=== PATIENT | male | born 1960 | race Caucasian/White ===

== ENCOUNTER 2023-03-15 09:04 | Outpatient (AMB) | payer OTHER, SELFPAY ==
--- NOTE | 2023-03-15 09:13 | AM.OFFWIN_ITS ---
Intake Vital Signs 03/15/23 09:16 Height 6 ft BP 130/80 Blood Pressure Location Lt brachial Position Sitting Pulse 58 Pulse Source Pulse Oximeter Temp 98.7 F Temp Source Oral Pulse Oximetry (%) 98 Oxygen Delivery Method Room Air Intake Visit Reasons: Rash Intake Note: Patient is here with rash in butt and groin area, he states that this ointment Fuoraucil cream and clotrimizole and betamethsone and desoninde cream. He states rash has been since Friday. Patient Tobacco Use Status: Never used Tobacco Allergies No Known Allergies Allergy (Verified 03/15/23 09:16) Do you need a note to return to daycare/school/sports/work: No HPI HPI Comments History of Present Illness Details This is a 62-year-old male who presents to the office today for sick visit. Patient complaining of erythema and drainage of his left scrotum. Patient states he has a chronic fungal or rash of his bottom and he has been utilizing fluorouracil/clotrimazole/betamethasone/desonide all combined together. He states he accidentally got some of this cream on his scrotum. Since then, he is having increased irritation, erythema, and drainage from his left PE: Erythema and purulent drainage and mild swelling of the left scrotal skin, otherwise benign A/P: Scrotal cellulitis, sent home on Keflex, advised not to utilize combination creams that are not supposed to be T other [facility] Social History Patient Tobacco Use Status: Never used Tobacco Review of Systems Const All systems reviewed & are unremarkable except as noted in HPI and below Reports no additional complaints Eyes Reports no additional complaints ENT Reports no additional complaints Card Reports no additional complaints Resp Reports no additional complaints GI Reports no additional complaints Reports no additional complaints Musc Reports no additional complaints Skin/Breast Reports system reviewed and no additional complaints, except as documented Neuro Reports no additional complaints Psych Reports no additional complaints Endo Reports no additional complaints Giuliano/Lymph Reports no additional complaints Aller/Immun Reports no additional complaints Physical Exam Vital Signs: Last Vital Signs Temp 98.7 F 03/15/23 09:16 Pulse 58 03/15/23 09:16 BP 130/80 03/15/23 09:16 Pulse Ox 98 03/15/23 09:16 Oxygen Delivery Method Room Air 03/15/23 09:16 Const General: cooperative, healthy appearing, no acute distress and well developed Orientation/consciousness: patient oriented x3 HEENT Head: Yes normal to inspection Ears: hearing grossly normal bilaterally General nose exam: Normal external nose present Face and sinus: Yes normal facial exam Mouth: Normal oral and palatal mucosa present Eyes General: appearance normal, both eyes and all related structures Pupils: Equal, round and reactive pupils present EOM: EOMs intact bilaterally Resp Effort & Inspection: normal respiratory effort and no respiratory distress Auscultation: clear to auscultation bilaterally Cardio Rate: regular rate Rhythm: regular rhythm Heart sounds: no gallops, no murmurs and no rubs Peripheral pulses: Peripheral pulses 2+ throughout GI Inspection: No distended Palpation (GI): Soft to palpation and nontender Auscultation: normal bowel sounds Skin Other: There is erythema/irritation with scant drainage from the skin of the left scrotum. No necrosis or bullae noted. No scrotal edema. Neuro General: patient oriented x3 Cranial nerves: Yes CN's II-XII intact bilaterally and Yes Equal, round and reactive pupils present Gait exam (Neuro): Normal gait present Motor exam (neuro): 5/5 motor strength present throughout Extrem General: Yes normal to inspection, Yes full ROM and Yes no clubbing, cyanosis or edema Psych Appearance: grossly normal Mental Status: mental status grossly normal Assessment & Plan Assessment & Plan (1) Cellulitis, scrotum: Code(s): N49.2 - Inflammatory disorders of scrotum Plan: This is a 62-year-old male presenting with irritation/erythema of his left scrotal skin. Patient's vital signs are stable and he is overall nontoxic appearing. On physical examination, there is erythema/irritation with scant drainage of the left scrotal skin. History and physical most consistent with scrotal cellulitis. No evidence of necrosis/bullae to suggest Elena gangrene. Patient is safe to be discharged home here. He was sent home on p.o. cephalexin 500 mg 4 times daily x5 days. He was also sent home on nystatin powder. Patient advised to follow-up here or proceed directly to the emergency room if he were to develop fever/chills, worsening erythema, or worsening drainage. Patient verbalizes understanding and he is in agreement with the plan. Medications: New cephalexin 500 mg PO QID 28 caps 0RF nystatin 1 appl topical BID 15 grams 0RF Coding Level of Care Code New Pt Level 3 (01651) Diagnoses Cellulitis, scrotum N49.2
[2023-03-15 09:16] VITALS: BP 130/80; PULSE 58; TEMP 37.1; O2SAT 98
== END 2023-03-15 09:29 | disposition home or self-care (01) ==
PROVIDERS: Visit Provider Physician Assistant Medical
DX: N49.2 Inflammatory disorders of scrotum (principal)
CPT/HCPCS: 99051; 99203

== ENCOUNTER 2023-07-31 10:31 | Emergency (ER) | payer OTHER, SELFPAY ==
--- NOTE | ~2023-07-31 | XR_ITS ---
EXAMINATION: XR ABDOMEN KUB CLINICAL INDICATION: Abdominal pain COMPARISON: None available. TECHNIQUE: AP view of the abdomen. FINDINGS: No dilated loops of bowel visualized. Mild fecal loading of the ascending colon. Pelvic phleboliths. Osseous structures are intact. Visualized portions of the lower chest are unremarkable. Soft tissues are unremarkable. XR/XR KUB IMPRESSION: 1. No dilated loops of bowel visualized. 2. Mild fecal loading of the ascending colon.
[2023-07-31 10:36] VITALS: BP 157/70; PULSE 70; RESP 18; TEMP 36.6; O2SAT 98; BMI 25.1
[2023-07-31 10:58] LABS: MANUAL DIFF FLAG NO
[2023-07-31 10:59] LABS: Basophils Percent Auto 0.3 % (0-2); Eosinophils Absolute Auto 0.1 X10*3/uL (0.0-0.4); Eosinophils Percent Auto 1.5 % (0-4); Hematocrit 41.7 % (42.0-52.0); Hemoglobin 14.2 g/dl (14.0-18.0); Imm Gran Abs Auto 0.02 X10*3/uL (0.00-0.03); Imm Gran Pct Auto 0.2 % (0.0-0.4); Lymphocytes Absolute Auto 1.7 X10*3/uL (1.2-4.9); Lymphocytes Percent Auto 17.9 % (20-40); Mean Corpuscular HGB Conc 34.1 g/dl (31.0-36.0); Mean Corpuscular Hemoglobin 31.6 pg (27.0-33.0); Mean Corpuscular Volume 92.9 fL (80.0-98.0); Mean Platelet Volume 9.5 fL (9.4-12.4); Monocytes Absolute Auto 0.7 X10*3/uL (0.1-1.2); Monocytes Percent Auto 7.7 % (2-11); Neutrophils Absolute Auto 6.7 x10*3/uL (2.0-8.3); Neutrophils Percent Auto 72.4 % (45-73); Platelet Count 285 X10*3/uL (160-400); Red Blood Count 4.49 X10*6/uL (4.60-5.80); Red Cell Distribution Width 11.5 % (11.0-16.0); White Blood Count 9.3 X10*3/uL (4.8-10.8)
[2023-07-31 11:12] LABS: Anion Gap 10 (12-20); Blood Urea Nitrogen 18 mg/dL (9-16); Calcium 9.2 mg/dL (8.4-10.2); Carbon Dioxide 26 mmol/L (22-29); Chloride 106 mmol/L (96-108); Creatinine Clr Calc Pharmacy 87.3; Estimated Glomerular Filt Rate > 60; Glucose Random 106 mg/dL (60-115); Sodium 138 mmol/L (135-145)
--- NOTE | 2023-07-31 11:41 | ED_ITS ---
HPI - General Adult General Chief complaint: Abdominal Pain Stated complaint: abd pain Time Seen by Provider: 07/31/23 11:40 Source: patient Mode of arrival: ambulatory Limitations: no limitations History of Present Illness HPI narrative: 63 year-old male with no past medical history presents to emergency department with abdominal pain since 07/24/2023. The patient states he had a large meal a week ago and he has been feeling bloated, passing gas, and feeling full ever since. He was concerned that his usual bowel movements have changed in frequency. He states he has had episodes of diarrhea which he describes as watery. He passed stool this morning, 07/31/2023, which he described as smooth and sausage-like and he has had flatulence for the past week. He tried to take GasX, but it did not alleviate his symptoms. He has had no sick contacts or travel history in the last month. He reports he has increased his water intake and has skipped his morning breakfast despite having an appetite to try and alleviate his symptoms. The patient denies fever, loss of appetite, night sweats, fatigue, vision changes, loss of vision, double vision, chest pain, palpitations, lightheadedness, dizziness, nausea, vomiting, and changes in urination. Onset (ago): week(s) (1 week ago) Location: abdomen Radiation: non-radiation Severity: mild Severity scale (1-10): 1 Quality: other (discomfort) Relieving factors: none Exacerbating factors: none Associated symptoms: denies other symptoms Treatments prior to arrival: none Related Data Previous Rx's Medication Instructions Recorded cephalexin 500 mg capsule 500 mg PO QID #28 caps 03/15/23 nystatin 100,000 unit/gram topical 1 appl topical BID #15 grams 03/15/23 powder Allergies Allergy/AdvReac Type Severity Reaction Status Date / Time No Known Allergies Allergy Verified 07/31/23 10:36 Review of Systems 2 Constitutional: Constitutional: Reports no additional constitutional complaints, Denies chills, Denies fever(s) and Denies night sweats Eyes: Eyes: Reports no additional eye complaints, Denies blurry vision, Denies change in vision, Denies diplopia, Denies eye discharge, Denies loss of vision and Denies eye pain ENT: Denies dizziness Cardiovascular: Cardiovascular: Reports no additional cardiovascular complaints, Denies chest pain, Denies lightheadedness, Denies Loss of Consciousness and Denies dyspnea Respiratory: Respiratory: Reports no additional respiratory complaints and Denies dyspnea Gastrointestinal: Gastrointestinal: Reports no additional gastrointestinal complaints, Reports abdominal pain, Denies melena, Denies hematochezia, Reports change in bowel habits, Reports change in stool character, Reports constipation and Reports diarrhea Genitourinary: Genitourinary: Reports no additional male genitourinary complaints, Denies hematuria, Denies oliguria, Denies difficulty urinating, Denies dysuria, Denies urinary frequency, Denies urinary hesitancy, Denies urinary incontinence and Denies urinary urgency Musculoskeletal: Musculoskeletal: Reports no additional musculoskeletal complaints, Denies numbness and Denies tingling Neurologic: Denies dizziness, Denies loss of vision, Denies numbness and Denies tingling Psychiatric: Psychiatric: Reports no additional psychiatric complaints Endocrine: Endocrine: Reports no additional endocrine complaints Hematologic/Lymphatic: Hematologic/Lymphatic: Reports no additional hematologic/lymphatic complaints Allergic/Immunologic: Allergic/Immunologic: Reports no additional allergic/immunologic complaints PMFSH Past Medical History Attestation statement: The following information was validated with the patient. Source: old records reviewed and nursing notes reviewed Onset Date is defined in the Problem List Problems that require an onset date and time if occurred within 24 hrs of arrival to the ED Aortic Dissection and Rupture; Neurologic impairment; Cardiopulmonary Arrest; Endotracheal Intubation; Insertion or Replacement of Mechanical Circulatory Assist Device Social History Social History Patient Tobacco Use Status: Never used Tobacco Physical Exam ED Vital Signs: Vital Signs - 24 hr 07/31/23 10:36 07/31/23 12:46 Temperature 98 F 98.3 F Pulse Rate 70 68 Respiratory Rate 18 16 Blood Pressure 157/70 H 145/79 H Pulse Oximetry 98 100 Oxygen Delivery Method Room Air Room Air BMI result Body Mass Index 25.1 Const General: cooperative, no acute distress, alert and awake Nutritional Appearance: well nourished Orientation/consciousness: patient oriented x3 Limitations: no limitations HENMT Head: Yes normal to inspection and Yes atraumatic Ears: hearing grossly normal bilaterally and external ears normal General nose exam: Normal external nose present, no nasal discharge noted and no epistaxis Face and sinus: Yes normal facial exam, No abrasion and No laceration Mouth: Normal oral and palatal mucosa present, no drooling and no muffled voice Eyes General: appearance normal, both eyes and all related structures Periorbital: periorbital findings normal Eyelids: Yes eyelids normal Conjunctivae: conjunctivae normal Pupils: Equal, round and reactive pupils present EOM: EOMs intact bilaterally Neck Neck: Yes normal visual inspection, Yes full ROM and Yes no lymphadenopathy Chest Chest palpation & inspection: normal inspection of the chest Resp Effort & Inspection: normal respiratory effort and able to speak in complete sentences GI Inspection: Yes normal to inspection Palpation (GI): Soft to palpation, not firm, nontender, no guarding and not rigid Neuro General: patient oriented x3 and moves all extremities Cranial nerves: Yes Equal, round and reactive pupils present Cognition (Neuro): normal cognition Motor exam (neuro): 5/5 motor strength present throughout Sensory Exam: Normal double simultaneous stimulation for sensation Coordination: [id number] test normal Extrem General: Yes normal to inspection, Yes full ROM and Yes capillary refill normal Psych Appearance: grossly normal Mental Status: mental status grossly normal Affect: normal affect Attitude: cooperative Thought process: Normal thought process present Thought content: Normal thought content present Insight: Good insight present (Psych) Medical Decision Making Medical Decision Making MDM Narrative: Patient is a 62 year old assigned male at with no reported medical history presenting to the emergency department today with abdominal pain and change in bowel frequency. Patient's physical exam was unremarkable. Patient's blood work was unremarkable. Patient's urine showed no acute process. Patient's KUB x-ray showed mild constipation. I explained my physical exam findings as well as all test results to the patient. I answered all questions asked by the patient. I stressed the importance of the patient taking his medication as prescribed. I stressed the importance of the patient following up with his primary care provider. I stressed the importance of the patient returning to the emergency department immediately if his symptoms were to worsen or if he were to develop any dizziness, shortness of breath, difficulty breathing, chest pain, blurry vision, loss of vision, nausea, vomiting, abdominal pain, fever, chills, back pain, or any other complaints. Patient verbalized agreement and understanding with this treatment plan and discharge. Differential Diagnosis Differential Diagnoses: The differential diagnosis associated with the presentation includes Constipation Abdominal pain Diarrhea Admission/Observation Consideration of admission/observation: Escalation of care including admission/observation considered Patient would have been admitted to the hospital had his work up had any findings where hospital admission was appropriate and his clinical presentation warranted hospital admission. Lab Data [facility] Lab Attestation statement: I reviewed the patient's lab results. My interpretation of these results are in the [facility] Rationale portion of this note. 07/31/23 10:52 07/31/23 10:52 Labs: Lab Results 07/31/23 07/31/23 07/31/23 Range/Units 10:52 11:59 13:41 WBC 9.3 (4.8-10.8) X10*3/uL RBC 4.49 L (4.60-5.80) X10*6/uL Hgb 14.2 (14.0-18.0) g/dl Hct 41.7 L (42.0-52.0) % MCV 92.9 (80.0-98.0) fL MCH 31.6 (27.0-33.0) pg MCHC 34.1 (31.0-36.0) g/dl RDW 11.5 (11.0-16.0) % Plt Count 285 (160-400) X10*3/uL MPV 9.5 (9.4-12.4) fL Immature Gran % (Auto) 0.2 (0.0-0.4) % Neut % (Auto) 72.4 (45-73) % Lymph % (Auto) 17.9 L (20-40) % [place] % (Auto) 7.7 (2-11) % Eos % (Auto) 1.5 (0-4) % Baso % (Auto) 0.3 (0-2) % Lymph # (Auto) 1.7 (1.2-4.9) X10*3/uL [place] # (Auto) 0.7 (0.1-1.2) X10*3/uL Eos # (Auto) 0.1 (0.0-0.4) X10*3/uL Baso # (Auto) 0.0 (0.0-0.2) X10*3/uL Abs Immat Gran (auto) 0.02 (0.00-0.03) X10*3/uL Absolute Neuts (auto) 6.7 (2.0-8.3) x10*3/uL Absolute Nucleated RBC 0.000 (0.0-0.012) X10*3/uL Nucleated RBC % (auto) 0.0 (0.0-0.2) /100WBC Sodium 138 (135-145) mmol/L Potassium 4.0 (3.3-5.1) mmol/L Chloride 106 (96-108) mmol/L Carbon Dioxide 26 (22-29) mmol/L Anion Gap 10 L (12-20) BUN 18 H (9-16) mg/dL Creatinine 0.95 (0.5-1.4) mg/dL Estim Creat Clear Calc 87.3 Estimated GFR > 60 Random Glucose 106 (60-115) mg/dL Calcium 9.2 (8.4-10.2) mg/dL Magnesium 2.1 (1.6-2.6) mg/dL Total Bilirubin 0.7 (0.0-1.0) mg/dL Direct Bilirubin 0.2 (0.0-0.5) mg/dL AST 19 (5-37) U/L ALT 15 (0-40) U/L Alkaline Phosphatase 48 (39-117) U/L Total Protein 7.4 (6.5-8.0) g/dL Albumin 4.1 (3.5-5.0) g/dL Lipase 25 (8-78) U/L Urine Color Yellow Urine Appearance Clear Urine pH 5.0 (5.0-9.0) Ur Specific [place] 1.025 (1.005-1.025) Urine Protein Negative (Neg-Trace) mg/dL Urine Glucose (UA) Negative (Negative) mg/dL Urine Ketones Trace (Negative) mg/dL Urine Blood Negative (Negative) Urine Nitrite Negative (Negative) Ur Leukocyte Esterase Negative (Negative) COVID-19 ([place]) Negative (Negative) COVID-19 Clin Com See Note Influenza Type A ([facility]) Negative (Negative) Influenza Type B ([facility]) Negative (Negative) Influenza A & B Note See Note Independent Interpretation I performed an independent interpretation of an: Plain X-Ray Interpretation: My interpretation is in agreement with the radiologist's impression of this imaging study. - EXAMINATION: XR ABDOMEN KUB CLINICAL INDICATION: Abdominal pain COMPARISON: None available. TECHNIQUE: AP view of the abdomen. FINDINGS: No dilated loops of bowel visualized. Mild fecal loading of the ascending colon. Pelvic phleboliths. Osseous structures are intact. Visualized portions of the lower chest are unremarkable. Soft tissues are unremarkable. XR/XR KUB IMPRESSION: 1. No dilated loops of bowel visualized. 2. Mild fecal loading of the ascending colon. Dictated By: Irma Lipscomb MD Signed By: Electronically signed by Irma Lipscomb MD 07/31/23 1451 Radiology Impression Discussion of test interpretation with radiology: I have reviewed the radiologist's reading. Tests considered The following testing was considered but not selected: A CT scan of the abdomen/pelvis was considered however, the patient's current work up and clinical presentation did not warrant it. I explained this to the patient who verbalized understanding and agreement. Discharge Plan Discharge Clinical Impression: Constipation Patient Disposition: Home, Self-Care Instructions: Constipation (DC) Additional Instructions: Follow up with your primary care provider. Return to the emergency department immediately if your symptoms worsen or if you develop any dizziness, shortness of breath, difficulty breathing, chest pain, blurry vision, loss of vision, nausea, vomiting, abdominal pain, fever, chills, back pain, or any other complaints. Prescriptions: No Action cephalexin 500 mg capsule 500 mg PO QID Qty: 28 0RF nystatin 100,000 unit/gram powder 1 appl topical BID Qty: 15 0RF Referrals: [facility] [place]] (Call to establish and follow up with a primary care provider. If you already have a primary care provider, please follow up with them.) [facility] [place] [facility] [place] (Call to establish and follow up with a primary care provider. If you already have a primary care provider, please follow up with them.) [facility] [place] [facility] [place] (Call to establish and follow up with a primary care provider. If you already have a primary care provider, please follow up with them.) Discharge Date/Time: 07/31/23 14:11 Print Language: Peruvian
[2023-07-31 12:30] LABS: COVID-19 Test Negative (Negative); IDNOW Serial# 6674DD1D
[2023-07-31 12:32] LABS: IDNOW Serial# 152EDE1D; Influenza A Negative (Negative); Influenza B2 Negative (Negative)
[2023-07-31 12:45] LABS: Alanine Aminotransferase 15 U/L (0-40); Albumin Level 4.1 g/dL (3.5-5.0); Alkaline Phosphatase 48 U/L (39-117); Aspartate Amino Transferase 19 U/L (5-37); Bilirubin Direct 0.2 mg/dL (0.0-0.5); Bilirubin Total 0.7 mg/dL (0.0-1.0); Lipase 25 U/L (8-78); Magnesium 2.1 mg/dL (1.6-2.6); Total Protein 7.4 g/dL (6.5-8.0)
[2023-07-31 12:46] VITALS: BP 145/79; PULSE 68; RESP 16; TEMP 36.8; O2SAT 100
[2023-07-31 13:47] LABS: Appearance Urine Clear; Color Urine Yellow; Glucose Urine UA Negative (Negative); Leukocyte Esterase Urine Negative (Negative); Nitrite Urine Negative (Negative); Specific Gravity - Urine 1.025 (1.005-1.025); Urine Blood Negative (Negative); Urine Ketones Trace mg/dL (Negative); Urine Protein Negative (Neg-Trace)
== END 2023-07-31 14:11 | disposition home or self-care (01) ==
PROVIDERS: Physician Assistant Medical; Emergency Provider Emergency Medicine
DX: K59.00 Constipation, unspecified (principal); Z11.52 Encounter for screening for COVID-19
CPT/HCPCS: 36415; 74018; 80048; 80076; 81003; 83690; 83735; 85025; 87502; 87635; 99283

== ENCOUNTER 2023-08-15 09:01 | Outpatient (AMB) | payer OTHER, SELFPAY ==
--- NOTE | 2023-08-15 09:12 | MHC.PC.OV ---
Vital Signs 08/15/23 09:13 Height 6 ft Weight 190 lb 8 oz BMI 25.8 BP 128/84 Blood Pressure Location Rt brachial Position Sitting Pulse 72 Pulse Source Pulse Oximeter Pulse Oximetry (%) 100 Oxygen Delivery Method Room Air Intake Visit Reasons: EST care Intake Note: Pt is here to est care Pt has had 2 colon screening last one was 2019 Allergies No Known Allergies Allergy (Verified 08/15/23 09:23) Medication List - Last Reconciled 08/15/23 by DAVID Bernardo No Known Home Meds Tobacco use date assessed: 08/15/23 Dental Screening Dental Screen Date: 08/15/23 Did you have a dental visit in the last 12 months?: Yes Did you have a dental problem in the last 6 months where you did not have access to dental care?: No Was dental information given to patient?: Patient has dentist HPI HPI Comments History of Present Illness Details Patient is a 62-year-old male here to establish care. 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 He also has a medical history significant for nocturia. He last saw a urologist 8-10 years prior. He has had surgery of bilateral shoulder, right shoulder rotator cuff repair, left shoulder was labrum repair and biceps rupture repair. He also has a his of meniscus repair in the bilateral knees. Patient denies pain to these areas He states he has not had a primary care provider in several years. Patient just moved up from [facility]. He is declining the influenza and COVID booster this year. States he recently got both shingles vaccines. His most recent colonoscopy was in 2019, patient has agreed to send us medical records from his previous GI provider. Patient has a chief complaint of nocturia. He states that he has learned to live with the issue, however he wakes up several times at night and he feels tired in the morning. Denies numbness, tingling, pain. Denies blood in urine. Denies eating or drinking excessively before bedtime. [facility] Medical History (Updated 08/15/23 @ 10:06 by DAVID Bernardo) Biceps muscle tear Hearing loss in right ear Surgical History (Updated 08/15/23 @ 09:26 by DAVID Bernardo) S/P right rotator cuff repair H/O lateral meniscus repair of right knee Family History (Updated 08/15/23 @ 09:27 by DAVID Bernardo) Brother S/P CABG x 4 Social History Housing: House Alcohol intake: current Comment: 1 to 2 drinks per week Patient Tobacco Use Status: Never used Tobacco e-Cigarette/Vaping Use: Never Used Second Hand Smoke Exposure: No service: No Current occupational status: retired Cognitive needs: No Hearing needs: No Vision needs: No Questionnaire PHQ-9 Over the last 2 weeks, how often have you been bothered by any of the following problems? 1. Little interest or pleasure in doing things: not at all 2. Feeling down, depressed, or hopeless: not at all 3. Trouble falling or staying asleep, or sleeping too much: not at all 4. Feeling tired or having little energy: not at all 5. Poor appetite or overeating: not at all 6. Feeling bad about yourself - or that you are a failure or have let yourself or your family down: not at all 7. Trouble concentrating on things, such as reading the newspaper or watching television: not at all 8. Moving or speaking so slowly that other people could have noticed. Or the opposite - being so fidgety or restless that you have been moving around a lot more than usual: not at all 9. Thoughts that you would be better off or of hurting yourself in some way: not at all Total score: 0 Depression Screening Interpretation: Negative Depression Screening Done: Yes 73460 - PHQ-9 Billing: Yes Source: Developed by Drs. Dionicio Marino, Ashley Alford, Mckinley Dominguez and colleagues, with an educational magda from [employer]. Thrive Questionnaire Date Thrive assessed: 08/15/23 I am a: Patient What is your living situation today?: I have a steady place to live Within the past 12 months, did the food you bought not last and you didn't have the money to get more?: Never true Within the past 12 months, did you worry whether your food would run out before you got money to buy more?: Never true Do you have trouble paying for medicines?: No Do you have trouble getting transportation to medical appointments?: No Do you have trouble paying your heating and electricity bill?: No Do you have trouble taking care of your child, family member or friend?: No Do you have trouble with day-to-day activities such as bathing, preparing meals, shopping, managing finances, etc.?: No Are you currently unemployed and looking for a job?: No Are you interested in more education?: No THRIVE Score: 0 AUDIT C Alcohol Use Questionnaire (AUDIT-C) 1. How often do you have a drink containing alcohol?: 4 or more times a week 2. How many drinks containing alcohol do you have on a typical day when you are drinking?: 1 or 2 3. How often do you have six or more drinks on one occasion?: Never Total Score: 4 EVERETT-7 AMB Questionnaire EVERETT-7 Date EVERETT - 7 assessed: 08/15/23 Feeling nervous, anxious, or on edge: 0 = Not at all Not being able to stop or control worryin = Not at all Worrying too much about different things: 0 = Not at all Trouble relaxin = Not at all Being so restless that it is hard to sit still: 0 = Not at all Becoming easily annoyed or irritable: 0 = Not at all Feeling afraid as if something awful might happen: 0 = Not at all Total EVERETT-7 score (0-4 normal; 5-9 mild; 10-14 moderate; 15-21 severe): 0 Source: Developed by Drs. Dionicio Marino, Ashley Alford, Mckinley Dominguez and colleagues, with an educational magda from [employer]. EVERETT-7 Assessment Billing EVERETT-7 Assessment Tool: EVERETT-7 Assessment 47101 Review of Systems Const Details: Constitutional : No Weight loss, No Fever, No Chills, No Fatigue, No Malaise Cardiovascular : No Chest Pain, No SOB, No Dyspnea on Exertion, No Orthopnea, No Edema, No Palpitations Respiratory : No Cough, No Sputum, No Wheezing Gastrointestinal : No Nausea, No Vomiting, No Diarrhea, No Constipation, No abdominal Pain, No Hematochezia, No Melena Genitourinary : No Dysuria, Admits nocturia. Musculoskeletal : No joint pain, No Myalgias, No Joint Swelling Skin : No Skin Lesions, No rash Neuro : No Weakness, No Numbness, No Dizziness, No Headache Psych : No Anxiety/Panic, No Depression Heme/Lymph: No Bruising, No Bleeding,No Lymphadenopathy Endocrine : No Polyuria, No Polydipsia All other systems reviewed and are negative Physical exam (Primary Care) Care Plan Goal for BP management: Vital signs reviewed are stable BMI result Body Mass Index 25.8 Tobacco/Smoking Status: Tobacco use Status Tobacco use date assessed 08/15/23 08/15/23 09:17 Patient Tobacco Use Status Never used Tobacco 08/15/23 09:17 e-Cigarette/Vaping Use Never Used 08/15/23 09:17 Depression Screening Interpretation: Negative Const General: cooperative and no acute distress Orientation/consciousness: patient oriented x3 Limitations: no limitations HENMT Head: Yes normal to inspection and Yes normocephalic Teeth and gingiva: dentition normal Throat: Yes posterior oropharynx normal Eyes General: appearance normal, both eyes and all related structures Neck Neck: Yes normal visual inspection, Yes full ROM and Yes no lymphadenopathy Resp Auscultation: clear to auscultation bilaterally Cardio Rate: regular rate Rhythm: regular rhythm Heart sounds: S1 normal heart sound present and S2 normal heart sound present Peripheral pulses: Peripheral pulses 2+ throughout Neuro General: patient oriented x3 and CN's II-XI intact bilaterally Gait exam (Neuro): Normal gait present Motor exam (neuro): 5/5 motor strength present throughout Deep tendon reflexes (DTR's): Right patellar reflex intensity grade: 2+ and Left patellar reflex intensity grade: 2+ Psych Thought content: Normal thought content present Insight: Good insight present (Psych) Judgement: Good judgement present (Psych) Assessment and Plan Assessment & Plan (1) Nocturia: Comment: Going to draw labs including PSA. Patient will get referral to Urology. Code(s): R35.1 - Nocturia Plan: Take your medications as prescribed. If you were prescribed antibiotics today, it is important that you take your medication to their entirety, do not skip any doses, do not finish them early. Follow-up with your primary care provider this week. Return to the emergency department with new or worsening symptoms. Such as fevers, chills, chest pain, shortness of breath, nausea, vomiting, dizziness, headache, vision changes, lethargy In case of emergency call 911 Plan Will follow-up with labs. Patient will have annual physical in 5 months. Orders: Orders Comprehensive [place]. Panel Fast Today Z91.89 - Other specified personal risk factors, not elsewhere classified Lipid Panel Today Z13.220 - Encounter for screening for lipoid disorders Vitamin B6 Today Z13.21 - Encounter for screening for nutritional disorder UA CC w/rflx Micro + Cult Today E86.0 - Dehydration TSH reflex Free T4 Today Z13.29 - Encounter for screening for other suspected endocrine disorder Complete Blood Count Auto Diff Today Z13.0 - Encounter for screening for diseases of the blood and blood-forming organs and certain disorders involving the immune mechanism PSA,Total (Free>4and<10) Today Z12.5 - Encounter for screening for malignant neoplasm of prostate Vitamin D 25-OH (D2 and D3) Today Z13.21 - Encounter for screening for nutritional disorder Vitamin B12 Today Z13.21 - Encounter for screening for nutritional disorder Referrals Urology Referral R35.1 - Nocturia Review Flu Vaccine not done: patient reason Coding Level of Care Code Est Pt Level 3 (94190) Diagnoses Nocturia R35.1 Additional Codes EVERETT-7 Assessment Billing - EVERETT-7 Assessment Tool: EVERETT-7 Assessment 40605 ([id number]) Time Spent (min) 45
[2023-08-15 09:13] VITALS: BP 128/84; PULSE 72; O2SAT 100; BMI 25.8
== END 2023-08-15 09:48 | disposition home or self-care (01) ==
PROVIDERS: Visit Provider Nurse Practitioner Primary Care
DX: R35.1 Nocturia (principal)
CPT/HCPCS: 99213

== ENCOUNTER 2023-08-15 09:57 | Outpatient (REF) | payer OTHER, SELFPAY ==
[2023-08-15 13:16] LABS: Appearance Urine Turbid; Color Urine Yellow; Glucose Urine UA Negative (Negative); Leukocyte Esterase Urine Negative (Negative); Nitrite Urine Negative (Negative); PH 5.5 (5.0-9.0); Specific Gravity - Urine 1.025 (1.005-1.025); Urine Blood Negative (Negative); Urine Ketones Trace mg/dL (Negative); Urine Protein Negative (Neg-Trace)
[2023-08-15 13:17] LABS: MANUAL DIFF FLAG NO
[2023-08-15 13:31] LABS: Basophils Percent Auto 0.6 % (0-2); Eosinophils Absolute Auto 0.3 X10*3/uL (0.0-0.4); Eosinophils Percent Auto 3.8 % (0-4); Hematocrit 43.9 % (42.0-52.0); Hemoglobin 14.7 g/dl (14.0-18.0); Imm Gran Abs Auto 0.01 X10*3/uL (0.00-0.03); Imm Gran Pct Auto 0.1 % (0.0-0.4); Lymphocytes Absolute Auto 1.5 X10*3/uL (1.2-4.9); Lymphocytes Percent Auto 21.8 % (20-40); Mean Corpuscular HGB Conc 33.5 g/dl (31.0-36.0); Mean Corpuscular Hemoglobin 31.5 pg (27.0-33.0); Mean Platelet Volume 10.6 fL (9.4-12.4); Monocytes Absolute Auto 0.3 X10*3/uL (0.1-1.2); Neutrophils Absolute Auto 4.7 x10*3/uL (2.0-8.3); Neutrophils Percent Auto 68.7 % (45-73); Platelet Count 307 X10*3/uL (160-400); Red Blood Count 4.67 X10*6/uL (4.60-5.80); White Blood Count 6.8 X10*3/uL (4.8-10.8)
[2023-08-15 14:02] LABS: Alanine Aminotransferase 15 U/L (0-40); Albumin Level 4.2 g/dL (3.5-5.0); Alkaline Phosphatase 45 U/L (39-117); Anion Gap 12 (12-20); Aspartate Amino Transferase 20 U/L (5-37); Bilirubin Total 0.5 mg/dL (0.0-1.0); Blood Urea Nitrogen 21 mg/dL (9-16); Calcium 9.5 mg/dL (8.4-10.2); Carbon Dioxide 25 mmol/L (22-29); Chloride 105 mmol/L (96-108); Cholesterol 190 mg/dL (<200); Estimated Glomerular Filt Rate > 60; Glucose Fasting 92 mg/dL (60-99); HDL Cholesterol 57 mg/dL (>40); LDL Cholesterol Calculated 126 mg/dL (<100); Potassium 4.4 mmol/L (3.3-5.1); Sodium 138 mmol/L (135-145); TSH reflex Free T4 3.42 uIU/mL (0.32-4.0); Total Protein 7.4 g/dL (6.5-8.0); Triglycerides 39 mg/dL (<150)
[2023-08-15 14:03] LABS: PSA,Total (Free>4and<10) 0.81 ng/mL (0.00-4.00)
[2023-08-15 14:10] LABS: Vitamin B12 718 pg/mL (200-900)
[2023-08-20 15:42] LABS: Vitamin D 25-OH, D2 <4 ng/mL; Vitamin D 25-OH, D3 26 ng/mL; Vitamin D 25-OH, Total 26 ng/mL (30-100)
[2023-08-21 17:15] LABS: Vitamin B6 25.8 ng/mL (2.1-21.7)
== END 2023-08-15 09:58 | disposition home or self-care (01) ==
LOC: HO.HMGCLDS 09:57
PROVIDERS: PCP Nurse Practitioner Primary Care; Visit Provider Nurse Practitioner Primary Care
DX: E86.0 Dehydration (principal); Z91.89 Other specified personal risk factors, not elsewhere classified; Z13.220 Encounter for screening for lipoid disorders; Z13.29 Encounter for screening for other suspected endocrine disorder; Z13.21 Encounter for screening for nutritional disorder; Z13.0 Encounter for screening for diseases of the blood and blood-forming organs and certain disorders involving the immune mechanism; Z12.5 Encounter for screening for malignant neoplasm of prostate
CPT/HCPCS: 36415; 80053; 80061; 81003; 82306; 82607; 84153; 84207; 84443; 85025

== ENCOUNTER 2023-10-23 08:56 | Outpatient (AMB) | payer OTHER, SELFPAY ==
--- NOTE | 2023-10-23 08:58 | A.OFFVIS_ITS ---
Intake Intake Visit Reasons: Nocturia Intake Note: NEW Patient presents today to established treatment for Nocturia: Meds- None Allergies to Antibiotic- No Known Allergies Blood Thinner- None Post Void Residual: 27 mL Mower Operator Required: No Accompanied by: Self / Same As Patient Allergies No Known Allergies Allergy (Verified 10/23/23 08:59) Medication List - Last Reconciled 10/23/23 by Hilton Rivas MD No Known Home Meds HPI HPI Comments History of Present Illness Details Frankie is a 62-year-old male who is here with complaints of urinating frequently especially at nighttime. He states that he has seen urologist in the past dating back to about 10 years ago. He states that in the past he had a procedure on the prostate. He has been told that his prostate is not enlarged. He is up at night to urinate every 1-1/2-2 hours. He states he also goes frequently during the day. He admits to not drinking a lot of water, however he denies excessive caffeine intake. He denies history of nicotine use. He states that he thinks he passed a kidney stone in the past. AUA symptom score 30. He has not taking any prescribed medication. Labs reviewed-PSA 08/15/2023--0.81 ng/mL. Bladder scan PVR 27 mL. Urinalysis 0 leukocytes, 0 blood. Prostate exam- nontender smooth. Plan discussed voiding diary for 3 days, urodynamics, ultrasound retrope ritoneum. [facility] Medical History Biceps muscle tear Hearing loss in right ear Surgical History S/P right rotator cuff repair H/O lateral meniscus repair of right knee Family History Brother S/P CABG x 4 Social History Housing: House Alcohol intake: current Comment: 1 to 2 drinks per week Patient Tobacco Use Status: Never used Tobacco e-Cigarette/Vaping Use: Never Used Second Hand Smoke Exposure: No service: No Current occupational status: retired Cognitive needs: No Hearing needs: No Vision needs: No Questionnaire AUA Symptom Score AUA Incomplete emptying - It does not feel like I empty my bladder all the way.: 4 - More than half the time Frequency - I have to go again less than two hours after I finish urinating.: 5 - Almost always Intermittency - I stop and start again several times when I urinate.: 4 - More than half the time Urgency - It is hard to wait when I have to urinate.: 3 - About half the time Weak stream - I have a weak urinary stream.: 5 - Almost always Straining - I have to push or strain to begin urination.: 4 - More than half the time Nocturia - I get up to urinate after I go to bed until the time I get up in the morning.: 5 time or more AUA Symptom Score: 30 Quality of life due to urinary symptoms: If you were to spend the rest of your life with your urinary condition the way it is now, how would you feel about that?: Mostly dissatisfied Source: Allen HUFFMAN, An GONZALEZ Jr, O'Rubin MP, et al, and the Measurement Committee of the [employer] [employer]. The [place] [employer] symptom index for benign prostatic hyperplasia. J Urol. 1992; 148: 4082-8208. Copyright 1992 [place] [employer] Review of Systems Const All systems reviewed & are unremarkable except as noted in HPI and below Reports no additional complaints Eyes Reports no additional complaints ENT Reports no additional complaints Card Reports no additional complaints Resp Reports no additional complaints GI Reports no additional complaints Reports as per HPI Musc Reports no additional complaints Skin/Breast Reports system reviewed and no additional complaints, except as documented Neuro Reports no additional complaints Psych Reports no additional complaints Endo Reports no additional complaints Giuliano/Lymph Reports no additional complaints Aller/Immun Reports no additional complaints Physical Exam Const General: healthy appearing, no acute distress and well developed Orientation/consciousness: patient oriented x3 HEENT Head: Yes normocephalic and Yes atraumatic Eyes Conjunctivae: conjunctivae normal Neck Neck: Yes normal visual inspection Chest Chest palpation & inspection: normal inspection of the chest Resp Effort & Inspection: normal respiratory effort Cardio Rate: regular rate GI Inspection: Yes normal to inspection Other: Prostate Exam: Smooth, nontender Skin General skin exam: no rashes or lesions noted Neuro General: patient oriented x3 Extrem General: No pedal edema Psych Appearance: grossly normal Affect: normal affect Office Procedures Post Void Residual Post Residual Void Post Void Residual (PVR): 27 [id number] Void Residual by ultrasound Results AMB Urinalysis, Automated UA Leukoctes 0 Kp/uL Last Edit by MAITE Pierson on 10/23/23 09:23 UA Nitrite Negative Last Edit by MAITE Pierson on 10/23/23 09:23 UA Urobilinogen 0.2 mg/dL Last Edit by MAITE Pierson on 10/23/23 09:2 3 UA Protein 0 mg/dL Last Edit by MAITE Pierson on 10/23/23 09:23 UA pH 5.0 Last Edit by MAITE Pierson on 10/23/23 09:23 UA Blood 0 Александр/uL Last Edit by MAITE Pierson on 10/23/23 09:23 UA Specific [place] 1.020 Last Edit by MAITE Pierson on 10/23/23 09: 23 UA Ketone Negative Last Edit by MAITE Pierson on 10/23/23 09:23 UA Bilirubin 0 mg/dL Last Edit by MAITE Pierson on 10/23/23 09:23 UA Glucose 0 mg/dL Last Edit by MAITE Pierson on 10/23/23 09:23 Results Reviewed Results Reviewed: Laboratory Last Values Urine pH (Auto) 5.0 10/23/23 09:07 Specific [place] (Auto) 1.020 10/23/23 09:07 Urine Protein (Auto) 0 mg/dL 10/23/23 09:07 Glucose (UA)(Auto) 0 mg/dL 10/23/23 09:07 Urine Ketones (Auto) Negative 10/23/23 09:07 Urine Blood (Auto) 0 Александр/uL 10/23/23 09:07 Urine Nitrite (Auto) Negative 10/23/23 09:07 Urine Bilirubin (Auto) 0 mg/dL 10/23/23 09:07 Urine Urobilinogen (Auto) 0.2 mg/dL 10/23/23 09:07 Leukocyte Esterase (Auto) 0 Kp/uL 10/23/23 09:07 Assessment & Plan Assessment & Plan (1) Nocturia: Comment: Going to draw labs including PSA. Patient will get referral to Urology. Code(s): R35.1 - Nocturia (2) History of kidney stones: Code(s): Z87.442 - Personal history of urinary calculi (3) Urinary frequency: Code(s): R35.0 - Frequency of micturition Plan Plan discussed voiding diary for 3 days, urodynamics, ultrasound retroperitoneum. Orders: Orders AMB Post Void Residual by ultrasound Today N39.8 - Other specified disorders of urinary system US retroperitoneal comp Today R35.0 - Frequency of micturition, R35.1 - Nocturia, Z87.442 - Personal history of urinary calculi AMB Urinalysis Automated Today Z13.9 - Encounter for screening, unspecified Patient Instructions: The patient had an opportunity to ask questions regarding treatment plan. All questions were answered. Laboratory studies and physical exam results were discussed and reviewed in detail. No major barriers to understanding were identified. The patient expressed understanding and agreement with the above treatment plan. The patient is aware they should contact our office by phone for worsening of their current condition or the appearance of new symptoms. Compliance is encouraged with any medications and followup testing that is ordered. It is a privilege to be allowed the opportunity to participate in the urologic care of your patient. If you have any questions or concerns regarding treatment for the above conditions please do not hesitate to contact me. The office telephone contact is [phone]. This note is constructed in part using voice recognition software. While every effort has been made to ensure accuracy device engineer errors may have been included. Yours sincerely, Hilton Rivas MD Quality Reporting (2019) Benign Prostatic Hyperplasia ([facility] 771) AUA symptom score: 30 Quality of life due to urinary symptoms: If you were to spend the rest of your life with your urinary condition the way it is now, how would you feel about that?: Mostly dissatisfied Coding Level of Care Code New Pt Level 4 (19175) Diagnoses Nocturia R35.1 History of kidney stones Z87.442 Urinary frequency R35.0 CPT Codes Post Residual Void - PVR CPT Code: 02527-Pcpa Void Residual by ultrasound ([id number])
== END 2023-10-23 10:25 | disposition home or self-care (01) ==
PROVIDERS: PCP Nurse Practitioner Primary Care; Visit Provider Urology
DX: R35.1 Nocturia (principal); Z87.442 Personal history of urinary calculi; R35.0 Frequency of micturition; Z13.9 Encounter for screening, unspecified
CPT/HCPCS: 99204

== ENCOUNTER → 2023-10-23 08:56 | Outpatient (BNVA) | payer OTHER, SELFPAY | PROVIDERS: PCP Nurse Practitioner Primary Care; Visit Provider Urology | DX: R35.1 Nocturia (principal); R35.0 Frequency of micturition; Z87.442 Personal history of urinary calculi | CPT/HCPCS: 51798; 81003; 99202 ==

== ENCOUNTER 2023-11-11 09:03 | Outpatient (REF) | payer OTHER, SELFPAY ==
--- NOTE | ~2023-11-11 | US_ITS ---
EXAMINATION: US RETROPERITONEAL COMPLETE (RENAL) CLINICAL INFORMATION: Nocturia. COMPARISON: X-ray abdomen KUB 07/31/2023. TECHNIQUE: Real-time imaging of the kidneys and bladder. FINDINGS: RIGHT KIDNEY: 11.5 x 5.2 x 4.5 cm (SAG x AP x TRV). The kidney is normal in size, contour, and echogenicity. Renal cortical thickness is normal. No calculi or focal parenchymal lesions. No hydronephrosis. LEFT KIDNEY: 10.7 x 6.3 x 5.5 cm (SAG x AP x TRV). The kidney is normal in size, contour, and echogenicity. Renal cortical thickness is normal. No calculi or focal parenchymal lesions. No hydronephrosis. BLADDER: Distended urinary bladder at 390 mL prevoid. Two attempts at voiding. Post void residual 313 mL. ADDITIONAL FINDINGS: Prostate measures 34 mL US/US retroperitoneal comp IMPRESSION: Enlarged prostate measuring 34 mL. No hydronephrosis. Distended urinary bladder with prevoid volume 390 mL and post void (2 attempts) residual volume 313 mL.
== END 2023-11-11 09:04 | disposition home or self-care (01) ==
LOC: HO.HMGCX 09:03
PROVIDERS: PCP Nurse Practitioner Primary Care; Visit Provider Urology
DX: R35.1 Nocturia (principal); R35.0 Frequency of micturition; Z87.442 Personal history of urinary calculi
CPT/HCPCS: 76770

== ENCOUNTER 2023-11-24 15:47 | Outpatient (REF) | payer OTHER, SELFPAY | END 2023-11-24 15:48 | disposition home or self-care (01) | LOC: HO.LAB 15:47 | PROVIDERS: Visit Provider Urology | DX: N39.0 Urinary tract infection, site not specified (principal) | CPT/HCPCS: 87086 ==

== ENCOUNTER 2023-12-05 08:12 | Outpatient (AMB) | payer OTHER, SELFPAY ==
--- NOTE | 2023-12-05 08:09 | A.OFFVIS_ITS ---
Intake Visit Reasons: Urodynamics Intake Note: Patient presents today for a URODYNAMIC Procedure: Meds: None Allergies to Antibiotic: No Known Allergies Blood Thinner: None Residential Carpet Installer Required: No Accompanied by: Self / Same As Patient Allergies No Known Allergies Allergy (Verified 10/23/23 08:59) Medication List - Last Reconciled 12/05/23 by Hilton Rivas MD mirabegron ER (Myrbetriq) 50 mg PO DAILY tamsulosin (Flomax) 0.4 mg PO BEDTIME HPI Comments Details: 12/05/23--Here for CMG/Urodynamics. Completed a 3 day voiding diary voids were between 50 and at the highest 200 mL average volume was 90 mL per void. Frequency on average every hour to every 2-1/2 hours. CMG parameters detailed below. Interpretation: During the filling phase 1st sensation, was 49; sensory urgency was noted, first desire was 66 mL and strong desire was noted at 92 mL significant detrusor contractions were not noted during the filling phase bladder capacity was less than average, the patient felt that he was at capacity at 217 mL. He was unable to void with urethral catheter in place. He voided 125 mL after catheters were removed. Leakage was not observed during cough. Findings consistent with less than average functional bladder capacity, and sensory urgency. EMG- Appropriate changes in the waveforms were noted through out the study. I have discussed treatment options to include therapy for improving bladder compliance and outlet relaxation. The patient states he had a procedure on the prostate over 10 years ago. I have reviewed medication therapies as well as Botox bladder injection and sacral neuromodulation. The patient is agreeable to trial an anticholinergic and alpha-konrad. Myrbetriq 50 mg qday, tamsulosin daily in the evening. Risks and benefits discussed including but not limited to dizziness and retrograde ejaculation. Discussed renal ultrasound 11/11/2023- kidneys within normal limits large postvoid residual, estimated prostate volume 34 mL. Review of chart: 10/23/23--Frankie is a 62-year-old male who is here with complaints of urinating frequently especially at nighttime. He states that he has seen urologist in the past dating back to about 10 years ago. He states that in the past he had a procedure on the prostate. He has been told that his prostate is not enlarged. He is up at night to urinate every 1-1/2-2 hours. He states he also goes frequently during the day. He admits to not drinking a lot of water, however he denies excessive caffeine intake. He denies history of nicotine use. He states that he thinks he passed a kidney stone in the past. AUA symptom score 30. He has not taking any prescribed medication. Labs reviewed-PSA 08/15/2023--0.81 ng/mL. Bladder scan PVR 27 mL. Urinalysis 0 leukocytes, 0 blood. Prostate exam-nontender smooth. Plan discussed voiding diary for 3 days, urodynamics, ultrasound retroperitoneum. [facility] Medical History Biceps muscle tear Hearing loss in right ear Surgical History S/P right rotator cuff repair H/O lateral meniscus repair of right knee Family History Brother S/P CABG x 4 Social History Housing: House Alcohol intake: current Comment: 1 to 2 drinks per week Patient Tobacco Use Status: Never used Tobacco e-Cigarette/Vaping Use: Never Used Second Hand Smoke Exposure: No service: No Current occupational status: retired Cognitive needs: No Hearing needs: No Vision needs: No Review of Systems Const All systems reviewed & are unremarkable except as noted in HPI and below Reports no additional complaints Eyes Reports no additional complaints ENT Reports no additional complaints Card Reports no additional complaints Resp Reports no additional complaints GI Reports no additional complaints Reports as per HPI Musc Reports no additional complaints Skin/Breast Reports system reviewed and no additional complaints, except as documented Neuro Reports no additional complaints Psych Reports no additional complaints Endo Reports no additional complaints Giuliano/Lymph Reports no additional complaints Aller/Immun Reports no additional complaints Office Procedures Urodynamic Studies Consent Discussed risk and benefit or proposed procedure with the patient. Information consent for procedure given to the patient. Discussed technical aspects, risks, benefits and alternatives in full. Addressed all of the patient's questions and concerns regarding the procedure. The patient demonstrated knowledge and understanding. They wish to proceed with this procedure. Preparation The patient was prepped in the usual manner. A material attendant was present and in the room. Genitalia was prepped with betadine solution in a sterile manner. Procedure Complex Uroflow Complex uroflow performed by: Hilton Rivas Maximum urinary flow rate (mL/second): 5.2 Voiding time (seconds): 3.1 Voided volume (mL): 111 Residual urine (mL): 39 - measured by bladder scan Cystometrogram Vaginal/rectal catheter type: rectal First sensation at (mL): [] mL First desire at (mL): [] mL Strong desire to void occured at (mL): [] mL Strong desire detrussor pressure (cm H2O): [] Maximum fill (mL): [] mL Voided with max detrussor pressure of (cm H2O): [] Maximum flow rate (mL/second): [] mL/s Prep: The patient was prepped in the usual manner. A material attendant was present and in the room. Genitalia was prepped with betadine solution in a sterile manner. 99805-Tvpggfrndlrxjy w/ DECISION ANALYST 73985-Eqtnmmn-Brjdmzrangmb First 56719-Oqdw/Urinary Muscle Study 82219-Byoal-Acekhrggh Pressure Test Procedure code (CPT) selection complete Office Meds nitrofurantoin monohydrate/macrocrystals 100 mg capsule Performing Provider: Hilton Rivas MD [facility] Administered by: Dhaval Trotter LPN on 12/05/23 08:59 Dose Route Admin Location Dispensed Lot Number Expiration Date NDC Process Automation Engineer 100 mg PO 1 cap Results Reviewed Results Reviewed: Date of Service: 11/11/23 Now your urine bladder EXAMINATION: US RETROPERITONEAL COMPLETE (RENAL) CLINICAL INFORMATION: Nocturia. Bladder outlet 0 was bladder or there are 1 weight and maybe a little bit more urinate while COMPARISON: X-ray abdomen KUB 07/31/2023. TECHNIQUE: Real-time imaging of the kidneys and bladder. FINDINGS: RIGHT KIDNEY: 11.5 x 5.2 x 4.5 cm (SAG x AP x TRV). The kidney is normal in size, contour, and echogenicity. Renal cortical thickness is normal. No calculi or focal parenchymal lesions. No hydronephrosis. LEFT KIDNEY: 10.7 x 6.3 x 5.5 cm (SAG x AP x TRV). The kidney is normal in size, contour, and echogenicity. Renal cortical thickness is normal. No calculi or focal parenchymal lesions. No hydronephrosis. BLADDER: Distended urinary bladder at 390 mL prevoid. Two attempts at voiding. Post void residual 313 mL. ADDITIONAL FINDINGS: Prostate measures 34 mL IMPRESSION: Enlarged prostate measuring 34 mL. No hydronephrosis. Distended urinary bladder with prevoid volume 390 mL and post void (2 attempts) residual volume 313 mL. Assessment & Plan Assessment & Plan (1) Nocturia: Comment: Going to draw labs including PSA. Patient will get referral to Urology. Code(s): R35.1 - Nocturia Category: Medical (2) History of kidney stones: Code(s): Z87.442 - Personal history of urinary calculi Category: Medical (3) Urinary frequency: Code(s): R35.0 - Frequency of micturition Category: Medical Plan Mybetriq 50 mg daily Tamsulosin 0.4 mg daily After 30 days repeat voiding diary for 2 days Follow-up in 4 months Orders: Orders Urine Culture 11/24/23 N39.0 - Urinary tract infection, site not specified AMB Urodynamics Studies Today R35.0 - Frequency of micturition, R35.1 - Nocturia, Z87.442 - Personal history of urinary calculi Medications: New mirabegron ER (Myrbetriq) 50 mg PO DAILY 30 tabs 1RF tamsulosin (Flomax) 0.4 mg PO BEDTIME 30 caps 1RF Patient Instructions: The patient had an opportunity to ask questions regarding treatment plan. The patient expressed understanding and agreement with the above treatment plan. The patient is aware they should contact our office by phone for worsening of their current condition or the appearance of new symptoms. Compliance is encouraged with any medications and followup testing that is ordered. It is a privilege to be allowed the opportunity to participate in the urologic care of your patient. If you have any questions or concerns regarding treatment for the above conditions please do not hesitate to contact me. The office telephone contact is [phone]. This note is constructed in part using voice recognition software. While every effort has been made to ensure accuracy thermometer maker errors may have been included. Yours sincerely, Hilton Rivas MD Coding Level of Care Code Est Pt Level 4 (72594) Diagnoses Nocturia R35.1 History of kidney stones Z87.442 Urinary frequency R35.0 CPT Codes Urodynamic Studies - CPT: 95992-Zzadbriligotwj w/ DECISION ANALYST ([id number]) Urodynamic Studies - CPT: 18086-Cqjwtvw-Ryixdkgiayzu First ([id number]) Urodynamic Studies - CPT: 19840-Zdos/Urinary Muscle Study ([id number]) Urodynamic Studies - CPT: 02466-Nxnvw-Qqvklvpfo Pressure Test ([id number])
== END 2023-12-05 10:11 | disposition home or self-care (01) ==
PROVIDERS: PCP Nurse Practitioner Primary Care; Visit Provider Urology
DX: R35.1 Nocturia (principal); Z87.442 Personal history of urinary calculi; R35.0 Frequency of micturition
CPT/HCPCS: 51728; 51741; 51784; 51797; 99214

== ENCOUNTER → 2023-12-05 08:12 | Outpatient (BNVA) | payer OTHER, SELFPAY | PROVIDERS: PCP Nurse Practitioner Primary Care; Visit Provider Urology | DX: R35.1 Nocturia (principal); R35.0 Frequency of micturition; Z87.442 Personal history of urinary calculi | CPT/HCPCS: 51728; 51741; 51784; 51797; 99212 ==

== ENCOUNTER 2023-12-22 08:28 | Outpatient (AMB) | payer OTHER, SELFPAY ==
--- NOTE | 2023-12-22 08:31 | MHC.PC.OV ---
Vital Signs 12/22/23 08:32 12/22/23 09:22 12/22/23 09:30 Height 6 ft Weight 191 lb BMI 25.9 BP 174/100 H 178/100 H 148/88 H Blood Pressure Location Lt brachial Rt brachial Rt brachial Position Sitting Sitting Sitting Pulse 57 Pulse Source Pulse Oximeter Pulse Oximetry (%) 98 Oxygen Delivery Method Room Air Intake Visit Reasons: Annual PE Intake Note: pt here for annual PE. Last colonoscopy 6 yrs ago in [facility]. ? has paperwork Allergies No Known Allergies Allergy (Verified 12/22/23 09:17) Medication List - Last Reconciled 12/22/23 by DAVID Bernardo solifenacin (Vesicare) 10 mg PO DAILY 30 days tamsulosin (Flomax) 0.4 mg PO BEDTIME vibegron (Gemtesa) 75 mg PO DAILY 30 days Tobacco use date assessed: 12/22/23 Fall risk assessment: No Falls in past year Last assessed Fall Risk: 12/22/23 Dental Screening Dental Screen Date: 12/22/23 Did you have a dental visit in the last 12 months?: Yes Did you have a dental problem in the last 6 months where you did not have access to dental care?: No Was dental information given to patient?: Patient has dentist HPI HPI Comments History of Present Illness Details This is a 63-year-old male in today for a physical exam. Patient's previous colonoscopy was performed 2020, with repeat in 5 years. Patient states he does not know when his last tetanus booster was believes it was longer than 10 years ago, will give today in office. Patient is up-to-date on PSA. Currently seeing Urology. Patient has up-to-date with shingles vaccine. [facility] Medical History Strain of left biceps Left rotator cuff tear Biceps muscle tear Hearing loss in right ear Surgical History S/P right rotator cuff repair H/O lateral meniscus repair of right knee Family History Brother S/P CABG x 4 Social History Housing: House Alcohol intake: current Comment: 1 to 2 drinks per week Patient Tobacco Use Status: Never used Tobacco e-Cigarette/Vaping Use: Never Used Second Hand Smoke Exposure: No service: No Current occupational status: retired Cognitive needs: No Hearing needs: No Vision needs: No Questionnaire PHQ-9 Over the last 2 weeks, how often have you been bothered by any of the following problems? 1. Little interest or pleasure in doing things: not at all 2. Feeling down, depressed, or hopeless: not at all 3. Trouble falling or staying asleep, or sleeping too much: not at all 4. Feeling tired or having little energy: not at all 5. Poor appetite or overeating: not at all 6. Feeling bad about yourself - or that you are a failure or have let yourself or your family down: not at all 7. Trouble concentrating on things, such as reading the newspaper or watching television: not at all 8. Moving or speaking so slowly that other people could have noticed. Or the opposite - being so fidgety or restless that you have been moving around a lot more than usual: not at all 9. Thoughts that you would be better off or of hurting yourself in some way: not at all Total score: 0 Depression Screening Interpretation: Negative Depression Screening Done: Yes 85134 - PHQ-9 Billing: Yes Source: Developed by Drs. Dionicio Marino, Ashley Alford, Mckinley Dominguez and colleagues, with an educational magda from [employer]. Thrive Questionnaire Date Thrive assessed: 12/22/23 I am a: Patient What is your living situation today?: I have a steady place to live Within the past 12 months, did the food you bought not last and you didn't have the money to get more?: Never true Within the past 12 months, did you worry whether your food would run out before you got money to buy more?: Never true Do you have trouble paying for medicines?: No Do you have trouble getting transportation to medical appointments?: No Do you have trouble paying your heating and electricity bill?: No Do you have trouble taking care of your child, family member or friend?: No Do you have trouble with day-to-day activities such as bathing, preparing meals, shopping, managing finances, etc.?: No Are you currently unemployed and looking for a job?: No Are you interested in more education?: No Please select the resources that you would like help with: None Currently or been in a relationship where the following occur: no concerns reported THRIVE Score: 0 AUDIT C Alcohol Use Questionnaire (AUDIT-C) 1. How often do you have a drink containing alcohol?: 4 or more times a week 2. How many drinks containing alcohol do you have on a typical day when you are drinking?: 1 or 2 3. How often do you have six or more drinks on one occasion?: Never Total Score: 4 Score Reviewed/Action Taken: Yes EVERETT-7 AMB Questionnaire EVERETT-7 Date EVERETT - 7 assessed: 08/15/23 Feeling nervous, anxious, or on edge: 0 = Not at all Not being able to stop or control worryin = Not at all Worrying too much about different things: 0 = Not at all Trouble relaxin = Not at all Being so restless that it is hard to sit still: 0 = Not at all Becoming easily annoyed or irritable: 0 = Not at all Feeling afraid as if something awful might happen: 0 = Not at all Total EVERETT-7 score (0-4 normal; 5-9 mild; 10-14 moderate; 15-21 severe): 0 Source: Developed by Drs. Dionicio Marino, Ashley Alford, Mckinley Dominguez and colleagues, with an educational magda from [employer]. EVERETT-7 Assessment Billing EVERETT-7 Assessment Tool: EVERETT-7 Assessment 52743 Review of Systems Const All systems reviewed & are unremarkable except as noted in HPI and below Physical exam (Primary Care) Vital Signs: Last Vital Signs Pulse 57 12/22/23 08:32 BP 178/100 H 12/22/23 09:22 Pulse Ox 98 12/22/23 08:32 Oxygen Delivery Method Room Air 12/22/23 08:32 Care Plan Goal for BP management: Patient started on losartan 25 mg p.o. daily Next steps: Blood pressure recheck in office in 2 weeks. BMI result Body Mass Index 25.9 Tobacco/Smoking Status: Tobacco use Status Tobacco use date assessed 12/22/23 12/22/23 08:39 Patient Tobacco Use Status Never used Tobacco 12/22/23 08:32 e-Cigarette/Vaping Use Never Used 12/22/23 08:32 PHQ-9: PHQ-9 Score PHQ-9: Total score 0 12/22/23 09:22 Depression Screening Interpretation: Negative Thrive Assessment: Date of Thrive Assessment Date Thrive assessed 12/22/23 12/22/23 08:42 Currently or been in a relationship where the following occur: no concerns reported Advance Care Planning discussion: Exists, not on file Const Other: Appearance: Alert.? Oriented X3.? No acute distress.? Head: Normocephalic. Eyes: Pupils equal, round and reactive to light.?EOMI. ENT: Pharynx normal.?TM intact and pearly treadwell. Neck: Normal inspection.? Neck supple.?Full ROM. CVS: Normal heart rate and rhythm.? Pulses normal.? Respiratory: No respiratory distress.? Breath sounds normal.? Abdomen: Soft and nontender.? Skin: Skin warm and dry.? Normal skin color.? Normal skin turgor.? Extremities: No lower extremity edema. 5/5 strength to bilateral upper and lower extremities Back: No midline tenderness, no C-spine tenderness, full range of motion, no CVA tenderness bilaterally Neuro: Oriented X 3.? No motor deficit.? No sensory deficit. CN 2-12 intact. No headache, No dizziness. Immunizations Boostrix Tdap 2.5 Lf unit-8 mcg-5 Lf/0.5 mL intramuscular syringe Performing Provider: DAVID Bernardo Performing Location: [facility] [place] [facility] Administered by: Jose Schmitt CMA on 12/22/23 09:24 Dose Route Admin Location Dispensed Lot Number Expiration Date NDC Collections Rep 0.5 mL IM Left Deltoid 0.5 mL [id number] 01/07/26 [id number] [employer] [employer] VIS Given Date VIS Provided VIS Publication Date 12/22/23 Single Vaccine 21 Eligibility Eligibility Date Funding Source Not [facility] Eligible 12/22/23 Private Assessment and Plan Assessment & Plan (1) Encounter for physical examination: Comment: Will draw CBC CMP. Patient will get Tdap vaccine today. Patient due for colonoscopy 2025. Will give patient HCP form to fill out bring back to office Code(s): Z00.00 - Encounter for general adult medical examination without abnormal findings (2) Nocturia: Comment: Has establish care with Urology. Code(s): R35.1 - Nocturia (3) Hypertension: Comment: Patient had blood pressure checked several times during today's a point appears to be hypertensive no symptoms of dizziness headache chest pain. Patient will be starting losartan 25 mg p.o. daily, will be asked to record blood pressure at home and will have blood pressure rechecked in office in 2 weeks. Code(s): I10 - Essential (primary) hypertension Qualifiers: Hypertension type: unspecified Qualified Code(s): I10 - Essential (primary) hypertension Plan: Patient has been educated on side effects and signs of worsening symptoms and when to report to the office or when to present to the ED Plan Follow-up in 2 weeks for blood pressure recheck Orders: Orders TDaP Immunization Today Z23 - Encounter for immunization Medications: New losartan 25 mg PO DAILY 30 tabs 0RF Coding Level of Care Code Est Pt Prev Care 40-64y(81091) Diagnoses Encounter for physical examination Z00.00 Nocturia R35.1 Hypertension, unspecified type I10 Hypertension type: unspecified Additional Codes EVERETT-7 Assessment Billing - EVERETT-7 Assessment Tool: EVERETT-7 Assessment 40949 ([id number]) Vital Signs *Quality* - Advance Care Planning discussion: Exists, not on file ([id number]) Time Spent (min) 31
[2023-12-22 08:32] VITALS: BP 174/100; PULSE 57; O2SAT 98; BMI 25.9
[2023-12-22 09:22] VITALS: BP 178/100
[2023-12-22 09:30] VITALS: BP 148/88
== END 2023-12-22 10:50 | disposition home or self-care (01) ==
PROVIDERS: Visit Provider Nurse Practitioner Primary Care
DX: Z23 Encounter for immunization (principal)
CPT/HCPCS: 1123F; 90471; 90715; 99396

== ENCOUNTER 2024-08-30 08:01 | Outpatient (REF) | payer OTHER, SELFPAY ==
[2024-08-30 10:03] LABS: MANUAL DIFF FLAG NO
[2024-08-30 10:05] LABS: Basophils Percent Auto 0.6 % (0-2); Eosinophils Absolute Auto 0.3 X10*3/uL (0.0-0.4); Eosinophils Percent Auto 5.3 % (0-4); Hematocrit 44.3 % (42.0-52.0); Hemoglobin 15.3 g/dl (14.0-18.0); Imm Gran Abs Auto 0.01 X10*3/uL (0.00-0.03); Imm Gran Pct Auto 0.2 % (0.0-0.4); Lymphocytes Absolute Auto 1.3 X10*3/uL (1.2-4.9); Lymphocytes Percent Auto 27.9 % (20-40); Mean Corpuscular HGB Conc 34.5 g/dl (31.0-36.0); Mean Corpuscular Hemoglobin 31.5 pg (27.0-33.0); Mean Corpuscular Volume 91.3 fL (80.0-98.0); Mean Platelet Volume 9.7 fL (9.4-12.4); Monocytes Absolute Auto 0.3 X10*3/uL (0.1-1.2); Monocytes Percent Auto 7.2 % (2-11); Neutrophils Absolute Auto 2.8 x10*3/uL (2.0-8.3); Neutrophils Percent Auto 58.8 % (45-73); Platelet Count 249 X10*3/uL (160-400); Red Blood Count 4.85 X10*6/uL (4.60-5.80); Red Cell Distribution Width 12.1 % (11.0-16.0); White Blood Count 4.7 X10*3/uL (4.8-10.8)
[2024-08-30 10:14] LABS: Appearance Urine Clear; Color Urine Yellow; Glucose Urine UA Negative (Negative); Leukocyte Esterase Urine Negative (Negative); Nitrite Urine Negative (Negative); PH 5.5 (5.0-9.0); Specific Gravity - Urine 1.025 (1.005-1.025); Urine Blood Negative (Negative); Urine Ketones Negative (Negative); Urine Protein Negative (Neg-Trace)
[2024-08-30 10:18] LABS: Bacteria Urine None Seen (None Seen); Hyaline Casts Urine 0-2 /LPF (0-2); RBC Urine 0-2 /HPF (0-2); Squamous Epithelial Cell Urine 0-2 /HPF (0-2); WBC Urine 0-5 /HPF (0-5)
[2024-08-30 10:44] LABS: PSA,Total (Free>4and<10) 0.82 ng/mL (0.00-4.00)
[2024-08-30 10:45] LABS: Alanine Aminotransferase 14 U/L (0-40); Albumin Level 4.2 g/dL (3.5-5.0); Alkaline Phosphatase 55 U/L (39-117); Anion Gap 9 (12-20); Aspartate Amino Transferase 26 U/L (5-37); Bilirubin Total 0.7 mg/dL (0.0-1.0); Blood Urea Nitrogen 22 mg/dL (9-16); Calcium 9.3 mg/dL (8.4-10.2); Carbon Dioxide 27 mmol/L (22-29); Chloride 107 mmol/L (96-108); Cholesterol 189 mg/dL (<200); Estimated Glomerular Filt Rate > 60; Glucose Fasting 100 mg/dL (60-99); HDL Cholesterol 53 mg/dL (>40); LDL Cholesterol Calculated 128 mg/dL (<100); Potassium 4.2 mmol/L (3.3-5.1); Sodium 139 mmol/L (135-145); Total Protein 7.7 g/dL (6.5-8.0); Triglycerides 43 mg/dL (<150)
[2024-08-30 10:48] LABS: Vitamin D 25-OH Total 51.3 ng/mL (>30)
== END 2024-08-30 08:02 | disposition home or self-care (01) ==
LOC: HO.HMGCLDS 08:01
PROVIDERS: PCP Internal Medicine; Visit Provider Internal Medicine
DX: Z00.00 Encounter for general adult medical examination without abnormal findings (principal); Z12.5 Encounter for screening for malignant neoplasm of prostate; I10 Essential (primary) hypertension; E55.9 Vitamin D deficiency, unspecified; R35.0 Frequency of micturition; D23.9 Other benign neoplasm of skin, unspecified
CPT/HCPCS: 36415; 80053; 80061; 81001; 82306; 84153; 85025; 96127; 99396

== ENCOUNTER 2024-08-30 08:01 | Outpatient (AMB) | payer OTHER, SELFPAY ==
--- NOTE | 2024-08-30 08:03 | MHC.PC.OV ---
Vital Signs 08/30/24 08:04 Height 6 ft Weight 186 lb BMI 25.2 BP 136/80 Blood Pressure Location Lt brachial Position Sitting Respiration 16 Pulse 70 Pulse Source Pulse Oximeter Temp 98.1 F Temp Source Oral Pulse Oximetry (%) 98 Oxygen Delivery Method Room Air Intake Visit Reasons: Follow up Transfer from [facility] Note: Pt is here today transfer from [facility] Allergies No Known Allergies Allergy (Verified 08/30/24 08:05) Medication List - Last Reconciled 08/30/24 by Pattie Sierra MD losartan 50 mg PO DAILY Tobacco use date assessed: 08/30/24 Dental Screening Dental Screen Date: 08/30/24 Did you have a dental visit in the last 12 months?: Yes Did you have a dental problem in the last 6 months where you did not have access to dental care?: No Was dental information given to patient?: Patient has dentist HPI Follow up Transfer from [facility] Details Pt presents for PE. [facility] Medical History (Updated 08/30/24 @ 08:58 by Pattie Sierra MD) Strain of left biceps Left rotator cuff tear Biceps muscle tear Hearing loss in right ear Surgical History (Updated 08/30/24 @ 08:31 by Pattie Sierra MD) S/P right rotator cuff repair H/O lateral meniscus repair of right knee Family History (Updated 08/30/24 @ 08:53 by Pattie Sierra MD) Brother S/P CABG x 4, Onset Age: 50 Brother Colon polyps Social History (Updated 08/30/24 @ 08:56 by Pattie Sierra MD) Household Members Other:: , retired, plays golf, no children, worked for [employer] 40 yrs Housing: House Alcohol intake: current Comment: 1 to 2 drinks per week Patient Tobacco Use Status: Never used Tobacco e-Cigarette/Vaping Use: Never Used Second Hand Smoke Exposure: No service: No Current occupational status: retired Cognitive needs: No Hearing needs: No Vision needs: Yes Questionnaire PHQ-9 Over the last 2 weeks, how often have you been bothered by any of the following problems? 1. Little interest or pleasure in doing things: not at all 2. Feeling down, depressed, or hopeless: not at all 3. Trouble falling or staying asleep, or sleeping too much: not at all 4. Feeling tired or having little energy: not at all 5. Poor appetite or overeating: not at all 6. Feeling bad about yourself - or that you are a failure or have let yourself or your family down: not at all 7. Trouble concentrating on things, such as reading the newspaper or watching television: not at all 8. Moving or speaking so slowly that other people could have noticed. Or the opposite - being so fidgety or restless that you have been moving around a lot more than usual: not at all 9. Thoughts that you would be better off or of hurting yourself in some way: not at all Total score: 0 Depression Screening Interpretation: Negative Depression Screening Done: Yes 90680 - PHQ-9 Billing: Yes Source: Developed by Drs. Dionicio Marino, Ashley Alford, Mckinley Dominguez and colleagues, with an educational magda from [employer]. Thrive Questionnaire Date Thrive assessed: 08/23/24 I am a: Patient What is your living situation today?: I have a steady place to live Within the past 12 months, did the food you bought not last and you didn't have the money to get more?: Never true Within the past 12 months, did you worry whether your food would run out before you got money to buy more?: Never true Do you have trouble paying for medicines?: No Do you have trouble getting transportation to medical appointments?: No Do you have trouble paying your heating and electricity bill?: No Do you have trouble taking care of your child, family member or friend?: No Do you have trouble with day-to-day activities such as bathing, preparing meals, shopping, managing finances, etc.?: No Are you currently unemployed and looking for a job?: No Are you interested in more education?: No Please select the resources that you would like help with: None Currently or been in a relationship where the following occur: No concerns reported THRIVE Score: 0 AUDIT C Alcohol Use Questionnaire (AUDIT-C) 1. How often do you have a drink containing alcohol?: 2-3 times a week 2. How many drinks containing alcohol do you have on a typical day when you are drinking?: 1 or 2 3. How often do you have six or more drinks on one occasion?: Never Total Score: 3 EVERETT-7 AMB Questionnaire EVERETT-7 Date EVERETT - 7 assessed: 08/30/24 Feeling nervous, anxious, or on edge: 0 = Not at all Not being able to stop or control worryin = Not at all Worrying too much about different things: 0 = Not at all Trouble relaxin = Not at all Being so restless that it is hard to sit still: 0 = Not at all Becoming easily annoyed or irritable: 0 = Not at all Feeling afraid as if something awful might happen: 0 = Not at all Total EVERETT-7 score (0-4 normal; 5-9 mild; 10-14 moderate; 15-21 severe): 0 Source: Developed by Drs. Dionicio Marino, Ashley Alford, Mckinley Dominguez and colleagues, with an educational magda from [employer]. Review of Systems Const All systems reviewed & are unremarkable except as noted in HPI and below Reports no additional complaints Eyes Reports no additional complaints ENT Reports no additional complaints Card Reports no additional complaints Resp Reports no additional complaints GI Reports no additional complaints Reports no additional complaints Physical exam (Primary Care) Vital Signs: Last Vital Signs Temp 98.1 F 08/30/24 08:04 Pulse 70 08/30/24 08:04 Resp 16 08/30/24 08:04 BP 136/80 08/30/24 08:04 Pulse Ox 98 08/30/24 08:04 Oxygen Delivery Method Room Air 08/30/24 08:04 BMI result Body Mass Index 25.2 Tobacco/Smoking Status: Tobacco use Status Tobacco use date assessed 08/30/24 08/30/24 08:09 Patient Tobacco Use Status Never used Tobacco 08/30/24 08:09 e-Cigarette/Vaping Use Never Used 08/30/24 08:09 PHQ-9: PHQ-9 Score PHQ-9: Total score 0 08/30/24 08:09 Depression Screening Interpretation: Negative Thrive Assessment: Date of Thrive Assessment Date Thrive assessed 08/23/24 08/30/24 08:09 Currently or been in a relationship where the following occur: No concerns reported Const General: no acute distress HENMT Head: Yes normal to inspection Ears: hearing grossly normal bilaterally General nose exam: Normal external nose present Face and sinus: Yes normal facial exam Throat: Yes posterior oropharynx normal Eyes General: appearance normal, both eyes and all related structures Neck Neck: Yes no lymphadenopathy and Yes supple Resp Effort & Inspection: normal respiratory effort Auscultation: clear to auscultation bilaterally Cardio Rhythm: regular rhythm Heart sounds: S1 normal heart sound present and S2 normal heart sound present GI Inspection: Yes normal to inspection Palpation (GI): Soft to palpation Percussion: Yes normal to percussion Auscultation: normal bowel sounds Skin Other: Dysplastic nevus with irregular borders and color on the left torso Extrem General: Yes no clubbing, cyanosis or edema Coding Level of Care Code Est Pt Prev Care 40-64y(34028) Diagnoses Hypertension, unspecified type I10 Hypertension type: unspecified Annual physical exam Z00. Vitamin D deficiency E55.9 Dysplastic nevus D23.9 Urinary frequency R35.0 Additional Codes PHQ-9 - 81857 - PHQ-9 Billing: Yes ([id number]) Assessment & Plan Assessment & Plan (1) Hypertension: Code(s): I10 - Essential (primary) hypertension Category: Medical Qualifiers: Hypertension type: unspecified Qualified Code(s): I10 - Essential (primary) hypertension Plan: Increase losartan to 50 mg a day, low-sodium diet, regular physical activity discussed with the patient. Follow-up in 1 month (2) Annual physical exam: Code(s): Z00.00 - Encounter for general adult medical examination without abnormal findings Category: Medical Plan: Well-balanced diet regular physical activity discussed with the patient he is due for repeat colonoscopy next April (3) Vitamin D deficiency: Code(s): E55.9 - Vitamin D deficiency, unspecified Category: Medical Plan: Vitamin-D supplement discussed (4) Dysplastic nevus: Comment: torso Code(s): D23.9 - Other benign neoplasm of skin, unspecified Category: Medical Plan: Referred to dermatology (5) Urinary frequency: Comment: Extensive workup by Urology in [facility] tried multiple medications unsuccessfully Code(s): R35.0 - Frequency of micturition Category: Medical Plan: Check PSA and UA Orders: Orders Comprehensive [place]. Panel Fast Today I10 - Essential (primary) hypertension, Z00.00 - Encounter for general adult medical examination without abnormal findings Lipid Panel Today I10 - Essential (primary) hypertension, Z00.00 - Encounter for general adult medical examination without abnormal findings UA w Microscopic Today I10 - Essential (primary) hypertension, Z00.00 - Encounter for general adult medical examination without abnormal findings Complete Blood Count Auto Diff Today I10 - Essential (primary) hypertension, Z00.00 - Encounter for general adult medical examination without abnormal findings PSA,Total (Free>4and<10) Today I10 - Essential (primary) hypertension, R35.0 - Frequency of micturition, Z00.00 - Encounter for general adult medical examination without abnormal findings Vitamin D 25-OH Total Today E55.9 - Vitamin D deficiency, unspecified Referrals Dermatology Referral D23.9 - Other benign neoplasm of skin, unspecified Medications: New losartan 50 mg PO DAILY 90 tabs 0RF Discontinued losartan Discontinued Reason: Doctor's Order 25 mg PO DAILY 90 tabs 0RF
[2024-08-30 08:04] VITALS: BP 136/80; PULSE 70; RESP 16; TEMP 36.7; O2SAT 98; BMI 25.2
== END 2024-08-30 09:02 | disposition home or self-care (01) ==
PROVIDERS: PCP Internal Medicine; Visit Provider Internal Medicine
DX: I10 Essential (primary) hypertension (principal); Z00.00 Encounter for general adult medical examination without abnormal findings; E55.9 Vitamin D deficiency, unspecified; D23.9 Other benign neoplasm of skin, unspecified; R35.0 Frequency of micturition

== ENCOUNTER 2024-10-03 19:39 | Emergency (ER) | payer OTHER, SELFPAY ==
[2024-10-03 19:48] VITALS: BP 194/92; PULSE 65; RESP 18; TEMP 36.5; O2SAT 98; BMI 27.2
--- NOTE | 2024-10-03 19:48 | ED_ITS ---
HPI - Male Genitourinary General Chief complaint: Urogenital-Male Stated complaint: unable to urinate/pain Time Seen by Provider: 10/03/24 20:51 Source: patient, RN notes reviewed and old records reviewed Mode of arrival: ambulatory Limitations: no limitations History of Present Illness ED Provider: Genny SAUNDERS Narrative: 63-year-old male with past medical history significant for hypertension presents for evaluation of inability to urinate. Patient reports for the last 3 hours he has not been able to pee. He reports that this happened once about 15 years ago. He reports that he actually saw Urology, Dr. Griffin benitez about 6 months ago due to frequent nocturnal urination He was told that everything looked okay The patient denies any flank pain, blood in the urine but he did have some mild burning with urination earlier In his bladder scan shortly after triage and had 550 cc of bladder Related Data Previous Rx's ?Medication ?Instructions ?Recorded losartan 50 mg tablet 50 mg PO DAILY #90 tabs 08/30/24 Allergies Allergy/AdvReac Type Severity Reaction Status Date / Time No Known Allergies Allergy Verified 10/03/24 19:49 Review of Systems 2 Constitutional: Constitutional: Denies body ache(s), Denies chills, Denies fever(s) and Denies headache(s) ENT: Denies headache(s) Gastrointestinal: Gastrointestinal: Reports abdominal pain, Denies nausea and Denies vomiting Genitourinary: Genitourinary: Reports difficulty urinating, Denies penile discharge, Denies scrotal swelling, Denies testicular mass, Denies testicular pain and Reports urinary urgency Integumentary/Breasts: Skin/Breast: Denies rash Neurologic: Denies headache(s) [facility] Past Medical History Medical History (Updated 10/03/24 @ 21:14 by Daniel Royal) Strain of left biceps Left rotator cuff tear Biceps muscle tear Hearing loss in right ear Surgical History (Updated 08/30/24 @ 08:31 by Pattie Sierra MD) S/P right rotator cuff repair H/O lateral meniscus repair of right knee Family History Family History (Updated 08/30/24 @ 08:53 by Pattie Sierra MD) Brother S/P CABG x 4, Onset Age: 50 Brother Colon polyps Social History Social History (Updated 08/30/24 @ 08:56 by Pattie Sierra MD) Household Members Other:: , retired, plays golf, no children, 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 Housing: House Alcohol intake: current Comment: 1 to 2 drinks per week Patient Tobacco Use Status: Never used Tobacco e-Cigarette/Vaping Use: Never Used Second Hand Smoke Exposure: No Advance Directives: No Advance Directives Information Provided: Yes Do you have a plan to hurt others: No Plan service: No Current occupational status: retired Cognitive needs: No Hearing needs: No Vision needs: Yes Physical Exam 2 Vital Signs: Vital Signs: Last Vital Signs Temp 98.5 F 10/03/24 22:03 Pulse 72 10/03/24 22:03 Resp 18 10/03/24 22:03 BP 175/95 H 10/03/24 22:03 Pulse Ox 97 10/03/24 22:03 O2 Del Method Room Air 10/03/24 22:03 BMI result Body Mass Index 27.2 Const: General: healthy appearing, comfortable, no acute distress, alert and awake Nutritional Appearance: well nourished Orientation/consciousness: p atient oriented x3 HEENT: Head: Yes normocephalic and Yes atraumatic Eyes: Eyelids: Yes eyelids normal Conjunctivae: conjunctivae normal S clerae: sclerae normal Corneas: corneas normal Pupils: Equal, round and reactive pupils present EOM: EOMs intact bilaterally Neck: Neck: Yes full ROM Resp: Effort & Inspection: normal respiratory effort, able to speak in complete sentences and not labored GI: Inspection: No distended Palpation (GI): Soft to palpation, not firm, nontender, no guarding and not rigid Auscultation: normoactive bowel sounds Skin: General skin exam: elasticity normal Neuro: General: patient oriented x3 Cranial nerves: Yes Equal, round and reactive pupils present and Yes Bilaterally intact EOM present Cognition (Neuro): normal cognition Course Course Course Narrative: This is a Rapid Medical Examination (RME) performed by Haris Avendaño PA-C in triage. Full HPI, ROS, assessment and treatment plan per primary provider in the Main ED. 63 yo male presents to the ER for evaluation of acute urinary retention that started 1 hour ago. burning when trying to urinate. hx nocturia 10x per night. thinks he had prostate issues years ago, trialed on flomax in the past. would prefer not going home with a catheter today. bladder scanned for >500. very hypertensive in triage, likely due to acute retention and discomfort Plan: straight cath, labs, UA Medical Decision Making Medical Decision Making [facility] Narrative: 63-year-old male presents for evaluation of acute urinary retention. His labs are reassuring, he is not in renal failure, urinalysis does not show evidence of hematuria or infection. The patient had a straight cath order completed in triage and drained 550 cc of clear, yellow urine. I discussed treatment options with the patient. He was given the option of waiting to see if you be able to urinate, getting a Root catheter which I recommended and the patient ultimately agreed to have a Root catheter placed and he will follow up with his urologist Differential Diagnosis Differential Diagnoses: The differential diagnosis associated with the presentation includes Cystitis Obstructive uropathy BPH Urinary retention Lab Data [facility] Lab Attestation statement: I reviewed the patient's lab results. Leukocytosis or anemia. Normal platelet count. No significant electrolyte abnormalities. 10/03/24 20:06 10/03/24 20:06 Labs: Lab Results 10/03/24 Range/Units 20:06 WBC 6.1 (4.8-10.8) X10*3/uL RBC 4.83 (4.60-5.80) X10*6/uL Hgb 15.2 (14.0-18.0) g/dl Hct 43.2 (42.0-52.0) % MCV 89.4 (80.0-98.0) fL MCH 31.5 (27.0-33.0) pg MCHC 35.2 (31.0-36.0) g/dl RDW 11.9 (11.0-16.0) % Plt Count 265 (160-400) X10*3/uL MPV 9.4 (9.4-12.4) fL Immature Gran % (Auto) 0.2 (0.0-0.4) % Neut % (Auto) 60.9 (45-73) % Lymph % (Auto) 28.2 (20-40) % [place] % (Auto) 6.6 (2-11) % Eos % (Auto) 3.4 (0-4) % Baso % (Auto) 0.7 (0-2) % Lymph # (Auto) 1.7 (1.2-4.9) X10*3/uL [place] # (Auto) 0.4 (0.1-1.2) X10*3/uL Eos # (Auto) 0.2 (0.0-0.4) X10*3/uL Baso # (Auto) 0.0 (0.0-0.2) X10*3/uL Abs Immat Gran (auto) 0.01 (0.00-0.03) X10*3/uL Absolute Neuts (auto) 3.7 (2.0-8.3) x10*3/uL Absolute Nucleated RBC 0.000 (0.0-0.012) X10*3/uL Nucleated RBC % (auto) 0.0 (0.0-0.2) /100WBC Sodium 141 (135-145) mmol/L Potassium 4.0 (3.3-5.1) mmol/L Chloride 107 (96-108) mmol/L Carbon Dioxide 25 (22-29) mmol/L Anion Gap 13 (12-20) BUN 17 H (9-16) mg/dL Creatinine 1.10 (0.5-1.4) mg/dL Estim Creat Clear Calc 74.4 Estimated GFR > 60 Random Glucose 89 (60-115) mg/dL Calcium 9.1 (8.4-10.2) mg/dL Magnesium 2.0 (1.6-2.6) mg/dL Total Bilirubin 0.7 (0.0-1.0) mg/dL Direct Bilirubin 0.2 (0.0-0.5) mg/dL AST 26 (5-37) U/L ALT 16 (0-40) U/L Alkaline Phosphatase 53 (39-117) U/L Total Protein 7.8 (6.5-8.0) g/dL Albumin 4.3 (3.5-5.0) g/dL Urine Color Yellow Urine Appearance Clear Urine pH 6.0 (5.0-9.0) Ur Specific [place] <= 1.005 (1.005-1.025) Urine Protein Negative (Neg-Trace) mg/dL Urine Glucose (UA) Negative (Negative) mg/dL Urine Ketones Negative (Negative) mg/dL Urine Blood Negative (Negative) Urine Nitrite Negative (Negative) Ur Leukocyte Esterase Negative (Negative) Discharge Plan Discharge Clinical Impression: Acute urinary retention Patient Disposition: Home, Self-Care Instructions: Urinary Retention in Men (ED), Root Catheter Placement and Care (ED) Additional Instructions: Your blood work today was reassuring, your urinalysis was clear, no evidence of blood or infection. Call urology office tomorrow to schedule follow up appointment Prescriptions: No Action losartan 50 mg tablet 50 mg PO DAILY Qty: 90 0RF Referrals: Hilton Rivas MD [Physician] - (urinary retention) Interventions: ED Discharge Assessment Last Done: 10/03/24 22:03 Discharge Date/Time: 10/03/24 22:04 Print Language: Citizen Of [place]
[2024-10-03 20:12] LABS: MANUAL DIFF FLAG NO
[2024-10-03 20:13] LABS: Appearance Urine Clear; Basophils Percent Auto 0.7 % (0-2); Color Urine Yellow; Eosinophils Absolute Auto 0.2 X10*3/uL (0.0-0.4); Eosinophils Percent Auto 3.4 % (0-4); Glucose Urine UA Negative (Negative); Hematocrit 43.2 % (42.0-52.0); Hemoglobin 15.2 g/dl (14.0-18.0); Imm Gran Abs Auto 0.01 X10*3/uL (0.00-0.03); Imm Gran Pct Auto 0.2 % (0.0-0.4); Leukocyte Esterase Urine Negative (Negative); Lymphocytes Absolute Auto 1.7 X10*3/uL (1.2-4.9); Lymphocytes Percent Auto 28.2 % (20-40); Mean Corpuscular HGB Conc 35.2 g/dl (31.0-36.0); Mean Corpuscular Hemoglobin 31.5 pg (27.0-33.0); Mean Corpuscular Volume 89.4 fL (80.0-98.0); Mean Platelet Volume 9.4 fL (9.4-12.4); Monocytes Absolute Auto 0.4 X10*3/uL (0.1-1.2); Monocytes Percent Auto 6.6 % (2-11); Neutrophils Absolute Auto 3.7 x10*3/uL (2.0-8.3); Neutrophils Percent Auto 60.9 % (45-73); Nitrite Urine Negative (Negative); Platelet Count 265 X10*3/uL (160-400); Red Blood Count 4.83 X10*6/uL (4.60-5.80); Red Cell Distribution Width 11.9 % (11.0-16.0); Specific Gravity - Urine <= 1.005 (1.005-1.025); Urine Blood Negative (Negative); Urine Ketones Negative (Negative); Urine Protein Negative (Neg-Trace); White Blood Count 6.1 X10*3/uL (4.8-10.8)
[2024-10-03 20:28] LABS: Alanine Aminotransferase 16 U/L (0-40); Albumin Level 4.3 g/dL (3.5-5.0); Alkaline Phosphatase 53 U/L (39-117); Anion Gap 13 (12-20); Aspartate Amino Transferase 26 U/L (5-37); Bilirubin Direct 0.2 mg/dL (0.0-0.5); Bilirubin Total 0.7 mg/dL (0.0-1.0); Blood Urea Nitrogen 17 mg/dL (9-16); Calcium 9.1 mg/dL (8.4-10.2); Carbon Dioxide 25 mmol/L (22-29); Chloride 107 mmol/L (96-108); Creatinine Clr Calc Pharmacy 74.4; Estimated Glomerular Filt Rate > 60; Glucose Random 89 mg/dL (60-115); Sodium 141 mmol/L (135-145); Total Protein 7.8 g/dL (6.5-8.0)
[2024-10-03 21:57] VITALS: BP 175/95; PULSE 72; RESP 18; TEMP 36.9; O2SAT 97
[2024-10-03 22:03] VITALS: BP 175/95; PULSE 72; RESP 18; TEMP 36.9; O2SAT 97
== END 2024-10-03 22:04 | disposition home or self-care (01) ==
PROVIDERS: Physician Assistant; Emergency Provider Emergency Medicine; PCP Internal Medicine
DX: R33.8 Other retention of urine (principal); I10 Essential (primary) hypertension; Z79.899 Other long term (current) drug therapy
CPT/HCPCS: 36415; 51701; 51798; 80048; 80076; 81003; 83735; 85025; 99283; 99284

== ENCOUNTER 2024-10-06 08:56 | Outpatient (AMB) | payer OTHER, SELFPAY ==
[2024-10-06 08:57] VITALS: BP 140/86; PULSE 63; RESP 18; TEMP 36.5; O2SAT 99; BMI 26.0
--- NOTE | 2024-10-06 08:57 | A.OFFPC_ITS ---
Vital Signs 10/06/24 08:57 Height 6 ft Weight 192 lb BMI 26.0 BP 140/86 H Blood Pressure Location Lt brachial Position Sitting Respiration 18 Pulse 63 Pulse Source Pulse Oximeter Temp 97.7 F Temp Source Oral Pulse Oximetry (%) 99 Oxygen Delivery Method Room Air Intake Visit Reasons: 1m follow up Intake Note: Pt is here today for 1 months follow up visit. Allergies No Known Allergies Allergy (Verified 10/06/24 09:03) Medication List - Last Reconciled 10/06/24 by Pattie Sierra MD losartan 100 mg (2 x 50 mg) PO DAILY tamsulosin (Flomax) 0.4 mg PO BEDTIME Tobacco use date assessed: 10/06/24 Fall risk assessment: No Falls in past year Last assessed Fall Risk: 10/06/24 Dental Screening Dental Screen Date: 08/30/24 HPI 1m follow up HPI Details Pt presents for f/u HTN. Pt was seen in ER 3 days ago for acute urinary retention and bladder catheter was placed. The patient was evaluated by Urology and was advised to keep a catheter in place for 2 weeks. He has an appointment in 3 days for trial of voiding after the catheter is removed. Patient has not been taking any medications for BPH for a few years. [facility] Medical History Strain of left biceps Left rotator cuff tear Biceps muscle tear Hearing loss in right ear Surgical History S/P right rotator cuff repair H/O lateral meniscus repair of right knee Family History Brother S/P CABG x 4, Onset Age: 50 Brother Colon polyps Social History Household Members Other:: , retired, plays golf, no children, worked for [employer] 40 yrs Housing: House Alcohol intake: current Comment: 1 to 2 drinks per week Patient Tobacco Use Status: Never used Tobacco e-Cigarette/Vaping Use: Never Used Second Hand Smoke Exposure: No service: No Current occupational status: retired Cognitive needs: No Hearing needs: No Vision needs: Yes Questionnaire Thrive Questionnaire Date Thrive assessed: 08/23/24 I am a: Patient What is your living situation today?: I have a steady place to live Within the past 12 months, did the food you bought not last and you didn't have the money to get more?: Never true Within the past 12 months, did you worry whether your food would run out before you got money to buy more?: Never true Do you have trouble paying for medicines?: No Do you have trouble getting transportation to medical appointments?: No Do you have trouble paying your heating and electricity bill?: No Do you have trouble taking care of your child, family member or friend?: No Do you have trouble with day-to-day activities such as bathing, preparing meals, shopping, managing finances, etc.?: No Are you currently unemployed and looking for a job?: No Are you interested in more education?: No Please select the resources that you would like help with: None Currently or been in a relationship where the following occur: No concerns reported THRIVE Score: 0 EVERETT-7 AMB Questionnaire EVERETT-7 Date EVERETT - 7 assessed: 08/30/24 Source: Developed by Drs. Dionicio Marino, Ashley Alford, Mckinley Dominguez and colleagues, with an educational magda from [employer]. Review of Systems Const All systems reviewed & are unremarkable except as noted in HPI and below Eyes Reports no additional complaints ENT Reports no additional complaints Card Reports no additional complaints Resp Reports no additional complaints GI Reports no additional complaints Reports no additional complaints Physical exam (Primary Care) Vital Signs: Last Vital Signs Temp 97.7 F 10/06/24 08:57 Pulse 63 10/06/24 08:57 Resp 18 10/06/24 08:57 BP 140/86 H 10/06/24 08:57 Pulse Ox 99 10/06/24 08:57 Oxygen Delivery Method Room Air 10/06/24 08:57 BMI result Body Mass Index 26.0 Tobacco/Smoking Status: Tobacco use Status Tobacco use date assessed 10/06/24 10/06/24 09:07 Patient Tobacco Use Status Never used Tobacco 10/06/24 08:58 e-Cigarette/Vaping Use Never Used 10/06/24 08:58 Thrive Assessment: Date of Thrive Assessment Date Thrive assessed 08/23/24 10/06/24 08:58 Currently or been in a relationship where the following occur: No concerns reported Const General: no acute distress HENMT Head: Yes normal to inspection Throat: Yes posterior oropharynx normal Neck Neck: Yes supple Resp Effort & Inspection: normal respiratory effort Auscultation: clear to auscultation bilaterally Cardio Rhythm: regular rhythm Heart sounds: S1 normal heart sound present and S2 normal heart sound present GI Inspection: Yes normal to inspection Palpation (GI): Soft to palpation Percussion: Yes normal to percussion Auscultation: normal bowel sounds Coding Level of Care Code Est Pt Level 4 (36098) Diagnoses Acute urinary retention R33.8 BPH (benign prostatic hyperplasia) N40.0 Hypertension, unspecified type I10 Hypertension type: unspecified Assessment & Plan Assessment & Plan (1) Acute urinary retention: Code(s): R33.8 - Other retention of urine Category: Medical Plan: Patient follow-up with Urology in 3 days. Tamsulosin will be started. Renal ultrasound will be obtained to rule out hydronephrosis or nephrolithiasis (2) BPH (benign prostatic hyperplasia): Code(s): N40.0 - Benign prostatic hyperplasia without lower urinary tract symptoms Category: Medical Plan: As above start tamsulosin and follow-up with Urology (3) Hypertension: Code(s): I10 - Essential (primary) hypertension Category: Medical Qualifiers: Hypertension type: unspecified Qualified Code(s): I10 - Essential (primary) hypertension Plan: Increase losartan to 100 mg a day follow-up in 1 month Orders: Orders US renal BI Today N20.0 - Calculus of kidney, N40.0 - Benign prostatic hyperplasia without lower urinary tract symptoms, R33.8 - Other retention of urine Referrals Urology Referral N20.0 - Calculus of kidney, N40.0 - Benign prostatic hyperplasia without lower urinary tract symptoms, R33.8 - Other retention of urine Medications: New tamsulosin (Flomax) 0.4 mg PO BEDTIME 90 caps 0RF Changed From losartan 50 mg PO DAILY 90 tabs 0RF To losartan 100 mg (2 x 50 mg) PO DAILY 90 tabs 0RF
== END 2024-10-06 10:00 | disposition home or self-care (01) ==
LOC: HO.HMCC 08:57
PROVIDERS: PCP Internal Medicine; Visit Provider Internal Medicine
DX: R33.8 Other retention of urine (principal); N40.0 Benign prostatic hyperplasia without lower urinary tract symptoms; I10 Essential (primary) hypertension

== ENCOUNTER 2024-10-06 12:38 | Outpatient (REF) | payer OTHER, SELFPAY ==
--- NOTE | ~2024-10-06 | US_ITS ---
EXAMINATION: US KIDNEY BILATERAL HISTORY: N40.0 - Benign prostatic hyperplasia, calculus of kidney TECHNIQUE: Real-time grayscale ultrasound imaging of the kidneys was performed and images were reviewed. COMPARISON: Comparison is made with the prior examination dated 11/11/2023. FINDINGS: Right kidney: The right kidney measures 10.2 x 4.9 x 5.4 cm. Renal parenchymal echotexture and thickness are normal. There are no masses. There is no hydronephrosis or renal calculi. Left Kidney: The left kidney measures 11.1 x 6.7 x 5.4 cm. Renal parenchymal echotexture and thickness are normal. There are no masses. There is no hydronephrosis or renal calculi. US/US renal BI IMPRESSION: Unremarkable renal ultrasound. Electronically signed by: Dionicio Jensen MD 10/06/2024 01:21 PM EDT
== END 2024-10-06 12:39 | disposition home or self-care (01) ==
LOC: HO.US 12:38
PROVIDERS: Visit Provider Internal Medicine
DX: N40.0 Benign prostatic hyperplasia without lower urinary tract symptoms (principal); N20.0 Calculus of kidney; R33.8 Other retention of urine
CPT/HCPCS: 76775; 99212

== ENCOUNTER → 2024-10-06 12:40 | Outpatient (BNV) | payer OTHER, SELFPAY | PROVIDERS: Visit Provider Radiology Diagnostic Radiology | DX: N40.0 Benign prostatic hyperplasia without lower urinary tract symptoms (principal) | CPT/HCPCS: 76775 ==

== ENCOUNTER 2024-10-07 17:59 | Emergency (ER) | payer OTHER, SELFPAY ==
[2024-10-07 18:45] VITALS: BP 171/83; PULSE 76; RESP 16; TEMP 36.7; O2SAT 96; BMI 25.8
--- NOTE | 2024-10-07 18:45 | ED_ITS ---
HPI - Male Genitourinary General Chief complaint: Urogenital-Male Stated complaint: clogged catheter Time Seen by Provider: 10/07/24 22:42 Source: patient Mode of arrival: ambulatory Limitations: no limitations History of Present Illness ED Provider: HPI Narrative: Patient's history of BPH status post Root catheter placed on 10/03 for acute urinary retention on Flomax since yesterday comes here as having the feeling that he is not emptying the bladder with lower abdominal discomfort after arrival in the ER patient is able to urinate more bladder scan showed only 25 cc the urine no fever no chills no nausea no vomiting Related Data Previous Rx's ?Medication ?Instructions ?Recorded losartan 50 mg tablet 100 mg (2 x 50 mg) PO DAILY #90 10/06/24 tabs tamsulosin 0.4 mg capsule (Flomax) 0.4 mg PO BEDTIME #90 caps 10/06/24 cefuroxime axetil 500 mg tablet 500 mg PO BID 7 days #14 tabs 10/08/24 phenazopyridine 200 mg tablet 200 mg PO TID 2 days #6 tabs 10/08/24 (Pyridium) Allergies Allergy/AdvReac Type Severity Reaction Status Date / Time No Known Allergies Allergy Verified 10/07/24 18:47 Review of Systems 2 Review of Systems: Yes all other systems are reviewed and are negative PMFSH Past Medical History Medical History Strain of left biceps Left rotator cuff tear Biceps muscle tear Hearing loss in right ear Surgical History S/P right rotator cuff repair H/O lateral meniscus repair of right knee Family History Family History Brother S/P CABG x 4, Onset Age: 50 Brother Colon polyps Social History Social History Household Members Other:: , retired, plays golf, no children, worked for [employer] 40 yrs Housing: House Alcohol intake: current Comment: 1 to 2 drinks per week Patient Tobacco Use Status: Never used Tobacco e-Cigarette/Vaping Use: Never Used Second Hand Smoke Exposure: No Advance Directives: No Advance Directives Information Provided: No service: No Current occupational status: retired Cognitive needs: No Hearing needs: No Vision needs: Yes Physical Exam 2 Vital Signs: Vital Signs: Last Vital Signs Temp 97.5 F 10/08/24 00:35 Pulse 65 10/08/24 00:35 Resp 16 10/08/24 00:35 BP 162/79 H 10/08/24 00:35 Pulse Ox 98 10/08/24 00:35 O2 Del Method Room Air 10/08/24 00:35 BMI result Body Mass Index 25.8 Appearance: Alert. Oriented X3. No acute distress. Eyes: no pallor or icterus ENT: Pharynx normal. Oral Mucosa moist Neck: Normal inspection. Neck supple. CVS: Normal heart rate and rhythm. Pulses normal. Respiratory: No respiratory distress. Equal air entry bilateral, no wheezing/rales/rhonchi Abd: soft, not tender Root catheter in place Skin: Skin warm and dry. Normal skin color. Normal skin turgor. Extremities: No lower extremity edema, no calf tenderness Neuro: Oriented X 3. Course Course Course Narrative: This is an RME: Additional HPI, ROS, PE not included below will be deferred to primary provider. RME assessment and note performed by: Alisha Herrera PA-C This is a 63-year-old male who presents to the ER with complaints of catheter malfunction. Patient had a Root catheter placed on October 03, 2024. He states that he feels as though since this afternoon he was not having this right amount of urinary output, and believes that the catheter is clogged. Reduced output, and is now having some bladder pressure. Plan: Bladder scan, UA Medications Administered Discontinued Medications Generic Name Dose Route Start Last Admin Trade Name Freq PRN Reason Stop Dose Admin Cefuroxime Axetil 500 mg 10/08/24 00:38 10/08/24 00:54 Cefuroxime Axetil 500 Mg Tablet PO 10/08/24 00:39 500 mg ONCE ONE Administration Phenazopyridine HCl 200 mg 10/08/24 00:43 10/08/24 00:53 Phenazopyridine Hcl 200 Mg Tablet PO 10/08/24 00:44 200 mg ONCE ONE Administration Medical Decision Making Medical Decision Making MDM Narrative: Patient with UTI with Root catheter in place will prescribe cefuroxime Root catheter is draining urine pretty well already on Flomax advised to follow with urologist Lab Data MDM Lab Attestation statement: I reviewed the patient's lab results. 10/07/24 19:43 10/07/24 19:43 Labs: Lab Results 10/07/24 10/07/24 Range/Units 19:43 23:58 WBC 6.4 (4.8-10.8) X10*3/uL RBC 4.38 L (4.60-5.80) X10*6/uL Hgb 13.9 L (14.0-18.0) g/dl Hct 39.8 L (42.0-52.0) % MCV 90.9 (80.0-98.0) fL MCH 31.7 (27.0-33.0) pg MCHC 34.9 (31.0-36.0) g/dl RDW 12.2 (11.0-16.0) % Plt Count 248 (160-400) X10*3/uL MPV 9.4 (9.4-12.4) fL Immature Gran % (Auto) 0.3 (0.0-0.4) % Neut % (Auto) 60.0 (45-73) % Lymph % (Auto) 27.1 (20-40) % [place] % (Auto) 7.7 (2-11) % Eos % (Auto) 4.4 H (0-4) % Baso % (Auto) 0.5 (0-2) % Lymph # (Auto) 1.7 (1.2-4.9) X10*3/uL [place] # (Auto) 0.5 (0.1-1.2) X10*3/uL Eos # (Auto) 0.3 (0.0-0.4) X10*3/uL Baso # (Auto) 0.0 (0.0-0.2) X10*3/uL Abs Immat Gran (auto) 0.02 (0.00-0.03) X10*3/uL Absolute Neuts (auto) 3.8 (2.0-8.3) x10*3/uL Absolute Nucleated RBC 0.000 (0.0-0.012) X10*3/uL Nucleated RBC % (auto) 0.0 (0.0-0.2) /100WBC Sodium 143 (135-145) mmol/L Potassium 4.4 (3.3-5.1) mmol/L Chloride 110 H (96-108) mmol/L Carbon Dioxide 28 (22-29) mmol/L Anion Gap 9 L (12-20) BUN 26 H (9-16) mg/dL Creatinine 1.04 (0.5-1.4) mg/dL Estim Creat Clear Calc 78.7 Estimated GFR > 60 Random Glucose 74 (60-115) mg/dL Calcium 8.9 (8.4-10.2) mg/dL Total Bilirubin 0.4 (0.0-1.0) mg/dL Direct Bilirubin 0.1 (0.0-0.5) mg/dL AST 20 (5-37) U/L ALT 15 (0-40) U/L Alkaline Phosphatase 49 (39-117) U/L Total Protein 7.2 (6.5-8.0) g/dL Albumin 4.0 (3.5-5.0) g/dL Lipase 44 (8-78) U/L Urine Color Yellow Urine Appearance Turbid Urine pH 6.0 (5.0-9.0) Ur Specific [place] >= 1.030 H (1.005-1.025) Urine Protein 100 (2+) H (Neg-Trace) mg/dL Urine Glucose (UA) Negative (Negative) mg/dL Urine Ketones Trace (Negative) mg/dL Urine Blood Large (3+) H (Negative) Urine Nitrite Positive H (Negative) Ur Leukocyte Esterase Small (1+) H (Negative) Urine RBC >20 H (0-2) /HPF Urine WBC 21-50 H (0-5) /HPF Ur Squamous Epith Cells 0-2 (0-2) /HPF Urine Bacteria 4+ (None Seen) Hyaline Casts >20 (0-2) /LPF Discharge Plan Discharge Clinical Impression: Urinary tract infection, BPH (benign prostatic hyperplasia), Root catheter problem Patient Disposition: Home, Self-Care Instructions: Enlarged Prostate (BPH) (ED), Catheter-associated Urinary Tract Infection (ED) Additional Instructions: Drink plenty of fluids Continue Flomax Antibiotic as prescribed Follow up with urologist Prescriptions: New cefuroxime axetil 500 mg tablet 500 mg PO BID 7 Days Qty: 14 0RF phenazopyridine [Pyridium] 200 mg tablet 200 mg PO TID 2 Days Qty: 6 0RF No Action tamsulosin [Flomax] 0.4 mg capsule 0.4 mg PO BEDTIME Qty: 90 0RF losartan 50 mg tablet 100 mg PO DAILY Qty: 90 0RF Print Language: Upper Sorbian
[2024-10-07 19:48] LABS: MANUAL DIFF FLAG NO
[2024-10-07 19:53] LABS: Basophils Percent Auto 0.5 % (0-2); Eosinophils Absolute Auto 0.3 X10*3/uL (0.0-0.4); Eosinophils Percent Auto 4.4 % (0-4); Hematocrit 39.8 % (42.0-52.0); Hemoglobin 13.9 g/dl (14.0-18.0); Imm Gran Abs Auto 0.02 X10*3/uL (0.00-0.03); Imm Gran Pct Auto 0.3 % (0.0-0.4); Lymphocytes Absolute Auto 1.7 X10*3/uL (1.2-4.9); Lymphocytes Percent Auto 27.1 % (20-40); Mean Corpuscular HGB Conc 34.9 g/dl (31.0-36.0); Mean Corpuscular Hemoglobin 31.7 pg (27.0-33.0); Mean Corpuscular Volume 90.9 fL (80.0-98.0); Mean Platelet Volume 9.4 fL (9.4-12.4); Monocytes Absolute Auto 0.5 X10*3/uL (0.1-1.2); Monocytes Percent Auto 7.7 % (2-11); Neutrophils Absolute Auto 3.8 x10*3/uL (2.0-8.3); Platelet Count 248 X10*3/uL (160-400); Red Blood Count 4.38 X10*6/uL (4.60-5.80); Red Cell Distribution Width 12.2 % (11.0-16.0); White Blood Count 6.4 X10*3/uL (4.8-10.8)
[2024-10-07 20:05] LABS: Alanine Aminotransferase 15 U/L (0-40); Alkaline Phosphatase 49 U/L (39-117); Anion Gap 9 (12-20); Aspartate Amino Transferase 20 U/L (5-37); Bilirubin Direct 0.1 mg/dL (0.0-0.5); Bilirubin Total 0.4 mg/dL (0.0-1.0); Blood Urea Nitrogen 26 mg/dL (9-16); Calcium 8.9 mg/dL (8.4-10.2); Carbon Dioxide 28 mmol/L (22-29); Chloride 110 mmol/L (96-108); Creatinine Clr Calc Pharmacy 78.7; Estimated Glomerular Filt Rate > 60; Glucose Random 74 mg/dL (60-115); Lipase 44 U/L (8-78); Potassium 4.4 mmol/L (3.3-5.1); Sodium 143 mmol/L (135-145); Total Protein 7.2 g/dL (6.5-8.0)
[2024-10-07 22:13] VITALS: BP 183/90; PULSE 67; RESP 16; TEMP 36.7; O2SAT 98
[2024-10-08 00:08] LABS: Appearance Urine Turbid; Color Urine Yellow; Glucose Urine UA Negative (Negative); Leukocyte Esterase Urine Small (1+) (Negative); Nitrite Urine Positive (Negative); Specific Gravity - Urine >= 1.030 (1.005-1.025); UMIC TRIGGER UACC YES; Urine Blood Large (3+) (Negative); Urine Ketones Trace mg/dL (Negative); Urine Protein 100 (2+) mg/dL (Neg-Trace)
[2024-10-08 00:22] LABS: Bacteria Urine 4+ (None Seen); Hyaline Casts Urine >20 /LPF (0-2); RBC Urine >20 /HPF (0-2); Squamous Epithelial Cell Urine 0-2 /HPF (0-2); UACC Culture Trigger YES; WBC Urine 21-50 /HPF (0-5)
[2024-10-08 00:35] VITALS: BP 162/79; PULSE 65; RESP 16; TEMP 36.4; O2SAT 98
--- NOTE | 2024-10-08 00:45 | MHC.EDTECH ---
this tech assumed care of the pt @2300, at this time VS have been taken and BP increased to the 160's, RN made aware. pt is sitting in the stretcher and given call light for safety.
[2024-10-08 00:50] VITALS: BP 162/79; PULSE 65; RESP 16; TEMP 36.4; O2SAT 98
[2024-10-08] MEDS: Phenazopyridine HCL 200 MG TABLET PO (00:53)
[2024-10-08] MEDS: cefuroxime axetiL 500 MG TABLET PO (00:54)
== END 2024-10-08 00:50 | disposition home or self-care (01) ==
PROVIDERS: Physician Assistant Medical; Emergency Provider Internal Medicine; PCP Internal Medicine
DX: N39.0 Urinary tract infection, site not specified (principal); N40.1 Benign prostatic hyperplasia with lower urinary tract symptoms; Z46.6 Encounter for fitting and adjustment of urinary device
CPT/HCPCS: 36415; 51798; 80048; 80076; 81001; 83690; 85025; 87086; 87088; 87147; 87186; 99283; 99285

== ENCOUNTER → 2024-10-15 08:20 | Outpatient (BNVA) | payer OTHER, SELFPAY | PROVIDERS: PCP Internal Medicine; Visit Provider Urology | DX: R33.8 Other retention of urine (principal) | CPT/HCPCS: 51700; 51798 ==

== ENCOUNTER 2024-10-18 10:14 | Outpatient (REF) | payer OTHER, SELFPAY ==
[2024-10-18 14:00] LABS: Appearance Urine Clear; Color Urine Orange; Glucose Urine UA Negative (Negative); Leukocyte Esterase Urine Moderate (2+) (Negative); Nitrite Urine Positive (Negative); Specific Gravity - Urine 1.015 (1.005-1.025); UMIC TRIGGER UA YES; Urine Blood Negative (Negative); Urine Ketones Negative (Negative); Urine Protein 30 (1+) mg/dL (Neg-Trace)
[2024-10-18 14:09] LABS: Bacteria Urine None Seen (None Seen); Hyaline Casts Urine 0-2 /LPF (0-2); Renal Epithelial Cells Urine Present; Transitional Epi Cells Urine Present; WBC Urine 0-5 /HPF (0-5)
== END 2024-10-18 10:15 | disposition home or self-care (01) ==
LOC: HO.HMGCLDS 10:14
PROVIDERS: PCP Internal Medicine; Visit Provider Urology
DX: R33.8 Other retention of urine (principal); R35.0 Frequency of micturition; R35.1 Nocturia
CPT/HCPCS: 81001; 87086; 87088; 87186

== ENCOUNTER 2024-10-20 09:09 | Outpatient (AMB) | payer MEDICARE, SELFPAY ==
--- NOTE | 2024-10-20 09:10 | MHC.PC.OV ---
Vital Signs 10/20/24 09:11 Height 6 ft Weight 190 lb BMI 25.8 BP 125/82 Blood Pressure Location Rt brachial Position Sitting Respiration 18 Pulse 67 Pulse Source Pulse Oximeter Temp 97.8 F Temp Source Oral Pulse Oximetry (%) 98 Oxygen Delivery Method Room Air Intake Visit Reasons: 2 week follow up Intake Note: Pt is here today for 2 weeks follow up visit. Allergies No Known Allergies Allergy (Verified 10/20/24 09:12) Medication List - Last Reconciled 10/20/24 by Pattie Sierra MD finasteride 5 mg PO DAILY losartan 100 mg (2 x 50 mg) PO DAILY nitrofurantoin macrocrystal 100 mg PO BID 7 days phenazopyridine (Pyridium) 200 mg PO TID 3 days tamsulosin (Flomax) 0.4 mg PO BEDTIME Tobacco use date assessed: 10/20/24 Dental Screening Dental Screen Date: 08/30/24 HPI 2 week follow up HPI Details Pt presents for follow-up on hypertension better controlled on 100 mg of losartan. Patient followed up with Urology after ER visit for acute urinary retention and catheter was removed by Urology. The day after the visit patient developed acute UTI and started taking nitrofurantoin yesterday prescribed by Urology.. He is feeling better. He denies dysuria and is able to empty the bladder on Flomax. Patient denies nausea vomiting fever or chills. He has a an appointment with Urology in 2 months. [facility] Medical History Strain of left biceps Left rotator cuff tear Biceps muscle tear Hearing loss in right ear Surgical History S/P right rotator cuff repair H/O lateral meniscus repair of right knee Family History Brother S/P CABG x 4, Onset Age: 50 Brother Colon polyps Social History Household Members Other:: , retired, plays golf, no children, worked for [employer] 40 yrs Housing: House Alcohol intake: current Alcohol intake frequency: does not drink Comment: 1 to 2 drinks per week Patient Tobacco Use Status: Never used Tobacco e-Cigarette/Vaping Use: Never Used Second Hand Smoke Exposure: No service: No Current occupational status: retired Cognitive needs: No Hearing needs: No Vision needs: Yes Questionnaire Thrive Questionnaire Date Thrive assessed: 08/23/24 I am a: Patient What is your living situation today?: I have a steady place to live Within the past 12 months, did the food you bought not last and you didn't have the money to get more?: Never true Within the past 12 months, did you worry whether your food would run out before you got money to buy more?: Never true Do you have trouble paying for medicines?: No Do you have trouble getting transportation to medical appointments?: No Do you have trouble paying your heating and electricity bill?: No Do you have trouble taking care of your child, family member or friend?: No Do you have trouble with day-to-day activities such as bathing, preparing meals, shopping, managing finances, etc.?: No Are you currently unemployed and looking for a job?: No Are you interested in more education?: No Please select the resources that you would like help with: None Currently or been in a relationship where the following occur: No concerns reported THRIVE Score: 0 EVERETT-7 AMB Questionnaire EVERETT-7 Date EVERETT - 7 assessed: 08/30/24 Source: Developed by Drs. Dionicio Marino, Ashley Alford, Mckinley Dominguez and colleagues, with an educational magda from [employer]. Review of Systems Const All systems reviewed & are unremarkable except as noted in HPI and below Reports no additional complaints Eyes Reports no additional complaints ENT Reports no additional complaints Card Reports no additional complaints Resp Reports no additional complaints GI Reports no additional complaints Reports no additional complaints Physical exam (Primary Care) Vital Signs: Last Vital Signs Temp 97.8 F 10/20/24 09:11 Pulse 67 10/20/24 09:11 Resp 18 10/20/24 09:11 Pulse Ox 98 10/20/24 09:11 Oxygen Delivery Method Room Air 10/20/24 09:11 BMI result Body Mass Index 25.8 Tobacco/Smoking Status: Tobacco use Status Tobacco use date assessed 10/20/24 10/20/24 09:14 Patient Tobacco Use Status Never used Tobacco 10/20/24 09:14 e-Cigarette/Vaping Use Never Used 10/20/24 09:14 Thrive Assessment: Date of Thrive Assessment Date Thrive assessed 08/23/24 10/20/24 09:14 Currently or been in a relationship where the following occur: No concerns reported Const General: no acute distress HENMT Head: Yes normal to inspection Ears: hearing grossly normal bilaterally Mouth: Normal oral and palatal mucosa present Neck Neck: Yes supple Resp Effort & Inspection: normal respiratory effort Auscultation: clear to auscultation bilaterally Cardio Rhythm: regular rhythm Heart sounds: S1 normal heart sound present and S2 normal heart sound present GI Inspection: Yes normal to inspection Palpation (GI): Soft to palpation Percussion: Yes normal to percussion Auscultation: normal bowel sounds Coding Level of Care Code Est Pt Level 4 (62719) Diagnoses Hypertension, unspecified type I10 Hypertension type: unspecified BPH (benign prostatic hyperplasia) N40.0 Assessment & Plan Assessment & Plan (1) Hypertension: Code(s): I10 - Essential (primary) hypertension Category: Medical Qualifiers: Hypertension type: unspecified Qualified Code(s): I10 - Essential (primary) hypertension Plan: Continue losartan 100 mg daily follow-up in 1 month (2) BPH (benign prostatic hyperplasia): Code(s): N40.0 - Benign prostatic hyperplasia without lower urinary tract symptoms Category: Medical Plan: Continue tamsulosin and add finasteride. Patient will complete a course of Macrobid prescribed for 1 week and will repeat UA and urine culture 1 week after the treatment. Orders: Orders UA w Microscopic 2 Weeks I10 - Essential (primary) hypertension Urine Culture 2 Weeks I10 - Essential (primary) hypertension Basic Metabolic Panel Today N40.0 - Benign prostatic hyperplasia without lower urinary tract symptoms Medications: New finasteride 5 mg PO DAILY 90 tabs 1RF losartan 100 mg PO DAILY 90 tabs 0RF
[2024-10-20 09:11] VITALS: BP 125/82; PULSE 67; RESP 18; TEMP 36.6; O2SAT 98; BMI 25.8
== END 2024-10-20 09:51 | disposition home or self-care (01) ==
LOC: HO.HMCC 09:10
PROVIDERS: PCP Internal Medicine; Visit Provider Internal Medicine
DX: I10 Essential (primary) hypertension (principal); N40.0 Benign prostatic hyperplasia without lower urinary tract symptoms

== ENCOUNTER → 2024-10-20 09:09 | Outpatient (BNVA) | payer MEDICARE, SELFPAY | PROVIDERS: PCP Internal Medicine; Visit Provider Internal Medicine | DX: I10 Essential (primary) hypertension (principal); N40.0 Benign prostatic hyperplasia without lower urinary tract symptoms | CPT/HCPCS: 99212 ==

== ENCOUNTER 2024-11-01 09:18 | Outpatient (REF) | payer MEDICARE, SELFPAY ==
[2024-11-01 10:57] LABS: Appearance Urine Clear; Color Urine Yellow; Glucose Urine UA Negative (Negative); Leukocyte Esterase Urine Negative (Negative); Nitrite Urine Negative (Negative); PH 5.5 (5.0-9.0); Urine Blood Negative (Negative); Urine Ketones Negative (Negative); Urine Protein Negative (Neg-Trace)
[2024-11-01 11:01] LABS: Anion Gap 11 (12-20); Blood Urea Nitrogen 18 mg/dL (9-16); Calcium 9.2 mg/dL (8.4-10.2); Carbon Dioxide 26 mmol/L (22-29); Chloride 104 mmol/L (96-108); Estimated Glomerular Filt Rate > 60; Glucose Random 98 mg/dL (60-115); Potassium 3.9 mmol/L (3.3-5.1); Sodium 137 mmol/L (135-145)
[2024-11-01 11:07] LABS: Bacteria Urine None Seen (None Seen); Hyaline Casts Urine 0-2 /LPF (0-2); RBC Urine 0-2 /HPF (0-2); Squamous Epithelial Cell Urine 0-2 /HPF (0-2); WBC Urine 0-5 /HPF (0-5)
== END 2024-11-01 09:19 | disposition home or self-care (01) ==
LOC: HO.HMGCLDS 09:18
PROVIDERS: PCP Internal Medicine; Visit Provider Internal Medicine
DX: I10 Essential (primary) hypertension (principal); N40.0 Benign prostatic hyperplasia without lower urinary tract symptoms
CPT/HCPCS: 36415; 80048; 81001; 87086

== ENCOUNTER 2024-11-23 09:59 | Outpatient (AMB) | payer MEDICARE, SELFPAY ==
[2024-11-23 10:03] VITALS: BP 128/66; PULSE 55; RESP 18; TEMP 36.6; O2SAT 100; BMI 25.8
--- NOTE | 2024-11-23 10:03 | A.OFFPC_ITS ---
Vital Signs 11/23/24 10:03 Height 6 ft Weight 190 lb BMI 25.8 BP 128/66 Blood Pressure Location Lt brachial Position Sitting Respiration 18 Pulse 55 Pulse Source Pulse Oximeter Temp 97.8 F Temp Source Oral Pulse Oximetry (%) 100 Oxygen Delivery Method Room Air Intake Visit Reasons: 1m follow up Intake Note: Pt is here today for 1 month follow up visit. Allergies No Known Allergies Allergy (Verified 11/23/24 10:05) Medication List - Last Reconciled 11/23/24 by Pattie Sierra MD finasteride 5 mg PO DAILY losartan 100 mg PO DAILY tamsulosin (Flomax) 0.4 mg PO BEDTIME Tobacco use date assessed: 11/23/24 Fall risk assessment: No Falls in past year Last assessed Fall Risk: 11/23/24 Dental Screening Dental Screen Date: 08/30/24 HPI 1m follow up HPI Details Patient presents for the follow-up of hypertension controlled on losartan and BPH stable on finasteride and tamsulosin. Patient had negative urine culture 1 week after completing the treatment for UTI. He has an appointment with the urologist to follow-up on BPH. Patient's symptoms of BPH significantly improved on current medications. [facility] Medical History (Updated 11/23/24 @ 15:54 by Pattie Sierra MD) Hyperlipemia Hypertension BPH (benign prostatic hyperplasia) Strain of left biceps Left rotator cuff tear Biceps muscle tear Hearing loss in right ear Surgical History S/P right rotator cuff repair H/O lateral meniscus repair of right knee Family History Brother S/P CABG x 4, Onset Age: 50 Brother Colon polyps Social History Household Members Other:: , retired, plays golf, no children, worked for [employer] 40 yrs Housing: House Alcohol intake: current Alcohol intake frequency: does not drink Comment: 1 to 2 drinks per week Patient Tobacco Use Status: Never used Tobacco e-Cigarette/Vaping Use: Never Used Second Hand Smoke Exposure: No service: No Current occupational status: retired Cognitive needs: No Hearing needs: No Vision needs: Yes Questionnaire Thrive Questionnaire Date Thrive assessed: 08/23/24 I am a: Patient What is your living situation today?: I have a steady place to live Within the past 12 months, did the food you bought not last and you didn't have the money to get more?: Never true Within the past 12 months, did you worry whether your food would run out before you got money to buy more?: Never true Do you have trouble paying for medicines?: No Do you have trouble getting transportation to medical appointments?: No Do you have trouble paying your heating and electricity bill?: No Do you have trouble taking care of your child, family member or friend?: No Do you have trouble with day-to-day activities such as bathing, preparing meals, shopping, managing finances, etc.?: No Are you currently unemployed and looking for a job?: No Are you interested in more education?: No Please select the resources that you would like help with: None Currently or been in a relationship where the following occur: No concerns reported THRIVE Score: 0 EVERETT-7 AMB Questionnaire EVERETT-7 Date EVERETT - 7 assessed: 08/30/24 Source: Developed by Drs. Dionicio Marino, Ashley Alford, Mckinley Dominguez and colleagues, with an educational magda from [employer]. Review of Systems Const All systems reviewed & are unremarkable except as noted in HPI and below Eyes Reports no additional complaints ENT Reports no additional complaints Card Reports no additional complaints Resp Reports no additional complaints GI Reports no additional complaints Reports no additional complaints Physical exam (Primary Care) Vital Signs: Last Vital Signs Temp 97.8 F 11/23/24 10:03 Pulse 55 11/23/24 10:03 Resp 18 11/23/24 10:03 BP 128/66 11/23/24 10:03 Pulse Ox 100 11/23/24 10:03 Oxygen Delivery Method Room Air 11/23/24 10:03 BMI result Body Mass Index 25.8 Tobacco/Smoking Status: Tobacco use Status Tobacco use date assessed 11/23/24 11/23/24 10:12 Patient Tobacco Use Status Never used Tobacco 11/23/24 10:08 e-Cigarette/Vaping Use Never Used 11/23/24 10:08 Thrive Assessment: Date of Thrive Assessment Date Thrive assessed 08/23/24 11/23/24 10:08 Currently or been in a relationship where the following occur: No concerns reported Const General: no acute distress HENMT Head: Yes normal to inspection Throat: Yes posterior oropharynx normal Neck Neck: Yes supple Resp Effort & Inspection: normal respiratory effort Auscultation: clear to auscultation bilaterally Cardio Rhythm: regular rhythm Heart sounds: S1 normal heart sound present and S2 normal heart sound present Immunizations pneumoc 20-kenzie conj-dip cr(PF) 0.5 mL IM syringe Performing Provider: Pattie Sierra MD Performing Location: [facility] Administered by: MAITE Medina on 11/23/24 10:56 Dose Route Admin Location Dispensed Lot Number Expiration Date [facility] Loan Supervisor 0.5 mL IM Left Deltoid 0.5 mL [id number] 10/18/25 [id number] [employer] VIS Given Date VIS Provided VIS Publication Date 11/23/24 Single Vaccine 21 Eligibility Eligibility Date Funding Source Not [facility] Eligible 11/23/24 Private Coding Level of Care Code Est Pt Level 4 (24545) Diagnoses Hypertension, unspecified type I10 Hypertension type: unspecified Hyperlipemia E78.5 BPH (benign prostatic hyperplasia) N40.0 Assessment & Plan Assessment & Plan (1) Hypertension: Code(s): I10 - Essential (primary) hypertension Category: Medical Qualifiers: Hypertension type: unspecified Qualified Code(s): I10 - Essential (primary) hypertension Plan: Continue losartan (2) Hyperlipemia: Code(s): E78.5 - Hyperlipidemia, unspecified Category: Medical Plan: Low-cholesterol diet increase physical activity discussed with the patient (3) BPH (benign prostatic hyperplasia): Code(s): N40.0 - Benign prostatic hyperplasia without lower urinary tract symptoms Category: Medical Plan: Continue current medications and follow-up with Urology Orders: Orders Lipid Panel 3 Months E78.5 - Hyperlipidemia, unspecified, I10 - Essential (primary) hypertension Comprehensive [place]. Panel Fast 3 Months E78.5 - Hyperlipidemia, unspecified, I10 - Essential (primary) hypertension Pneumococcal 20 Immunization Today Z23 - Encounter for immunization Medications: Discontinued losartan Discontinued Reason: Doctor's Order 100 mg (2 x 50 mg) PO DAILY 90 tabs 0RF
== END 2024-11-23 10:58 | disposition home or self-care (01) ==
LOC: HO.HMCC 10:00
PROVIDERS: PCP Internal Medicine; Visit Provider Internal Medicine
DX: I10 Essential (primary) hypertension (principal); E78.5 Hyperlipidemia, unspecified; N40.0 Benign prostatic hyperplasia without lower urinary tract symptoms; Z23 Encounter for immunization

== ENCOUNTER → 2024-11-23 09:59 | Outpatient (BNVA) | payer MEDICARE, SELFPAY | PROVIDERS: PCP Internal Medicine; Visit Provider Internal Medicine | DX: Z23 Encounter for immunization (principal); I10 Essential (primary) hypertension; N40.0 Benign prostatic hyperplasia without lower urinary tract symptoms; E78.5 Hyperlipidemia, unspecified | CPT/HCPCS: 90471; 90677; 99212 ==

== ENCOUNTER 2024-12-06 07:38 | Outpatient (AMB) | payer MEDICARE, SELFPAY ==
--- NOTE | 2024-12-06 07:46 | MHC.OFFVIS ---
Intake Visit Reasons: ER retention follow up Intake Note: Patient presents today for ER follow up on: retention Meds: Finasteride, Tamsulosin Allergies to Antibiotic: No Known Allergies Blood Thinner: None Urologist Md Required: No Accompanied by: Self / Same As Patient Allergies No Known Allergies Allergy (Verified 12/06/24 07:47) Medication List - Last Reconciled 12/06/24 by Hilton Rivas MD finasteride 5 mg PO DAILY losartan 100 mg PO DAILY tamsulosin (Flomax) 0.4 mg PO BEDTIME HPI Comments Details: 12/06/24--Anmol is a 64-year-old male who has been seen in the past for voiding dysfunction. He has history of prostate procedure over 15 years ago for BPH which he states did not work. He was last here in the office November of 2023 at which time workup was done including urodynamics which noted sensory urgency. He was treated with combination therapy, an anticholinergic and alpha-konrad. He presents today due to ER admission for urinary retention and UTI. He states initially he was told that he did not have a UTI a Root catheter was placed. After few days he had chills and went back to the emergency room and received antibiotics. The antibiotics did not seem to work and he received another set of antibiotics at did work. Urine culture was sent on 10/08/24 resulting Klebsiella and Citrobacter, repeat urine culture on 10/18/2024 was E coli. The patient was started on Proscar and is continuing tamsulosin he states that his urine flow has improved. I want him to continue the Proscar and tamsulosin. I have discussed further evaluation with office cystoscopy. 12/05/23--Here for CMG/Urodynamics. Completed a 3 day voiding diary voids were between 50 and at the highest 200 mL average volume was 90 mL per void. Frequency on average every hour to every 2-1/2 hours. CMG parameters detailed below. Interpretation: During the filling phase 1st sensation, was 49; sensory urgency was noted, first desire was 66 mL and strong desire was noted at 92 mL significant detrusor contractions were not noted during the filling phase bladder capacity was less than average, the patient felt that he was at capacity at 217 mL. He was unable to void with urethral catheter in place. He voided 125 mL after catheters were removed. Leakage was not observed during cough. Findings consistent with less than average functional bladder capacity, and sensory urgency. EMG- Appropriate changes in the waveforms were noted through out the study. I have discussed treatment options to include therapy for improving bladder compliance and outlet relaxation. The patient states he had a procedure on the prostate over 10 years ago. I have reviewed medication therapies as well as Botox bladder injection and sacral neuromodulation. The patient is agreeable to trial an anticholinergic and alpha-konrad. Myrbetriq 50 mg qday, tamsulosin daily in the evening. Risks and benefits discussed including but not limited to dizziness and retrograde ejaculation. Discussed renal ultrasound 11/11/2023-kidneys within normal limits large postvoid residual, estimated prostate volume 34 mL. 10/23/23--Frankie is a 62-year-old male who is here with complaints of urinating frequently especially at nighttime. He states that he has seen urologist in the past dating back to about 10 years ago. He states that in the past he had a procedure on the prostate. He has been told that his prostate is not enlarged. He is up at night to urinate every 1-1/2-2 hours. He states he also goes frequently during the day. He admits to not drinking a lot of water, however he denies excessive caffeine intake. He denies history of nicotine use. He states that he thinks he passed a kidney stone in the past. AUA symptom score 30. He has not taking any prescribed medication. Labs reviewed-PSA 08/15/2023--0.81 ng/mL. Bladder scan PVR 27 mL. Urinalysis 0 leukocytes, 0 blood. Prostate exam-nontender smooth. Plan discussed voiding diary for 3 days, urodynamics, ultrasound retroperitoneum. [facility] Medical History Hyperlipemia Hypertension BPH (benign prostatic hyperplasia) Strain of left biceps Left rotator cuff tear Biceps muscle tear Hearing loss in right ear Surgical History S/P right rotator cuff repair H/O lateral meniscus repair of right knee Family History Brother S/P CABG x 4, Onset Age: 50 Brother Colon polyps Social History Household Members Other:: , retired, plays golf, no children, worked for [employer] 40 yrs Housing: House Alcohol intake: current Alcohol intake frequency: does not drink Comment: 1 to 2 drinks per week Patient Tobacco Use Status: Never used Tobacco e-Cigarette/Vaping Use: Never Used Second Hand Smoke Exposure: No service: No Current occupational status: retired Cognitive needs: No Hearing needs: No Vision needs: Yes Review of Systems Const All systems reviewed & are unremarkable except as noted in HPI and below Reports no additional complaints Eyes Reports no additional complaints ENT Reports no additional complaints Card Reports no additional complaints Resp Reports no additional complaints GI Reports no additional complaints Reports as per HPI Musc Reports no additional complaints Skin/Breast Reports system reviewed and no additional complaints, except as documented Neuro Reports no additional complaints Psych Reports no additional complaints Endo Reports no additional complaints Giuliano/Lymph Reports no additional complaints Aller/Immun Reports no additional complaints Office Procedures Post Void Residual Post Residual Void Post Void Residual (PVR): 0 62132-Qxot Void Residual by ultrasound Results AMB Urinalysis, Automated UA Leukoctes 0 Kp/uL Last Edit by [email or web address] on 12/06/24 07:59 UA Nitrite Last Edit by [email or web address] on 12/06/24 07:59 UA Urobilinogen 0.2 mg/dL Last Edit by [email or web address] on 12/06/24 07:59 UA Protein 0 mg/dL Last Edit by [email or web address] on 12/06/24 07:59 UA pH 6.0 Last Edit by [email or web address] on 12/06/24 07:59 UA Blood 0 Алекасндр/uL Last Edit by [email or web address] on 12/06/24 07:59 UA Specific [place] 1.030 Last Edit by [email or web address] on 12/06/24 07:59 UA Ketone Last Edit by [email or web address] on 12/06/24 07:59 UA Bilirubin 0 mg/dL Last Edit by [email or web address] on 12/06/24 07:59 UA Glucose 0 mg/dL Last Edit by [email or web address] on 12/06/24 07:59 Results Reviewed Results Reviewed: Laboratory Last Values Urine pH (Auto) 6.0 12/06/24 07:47 Specific [place] (Auto) 1.030 12/06/24 07:47 Urine Protein (Auto) 0 mg/dL 12/06/24 07:47 Glucose (UA)(Auto) 0 mg/dL 12/06/24 07:47 Urine Blood (Auto) 0 Александр/uL 12/06/24 07:47 Urine Bilirubin (Auto) 0 mg/dL 12/06/24 07:47 Urine Urobilinogen (Auto) 0.2 mg/dL 12/06/24 07:47 Leukocyte Esterase (Auto) 0 Kp/uL 12/06/24 07:47 Collected: 10/18/245 Status: COMP Req#: [id number] Received: 10/18/24 Source: [facility] Sp Desc: Clean Cat Subm Dr: Hilton Rivas MD Ordered: Urine Culture Procedure Result Verified Urine Culture Final 10/21/24 Organism 1 Escherichia coli Quant > 100,000 cfu/mL ESBL Note: NOTE: Extended-Spectrum Beta-Lactamase enzyme present E coli M.I.C. RX --------- --- Ampicillin >=32 R Cefazolin (Urine) >=32 R Cefepime 16 R Ceftriaxone >=64 R Ciprofloxacin >=4 R Ertapenem <=0.12 S Gentamicin <=1 S Nitrofurantoin <=16 S Trimethoprim/Sulfamethoxazole <=20 S Collected: 10/08/24-UNK Status: COMP Req#: [id number] Received: 10/08/24 Source: [facility] Sp Desc: Clean Cat Subm Dr: Alisha Herrera Ordered: Urine Culture Procedure Result Verified Urine Culture Final 10/11/24 Organism 1 Klebsiella oxytoca Quant > 100,000 cfu/mL Organism 2 Citrobacter freundii Quant > 100,000 cfu/mL Kleb oxyto C freundii M.I.C. RX M.I.C. RX --------- --- --------- --- Ampicillin >=32 R Cefazolin 8 R >=32 R Cefepime <=0.12 S <=0.12 S Ceftriaxone <=0.25 S <=0.25 S Ciprofloxacin <=0.06 S <=0.06 S Gentamicin <=1 S <=1 S Nitrofurantoin 32 S <=16 S Trimethoprim/Sulfamethoxazole <=20 S <=20 S Date of Service: 10/06/24 EXAMINATION: US KIDNEY BILATERAL HISTORY: N40.0 - Benign prostatic hyperplasia, calculus of kidney TECHNIQUE: Real-time grayscale ultrasound imaging of the kidneys was performed and images were reviewed. COMPARISON: Comparison is made with the prior examination dated 11/11/2023. FINDINGS: Right kidney: The right kidney measures 10.2 x 4.9 x 5.4 cm. Renal parenchymal echotexture and thickness are normal. There are no masses. There is no hydronephrosis or renal calculi. Left Kidney: The left kidney measures 11.1 x 6.7 x 5.4 cm. Renal parenchymal echotexture and thickness are normal. There are no masses. There is no hydronephrosis or renal calculi. IMPRESSION: Unremarkable renal ultrasound. Date of Service: 11/11/23 Now your urine bladder EXAMINATION: US RETROPERITONEAL COMPLETE (RENAL) CLINICAL INFORMATION: Nocturia. Bladder outlet 0 was bladder or there are 1 weight and maybe a little bit more urinate while COMPARISON: X-ray abdomen KUB 07/31/2023. TECHNIQUE: Real-time imaging of the kidneys and bladder. FINDINGS: RIGHT KIDNEY: 11.5 x 5.2 x 4.5 cm (SAG x AP x TRV). The kidney is normal in size, contour, and echogenicity. Renal cortical thickness is normal. No calculi or focal parenchymal lesions. No hydronephrosis. LEFT KIDNEY: 10.7 x 6.3 x 5.5 cm (SAG x AP x TRV). The kidney is normal in size, contour, and echogenicity. Renal cortical thickness is normal. No calculi or focal parenchymal lesions. No hydronephrosis. BLADDER: Distended urinary bladder at 390 mL prevoid. Two attempts at voiding. Post void residual 313 mL. ADDITIONAL FINDINGS: Prostate measures 34 mL IMPRESSION: Enlarged prostate measuring 34 mL. No hydronephrosis. Distended urinary bladder with prevoid volume 390 mL and post void (2 attempts) residual volume 313 mL. Assessment & Plan Assessment & Plan (1) Nocturia: Comment: Has establish care with Urology. Code(s): R35.1 - Nocturia Category: Medical (2) History of kidney stones: Code(s): Z87.442 - Personal history of urinary calculi Category: Medical (3) Urinary frequency: Comment: Extensive workup by Urology in [facility] tried multiple medications unsuccessfully Code(s): R35.0 - Frequency of micturition Category: Medical (4) Acute urinary retention: Code(s): R33.8 - Other retention of urine Category: Medical (5) BPH (benign prostatic hyperplasia): Code(s): N40.0 - Benign prostatic hyperplasia without lower urinary tract symptoms Category: Medical (6) Urinary tract infection: Code(s): N39.0 - Urinary tract infection, site not specified Category: Medical Plan Urinary retention and UTI Continue Proscar and tamsulosin Follow-up office cystoscopy Orders: Orders AMB Urinalysis Automated Today Z13.9 - Encounter for screening, unspecified AMB Post Void Residual by ultrasound Today N40.0 - Benign prostatic hyperplasia without lower urinary tract symptoms Medications: Refilled finasteride 5 mg PO DAILY 90 tabs 3RF tamsulosin (Flomax) 0.4 mg PO BEDTIME 90 caps 3RF Coding Level of Care Code Est Pt Level 4 (35045) Complex EM visit Add On G2211 Diagnoses Nocturia R35.1 History of kidney stones Z87.442 Urinary frequency R35.0 Acute urinary retention R33.8 BPH (benign prostatic hyperplasia) N40.0 Urinary tract infection N39.0 CPT Codes Post Residual Void - PVR CPT Code: 27939-Odkv Void Residual by ultrasound ([id number])
== END 2024-12-06 08:35 | disposition home or self-care (01) ==
LOC: HO.HUSH 07:38
PROVIDERS: PCP Internal Medicine; Visit Provider Urology
DX: R35.1 Nocturia (principal); Z87.442 Personal history of urinary calculi; R35.0 Frequency of micturition; R33.8 Other retention of urine; N40.0 Benign prostatic hyperplasia without lower urinary tract symptoms; N39.0 Urinary tract infection, site not specified; Z13.9 Encounter for screening, unspecified
CPT/HCPCS: 99214; G2211

== ENCOUNTER → 2024-12-06 07:38 | Outpatient (BNVA) | payer MEDICARE, SELFPAY | PROVIDERS: PCP Internal Medicine; Visit Provider Urology | DX: N40.1 Benign prostatic hyperplasia with lower urinary tract symptoms (principal); R35.1 Nocturia; R35.0 Frequency of micturition; R33.8 Other retention of urine; N39.0 Urinary tract infection, site not specified; Z87.442 Personal history of urinary calculi | CPT/HCPCS: 51798; 81003; 99212 ==

== ENCOUNTER 2025-01-17 09:21 | Outpatient (AMB) | payer MEDICARE, SELFPAY ==
--- NOTE | 2025-01-17 09:38 | A.OFFVIS_ITS ---
Intake Visit Reasons: cysto Intake Note: Patient is present for Cystoscopy Urology Medication:FINASTERIDE,TAMSULOSIN Antibiotic Allergy:NONE Blood Thinner:NONE Lot:[id number] Exp:07/25/27 Hospital Liaison Required: No Allergies No Known Allergies Allergy (Verified 01/17/25 09:41) HPI Comments Details: 01/17/25--Here for cystoscopy. Cystoscopy findings: prostatic urethra trilobar enlargement, prominent median lobe, obstructive bulbous urethra WNL, no suspicious bladder lesions visualized Plan- Green light laser. 12/06/24--Anmol is a 64-year-old male who has been seen in the past for voiding dysfunction. He has history of prostate procedure over 15 years ago for BPH which he states did not work. He was last here in the office November of 2023 at which time workup was done including urodynamics which noted sensory urgency. He was treated with combination therapy, an anticholinergic and alpha-konrad. He presents today due to ER admission for urinary retention and UTI. He states initially he was told that he did not have a UTI a Root catheter was placed. After few days he had chills and went back to the emergency room and received antibiotics. The antibiotics did not seem to work and he received another set of antibiotics at did work. Urine culture was sent on 10/08/24 resulting Klebsiella and Citrobacter, repeat urine culture on 10/18/2024 was E coli. The patient was started on Proscar and is continuing tamsulosin he states that his urine flow has improved. I want him to continue the Proscar and tamsulosin. I have discussed further evaluation with office cystoscopy. 12/05/23--Here for CMG/Urodynamics. Completed a 3 day voiding diary voids were between 50 and at the highest 200 mL average volume was 90 mL per void. Frequency on average every hour to every 2-1/2 hours. CMG parameters detailed below. Interpretation: During the filling phase 1st sensation, was 49; sensory urgency was noted, first desire was 66 mL and strong desire was noted at 92 mL significant detrusor contractions were not noted during the filling phase bladder capacity was less than average, the patient felt that he was at capacity at 217 mL. He was unable to void with urethral catheter in place. He voided 125 mL after catheters were removed. Leakage was not observed during cough. Findings consistent with less than average functional bladder capacity, and sensory urgency. EMG- Appropriate changes in the waveforms were noted through out the study. I have discussed treatment options to include therapy for improving bladder compliance and outlet relaxation. The patient states he had a procedure on the prostate over 10 years ago. I have reviewed medication therapies as well as Botox bladder injection and sacral neuromodulation. The patient is agreeable to trial an anticholinergic and alpha-konrad. Myrbetriq 50 mg qday, tamsulosin daily in the evening. Risks and benefits discussed including but not limited to dizziness and retrograde ejaculation. Discussed renal ultrasound 11/11/2023- kidneys within normal limits large postvoid residual, estimated prostate volume 34 mL. 10/23/23--Frankie is a 62-year-old male who is here with complaints of urinating f requently especially at nighttime. He states that he has seen urologist in the past dating back to about 10 years ago. He states that in the past he had a procedure on the prostate. He has been told that his prostate is not enlarged. He is up at night to urinate every 1-1/2-2 hours. He states he also goes frequently during the day. He admits to not drinking a lot of water, however he denies excessive caffeine intake. He denies history of nicotine use. He states that he thinks he passed a kidney stone in the past. AUA symptom score 30. He has not taking any prescribed medication. Labs reviewed-PSA 08/15/2023--0.81 ng/mL. Bladder scan PVR 27 mL. Urinalysis 0 leukocytes, 0 blood. Prostate exam-nontender smooth. Plan discussed voiding diary for 3 days, urodynamics, ultrasound retroperitoneum. 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 Housing: House Alcohol intake: current Alcohol intake frequency: does not drink Comment: 1 to 2 drinks per week Patient Tobacco Use Status: Never used Tobacco e-Cigarette/Vaping Use: Never Used Second Hand Smoke Exposure: No service: No Current occupational status: retired Cognitive needs: No Hearing needs: No Vision needs: Yes Review of Systems Const All systems reviewed & are unremarkable except as noted in HPI and below Reports no additional complaints Eyes Reports no additional complaints ENT Reports no additional complaints Card Reports no additional complaints Resp Reports no additional complaints GI Reports no additional complaints Reports as per HPI Musc Reports no additional complaints Skin/Breast Reports system reviewed and no additional complaints, except as documented Neuro Reports no additional complaints Psych Reports no additional complaints Endo Reports no additional complaints Giuliano/Lymph Reports no additional complaints Aller/Immun Reports no additional complaints Office Procedures Cystoscopy Consent Discussed risk and benefit or proposed procedure with the patient. Information consent for procedure given to the patient. Discussed technical aspects, risks, benefits and alternatives in full. Addressed all of the patient's questions and concerns regarding the procedure. The patient demonstrated knowledge and understanding. They wish to proceed with this procedure. Preparation The patient was prepped in the usual manner. A interior wirer was present and in the room. Genitalia was prepped with betadine solution in a sterile manner. Lidocaine Jelly 2% was placed into the urethra and 16Fr flexible Olympus cystoscope was inserted into the meatus after adequate lubrication. Procedure Time out per protocol performed. The flexible cystoscope is passed transurethrally: The bladder was inspected in its entirety with utilization retroflexion displaying: Tumor(s): no suspicious bladder lesions visualized Trabeculation: Mild Mucosal Erthema: mild Orifices: normal shape and position Urethra: normal Cystoscopy findings: prostatic urethra trilobar enlargement, prominent median lobe, obstructive bulbous urethra WNL, no suspicious bladder lesions visualized [id number] DISPOSABLE SCOPE URO-G FLEXIBLE SCOPE Procedure code (CPT) selection complete Office Meds lidocaine HCl 2 % mucosal jelly in applicator Performing Provider: Hilton Rivas MD [facility] Administered by: Marsha Ann RN on 01/17/25 09:54 Dose Route Admin Location Dispensed Lot Number Expiration Date NDC Underwater Hunter 10 mL intra-urethral 20 mL ciprofloxacin HCl 500 mg tablet Performing Provider: Hilton Rivas MD Performing Location: [facility] Administered by: Marsha Ann RN on 01/17/25 09:54 Dose Route Admin Location Dispensed Lot Number Expiration Date NDC Underwater Hunter 500 mg PO 1 tab phenazopyridine 200 mg tablet Performing Provider: Hilton Rivas MD Performing Location: [facility] Administered by: Marsha Ann RN on 01/17/25 09:54 Dose Route Admin Location Dispensed Lot Number Expiration Date NDC Underwater Hunter 200 mg PO 1 tab Results AMB Urinalysis, Automated UA Leukoctes 0 Kp/uL Last Edit by DOMENICA Ruggiero on 01/17/25 16:06 UA Nitrite Negative Last Edit by DOMENICA Ruggiero on 01/17/25 16:06 UA Urobilinogen 0.2 mg/dL Last Edit by DOMENICA Ruggiero on 01/17/25 16:0 6 UA Protein 15 mg/dL Last Edit by DOMENICA Ruggiero on 01/17/25 16:06 UA pH 6.0 Last Edit by Lissa Tello CCM on 01/17/25 16:06 UA Blood 0 Александр/uL Last Edit by DOMENICA Ruggiero on 01/17/25 16:06 UA Specific [place] 1.025 Last Edit by DOMENICA Ruggiero on 01/17/25 16: 06 UA Ketone Negative Last Edit by DOMENICA Ruggiero on 01/17/25 16:06 UA Bilirubin 0 mg/dL Last Edit by DOMENICA Ruggiero on 01/17/25 16:06 UA Glucose 0 mg/dL Last Edit by DOMENICA Ruggiero on 01/17/25 16:06 Results Reviewed Results Reviewed: Laboratory Last Values Urine pH (Auto) 6.0 01/17/25 16:04 Specific [place] (Auto) 1.025 01/17/25 16:04 Urine Protein (Auto) 15 mg/dL 01/17/25 16:04 Glucose (UA)(Auto) 0 mg/dL 01/17/25 16:04 Urine Ketones (Auto) Negative 01/17/25 16:04 Urine Blood (Auto) 0 Александр/uL 01/17/25 16:04 Urine Nitrite (Auto) Negative 01/17/25 16:04 Urine Bilirubin (Auto) 0 mg/dL 01/17/25 16:04 Urine Urobilinogen (Auto) 0.2 mg/dL 01/17/25 16:04 Leukocyte Esterase (Auto) 0 Kp/uL 01/17/25 16:04 Collected: 10/18/24-1025 Status: COMP Req#: [id number] Received: 10/18/243 Source: [facility] Sp Desc: Clean Cat Subm Dr: Hilton Rivas MD Ordered: Urine Culture Procedure Result Verified Urine Culture Final 10/21/24-755 Organism 1 Escherichia coli Quant > 100,000 cfu/mL ESBL Note: NOTE: Extended-Spectrum Beta-Lactamase enzyme present E coli M.I.C. RX --------- --- Ampicillin >=32 R Cefazolin (Urine) >=32 R Cefepime 16 R Ceftriaxone >=64 R Ciprofloxacin >=4 R Ertapenem <=0.12 S Gentamicin <=1 S Nitrofurantoin <=16 S Trimethoprim/Sulfamethoxazole <=20 S Collected: 10/08/24-UNK Status: COMP Req#: [id number] Received: 10/08/24 Source: [facility] Sp Desc: Clean Cat Subm Dr: Alisha Herrera Ordered: Urine Culture Procedure Result Verified Urine Culture Final 10/11/24 Organism 1 Klebsiella oxytoca Quant > 100,000 cfu/mL Organism 2 Citrobacter freundii Quant > 100,000 cfu/mL Kleb oxyto C freundii M.I.C. RX M.I.C. RX --------- --- --------- --- Ampicillin >=32 R Cefazolin 8 R >=32 R Cefepime <=0.12 S <=0.12 S Ceftriaxone <=0.25 S <=0.25 S Ciprofloxacin <=0.06 S <=0.06 S Gentamicin <=1 S <=1 S Nitrofurantoin 32 S <=16 S Trimethoprim/Sulfamethoxazole <=20 S <=20 S Date of Service: 10/06/24 EXAMINATION: US KIDNEY BILATERAL HISTORY: N40.0 - Benign prostatic hyperplasia, calculus of kidney TECHNIQUE: Real-time grayscale ultrasound imaging of the kidneys was performed and images were reviewed. COMPARISON: Comparison is made with the prior examination dated 11/11/2023. FINDINGS: Right kidney: The right kidney measures 10.2 x 4.9 x 5.4 cm. Renal parenchymal echotexture and thickness are normal. There are no masses. There is no hydronephrosis or renal calculi. Left Kidney: The left kidney measures 11.1 x 6.7 x 5.4 cm. Renal parenchymal echotexture and thickness are normal. There are no masses. There is no hydronephrosis or renal calculi. IMPRESSION: Unremarkable renal ultrasound. Date of Service: 11/11/23 Now your urine bladder EXAMINATION: US RETROPERITONEAL COMPLETE (RENAL) CLINICAL INFORMATION: Nocturia. Bladder outlet 0 was bladder or there are 1 weight and maybe a little bit more urinate while COMPARISON: X-ray abdomen KUB 07/31/2023. TECHNIQUE: Real-time imaging of the kidneys and bladder. FINDINGS: RIGHT KIDNEY: 11.5 x 5.2 x 4.5 cm (SAG x AP x TRV). The kidney is normal in size, contour, and echogenicity. Renal cortical thickness is normal. No calculi or focal parenchymal lesions. No hydronephrosis. LEFT KIDNEY: 10.7 x 6.3 x 5.5 cm (SAG x AP x TRV). The kidney is normal in size, contour, and echogenicity. Renal cortical thickness is normal. No calculi or focal parenchymal lesions. No hydronephrosis. BLADDER: Distended urinary bladder at 390 mL prevoid. Two attempts at voiding. Post void residual 313 mL. ADDITIONAL FINDINGS: Prostate measures 34 mL IMPRESSION: Enlarged prostate measuring 34 mL. No hydronephrosis. Distended urinary bladder with prevoid volume 390 mL and post void (2 attempts) residual volume 313 mL. Assessment & Plan Assessment & Plan (1) Nocturia: Comment: Has establish care with Urology. Code(s): R35.1 - Nocturia Category: Medical (2) History of kidney stones: Code(s): Z87.442 - Personal history of urinary calculi Category: Medical (3) Urinary frequency: Comment: Extensive workup by Urology in [facility] tried multiple medications unsuccessfully Code(s): R35.0 - Frequency of micturition Category: Medical (4) Acute urinary retention: Code(s): R33.8 - Other retention of urine Category: Medical (5) BPH (benign prostatic hyperplasia): Code(s): N40.0 - Benign prostatic hyperplasia without lower urinary tract symptoms Category: Medical Plan Plan- Green light laser. Orders: Orders AMB Urinalysis Automated 01/17/25 Z13.9 - Encounter for screening, unspecified AMB Cystoscopy 01/17/25 R35.0 - Frequency of micturition, N40.0 - Benign prostatic hyperplasia without lower urinary tract symptoms, R33.8 - Other retention of urine Patient Instructions: The patient had an opportunity to ask questions regarding treatment plan. The patient expressed understanding and agreement with the above treatment plan. The patient is aware they should contact our office by phone for worsening of their current condition or the appearance of new symptoms. Compliance is encouraged with any medications and followup testing that is ordered. It is a privilege to be allowed the opportunity to participate in the urologic care of your patient. If you have any questions or concerns regarding treatment for the above conditions please do not hesitate to contact me. The office telephone contact is [phone]. This note is constructed in part using voice recognition software. While every effort has been made to ensure accuracy replenishment merchandising associate errors may have been included. Yours sincerely, Hilton Rivas MD Coding Level of Care Code Procedure Only Diagnoses Nocturia R35.1 History of kidney stones Z87.442 Urinary frequency R35.0 Acute urinary retention R33.8 BPH (benign prostatic hyperplasia) N40.0 CPT Codes Cystoscopy - CPT: [id number] ([id number])
== END 2025-01-17 10:47 | disposition home or self-care (01) ==
LOC: HO.HUSH 09:21
PROVIDERS: PCP Internal Medicine; Visit Provider Urology
DX: R35.1 Nocturia (principal); R35.0 Frequency of micturition; N40.0 Benign prostatic hyperplasia without lower urinary tract symptoms; R33.8 Other retention of urine; Z87.442 Personal history of urinary calculi
CPT/HCPCS: 52000

== ENCOUNTER → 2025-01-17 09:21 | Outpatient (BNVA) | payer MEDICARE, SELFPAY | PROVIDERS: PCP Internal Medicine; Visit Provider Urology | DX: N40.1 Benign prostatic hyperplasia with lower urinary tract symptoms (principal); R35.1 Nocturia; R33.8 Other retention of urine; R35.0 Frequency of micturition; Z87.442 Personal history of urinary calculi | CPT/HCPCS: 52000; 81003 ==

== ENCOUNTER 2025-03-30 08:20 | Outpatient (AMB) | payer MEDICARE, SELFPAY ==
--- NOTE | 2025-03-30 08:28 | MHC.OFFVIS ---
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 Patient was recently seen at [facility], he was referred to attend physical therapy for the right knee. History of 3 right knee arthroscopy surgeries that were performed in [place], dates ranging from [id number]. Today patient reports bilateral knee pain with the right knee beign the worse. States his knee discomfort presented about 4-5 months ago, however his pain has improved since. He states that he prefers his orthopedic care be in [place]. He expresses that his right knee pain seems to be chronic, and his left knee feels better with swimming. No other treatments. 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 He states he will try to stand and he has difficulty. He states over the summer he has been swimming and the knees have improved somewhat. He was seen at [facility] and was told he has OA. He was recommended to PT but has not yet been. No injections. He states prior to the knees feeling better, he was dong a lot of yard work which may have caused the increased pain. He has mild discomfort with stairs, no sensation of giving out. He states he has had 3 surgeries on rgith knee for menicus injuries. 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: House Alcohol intake: current Alcohol intake frequency: does not drink Comment: 1 to 2 drinks per week Patient Tobacco Use Status: Never used Tobacco e-Cigarette/Vaping Use: Never Used Second Hand Smoke Exposure: No service: No Current occupational status: retired Cognitive needs: No Hearing needs: No Vision needs: Yes Review of Systems Const All systems reviewed & are unremarkable except as noted in HPI and below Physical Exam Vital Signs: BMI result Body Mass Index 25.8 Const General: cooperative and no acute distress Orientation/consciousness: patient oriented x3 Resp Effort & Inspection: normal respiratory effort and able to speak in complete sentences Cardio Peripheral pulses: Peripheral pulses 2+ throughout Neuro General: patient oriented x3 Extrem Other: Right knee is normal to inspection he has no effusion. Range of motion is 0-120 degrees with no crepitus. Mild retropatellar tenderness. Calf is supple and nontender neurovascularly intact. Results Reviewed Results Reviewed: X-rays of the right knee obtained in the office today and reviewed by me show medial joint space narrowing with valgus deformity. Patellofemoral arthritis. Assessment & Plan Assessment & Plan (1) Osteoarthritis of right knee: Code(s): M17.11 - Unilateral primary osteoarthritis, right knee Category: Medical Plan: We discussed options today which includes physical therapy to strengthen and condition the surrounding muscles through the knee. He states he will not be able to start until June therefore the order was dated for June 20. I gave him the contact information to call and make an appointment. I did offer him a Genumed knee brace which she declined at this time. If he changes his mind he will contact the office to obtained. For occasional flare-ups he was advised to take Aleve twice a day for 2 weeks but if this is not helpful he can contact our office for a steroid injection. Patient is content with the plan and will follow up as needed. Orders: Orders PT Evaluation and Treatment 06/20/25 M17.11 - Unilateral primary osteoarthritis, right knee XR knee RT 3V Today M17.11 - Unilateral primary osteoarthritis, right knee Coding Level of Care Code New Pt Level 3 (80361) Complex EM visit Add On G2211 Diagnoses Osteoarthritis of right knee M17.11
[2025-03-30 08:36] VITALS: BMI 25.8
== END 2025-03-30 09:12 | disposition home or self-care (01) ==
LOC: HO.HOS 08:21
PROVIDERS: PCP Internal Medicine; Visit Provider Physician Assistant
DX: M17.11 Unilateral primary osteoarthritis, right knee (principal)
CPT/HCPCS: 99203; G2211

== ENCOUNTER → 2025-03-30 08:23 | Outpatient (BNV) | payer MEDICARE, SELFPAY | PROVIDERS: Visit Provider Radiology Diagnostic Radiology | DX: M17.11 Unilateral primary osteoarthritis, right knee (principal) | CPT/HCPCS: 73562 ==

== ENCOUNTER 2025-03-30 09:48 | Outpatient (REF) | payer MEDICARE, SELFPAY ==
--- NOTE | ~2025-03-30 | XR_ITS ---
EXAMINATION: XR KNEE 3 VIEWS RIGHT HISTORY: M17.11 - Unilateral primary osteoarthritis, right knee COMPARISON: There are no prior studies available for comparison. FINDINGS: Standing AP views of both knees and additional lateral and sunrise patellar views of the right knee are submitted. Osseous mineralization is normal. There is no fracture or dislocation. There is moderate to severe osteoarthritis of the medial compartment, with joint space narrowing and osteophyte formation. Milder changes are noted involving the patellofemoral compartment. The soft tissues are unremarkable. There is no joint effusion. XR/XR knee RT 3V IMPRESSION: Osteoarthritis of the right knee as described. Electronically signed by: Dionicio Jensen MD 03/30/2025 08:36 AM EDT
== END 2025-03-30 09:49 | disposition home or self-care (01) ==
LOC: HO.HOSX 09:48
PROVIDERS: Visit Provider Physician Assistant
DX: M17.11 Unilateral primary osteoarthritis, right knee (principal)
CPT/HCPCS: 73562; 99202

== ENCOUNTER 2025-03-31 11:38 | Outpatient (REF) | payer MEDICARE, SELFPAY ==
--- NOTE | 2025-03-31 11:46 | ECG_ITS ---
Test Reason : pre op r33.8 Blood Pressure : */* mmHG Vent. Rate : 49 BPM Atrial Rate : 49 BPM P-R Int : 168 ms QRS Dur : 98 ms QT Int : 444 ms P-R-T Axes : 54 26 11 degrees QTcB Int : 401 ms Sinus bradycardia Otherwise normal ECG No previous ECGs available Referred By: Hilton Rivas Electronically Signed By: NOAH FRANCO MD
[2025-03-31 12:51] LABS: Alanine Aminotransferase 18 U/L (0-40); Albumin Level 4.2 g/dL (3.5-5.0); Alkaline Phosphatase 47 U/L (39-117); Anion Gap 9 (12-20); Aspartate Amino Transferase 35 U/L (5-37); Blood Urea Nitrogen 22 mg/dL (9-16); Calcium 8.9 mg/dL (8.4-10.2); Carbon Dioxide 28 mmol/L (22-29); Chloride 108 mmol/L (96-108); Cholesterol 180 mg/dL (<200); Estimated Glomerular Filt Rate > 60; HDL Cholesterol 59 mg/dL (>40); Potassium 4.3 mmol/L (3.3-5.1); Sodium 141 mmol/L (135-145); Total Protein 6.8 g/dL (6.5-8.0); Triglycerides 33 mg/dL (<150)
== END 2025-03-31 11:39 | disposition home or self-care (01) ==
LOC: HO.LAB 11:38
PROVIDERS: PCP Internal Medicine; Referring Provider Urology; Visit Provider Urology
DX: Z01.810 Encounter for preprocedural cardiovascular examination (principal); N40.1 Benign prostatic hyperplasia with lower urinary tract symptoms; R33.8 Other retention of urine; R35.0 Frequency of micturition; N20.0 Calculus of kidney; E78.5 Hyperlipidemia, unspecified; I10 Essential (primary) hypertension
CPT/HCPCS: 36415; 80053; 80061; 93005

== ENCOUNTER → 2025-03-31 11:46 | Outpatient (BNV) | payer MEDICARE, SELFPAY | PROVIDERS: PCP Internal Medicine; Referring Provider Urology; Visit Provider Internal Medicine Cardiovascular Disease | DX: R00.1 Bradycardia, unspecified (principal) | CPT/HCPCS: 93010 ==

== ENCOUNTER 2025-04-11 07:29 | Day surgery (SDC) | payer MEDICARE, SELFPAY ==
[2025-04-07 10:07] VITALS: BMI 25.8
--- NOTE | 2025-04-07 10:42 | P.CONAN_ITS ---
Documented by User: Yadi Klein NP 04/07/25 10:44 HPI - Anesthesia Eval Consult details Narrative: 64yo M for Laser Ablation Prostate w/Green Light PMFSH Active Problems Active Problems: All Active Problems Osteoarthritis of right knee (Acute) Hyperlipemia (Acute) Nephrolithiasis (Acute) BPH (benign prostatic hyperplasia) (Acute) Acute urinary retention (Acute) Dysplastic nevus (Acute) Vitamin D deficiency (Acute) Annual physical exam (Acute) Hx of colonoscopy (Acute) Hypertension (Acute) Encounter for physical examination (Acute) Urinary frequency (Acute) History of kidney stones (Acute) Nocturia (Acute) Low back pain (Acute) Past Medical History Medical History Hyperlipemia Hypertension BPH (benign prostatic hyperplasia) Strain of left biceps Left rotator cuff tear Biceps muscle tear Hearing loss in right ear Family History Family History Brother S/P CABG x 4, Onset Age: 50 Brother Colon polyps Surgical History Surgical History S/P right rotator cuff repair H/O lateral meniscus repair of right knee Social History Social History Household Members Other:: , retired, plays golf, no children, worked for [employer] 40 yrs Housing: House Alcohol intake: current Alcohol intake frequency: does not drink Comment: 1 to 2 drinks per week Patient Tobacco Use Status: Never used Tobacco e-Cigarette/Vaping Use: Never Used Second Hand Smoke Exposure: No Use of substances other than those prescribed or required for medical reasons: No Advance Directives: No Advance Directives Information Provided: Yes service: No Current occupational status: retired Cognitive needs: No Hearing needs: No Vision needs: Yes Meds Allergies Allergy/AdvReac Type Severity Reaction Status Date / Time No Known Allergies Allergy Verified 03/30/25 08:43 Exam Height,Weight and Vital Signs: Height 6 ft Weight 86.183 kg Pertinent Lab Results Pertinent Lab Results: Laboratory Tests 10/07/24 03/31/25 19:43 11:52 WBC 6.4 Hgb 13.9 L Hct 39.8 L Plt Count 248 Sodium 141 Potassium 4.3 Chloride 108 Carbon Dioxide 28 BUN 22 H Creatinine 1.00 Assessment and Plan Assessment Anesthesia Assessment: Chart Reviewed Documented by User: Sanjiv Blount MD 04/11/25 08:36 [facility] Past Medical History Medical History Hyperlipemia Hypertension BPH (benign prostatic hyperplasia) Strain of left biceps Left rotator cuff tear Biceps muscle tear Hearing loss in right ear Functional capacity: independent ambulation Family History Family History Brother S/P CABG x 4, Onset Age: 50 Brother Colon polyps Family history of problems with anesthesia: No Surgical History Surgical History S/P right rotator cuff repair H/O lateral meniscus repair of right knee History of Problems with Anesthesia: No Social History Social History Household Members Other:: , retired, plays golf, no children, worked for [employer] 40 yrs Housing: House Alcohol intake: current Alcohol intake frequency: does not drink Comment: 1 to 2 drinks per week Patient Tobacco Use Status: Never used Tobacco e-Cigarette/Vaping Use: Never Used Second Hand Smoke Exposure: No Use of substances other than those prescribed or required for medical reasons: No Advance Directives: No Advance Directives Information Provided: Yes service: No Current occupational status: retired Cognitive needs: No Hearing needs: No Vision needs: Yes Meds Allergies Allergy/AdvReac Type Severity Reaction Status Date / Time No Known Allergies Allergy Verified 03/30/25 08:43 Exam Airway Mallampati Class: II TM Dist: >3cm Neck ROM: Full Heart: RRR Lungs: CTA Assessment and Plan Assessment Anesthesia Assessment: Anesthesia Plan Discussed Final Anesthetic Review Family History of Problems with Anesthesia: No History of Problems with Anesthesia: No NPO: Yes ASA Class: II Patient Risk: Low Procedure Risk: Low Anesthetic Plan Anesthetic Plan: GA Disposition: Standard PACU
[2025-04-11] VITALS (8 sets, daily range): BP systolic 136–166; BP diastolic 62–88; PULSE 51–70; RESP 16; TEMP 36.1–36.6; O2SAT 100; BMI 24.4
[2025-04-11] MEDS: Lactated Ringers 1,000 ML 100 ML IVCONT (08:00)
--- NOTE | 2025-04-11 08:38 | MHC.SHP ---
Pre-Procedural Eval Section A - 24 Hr Update-Section A only Date of Service: 04/11/25 The patient is an INPATIENT: No Changes since office visit: No Cold of Flu in the past 2 weeks, No New Medical Problems, No Changes in Medication and No Patient answered all questions The patient has been examined within 24 hours of the surgical procedure. The History & Physical has been completed within 30 days and I have reviewed it.: No Section B - Complete if H&P > 30 days Chief Complaint: Benign prostatic hyperplasia without lower urinary Details of Present Illness: Prior procedure 15 years ago. Here for GreenLight laser prostatectomy Relevant Family History (Specify if Yes): No Relevant Social History: None Present Medications: see Short Stay Collaborative assessment Medical History: No relevant PMH History of Previous Operations: Relevant previous surgery/procedure and date(s) Allergies: Allergies Allergy/AdvReac Type Severity Reaction Status Date / Time No Known Allergies Allergy Verified 03/30/25 08:43 Review of Systems Sugical H&P ROS: Negative: Constitution, Cardiovascular, Respiratory, Neurological, Psychiatric, Hem-Onc, Allergic/Immunologic, Gastrointestinal, Genitourinary, Musculoskeletal, Integumentary, Endocrine and Eyes/Ears/Nose/Throat Exam Surgical H&P Exam: Normal: HEENT, Normal: Heart, Normal: Lungs, Normal: Extremities, Normal: Abdomen, Normal: Skin and Normal: Neurological Plan Diagnosis/Plan: Unchanged I have reviewed the history and physical and performed a pertinent physical examination on my patient. No changes have occurred unless specified. Time Spent With Patient Time: Total time managing care of this patient today ____ minutes.
--- NOTE | 2025-04-11 09:42 | P.OP_ITS ---
Operative Note Operative Note Date of Service: 04/11/25 Narrative: PreOperative Diagnosis: Bladder outlet obstruction Post Operative Diagnosis: Bladder outlet obstruction, interstitial cystitis Procedure: GreenLight Laser Enucleation of the prostate CPT 74764 Surgeon: Dr Teodoro Zaomra Anesthesia: General History of bladder outlet obstruction. Treated with alpha-konrad and other medications. Still with symptoms. On cystoscopy in office has tight bladder neck with median lobe hypertrophy. Recommendation for prostate procedure with laser enucleation of prostate. Risks and benefits have been discussed. Focus was placed on development of retrograde ejaculation which is a normal part of this procedure. Procedure: After informed consent was verified the patient was brought to the operating room and placed in a supine position. Anesthesia was administered per protocol. Patient was placed in modified dorsal lithotomy position and prepped and draped in a sterile fashion. Safety pause time-out was confirmed. Antibiotics have been given. A Twenty-four Amharic laser cystoscope was inserted per urethra. No abnormalities were found of the anterior and bulbar urethra. The prostatic urethra shows combination of median lobe hypertrophy and tight bladder neck. The bladder was examined and both ureteric orifices were seen in their normal positions away from the area of interest. Bladder trabeculation grade 1/2 - noted throughout the case glomerulations developed within the bladder wall. Hig hly suggestive of interstitial cystitis type bladder wall picture. Using a GreenLight laser with initial settings of 80 shook incisions were made at the 5 and 7 o'clock position. The incisions were taken down from the bladder neck down to the area just proximal of the veru. These were gradually deepened in order to define the lateral aspects of the median lobe area. The deep boundary of enucleation was defined by the prostate surgical capsule. Once clearly defined the grooves were extended in the lateral directions in order to create a deep groove. The median lobe was then ablated and enucleated tissue released into the bladder with the laser power increased to 120 W. The median lobe was divided into and each half was enucleated. Once the median lobe area had been cleared, attention was directed to the lateral lobes. Starting with the patient's left lateral lobe. First the 05:00 o'clock groove was further developed. This was moved in the lateral direction to undermine the tissue on the lateral side running from the bladder neck to the prostate apex. The ureteric orifice was used to guide incisions. The laser fiber was placed at the 1 o'clock position and a secondary groove was developed down to the level of prostatic capsule. The creation of a second deep groove defined a segment of intervening tissue similar to a slice of orange. At the apex of the prostate the laser was used to vertically link the two grooves releasing the intervening tissue and creating a segment of tissue. This tissue was then removed with a combination of enucleation and ablation working from the apex toward the bladder neck. A similar procedure was repeated on the patient's right-hand side. The only differences being the position of the lateral groove at he 7 o'clock position and the secondary groove at the 11 o'clock position, Otherwise the procedure was developed in a mirror fashion. Laser power increased to 130 throughout this component of the procedure. The tissue appeared to be denser than typical and required higher energy to ablate/enucleate. After the majority of tissue had been debulked remnant tissue was ablated with the side fire laser and the curve of the prostate followed up each side wall clearly defining the anterior remnant strip that remained between the 11 and 1 o'clock positions. At completion debris and pieces of prostate were removed from the bladder with irrigation. Both ureteric orifices were reviewed again in shown to be patent in away from any areas of energy damage. The apical area was reviewed and any stray mucosal ooze was controlled. A 22 Amharic 30 cc balloon Root catheter was placed into the bladder using a flexible stylet. Clear efflux was obtained upon irrigation with a Marisela piston syringe. 30 cc was placed in the balloon and gentle traction was placed. A snap was used to hold tension on the catheter to control bleeding during patient moved and transported. A drainage bag was placed. Once transportation is complete to the PACU the snap will be removed. The patient tolerated the procedure well, he was extubated in the operating and transferred in a stable condition to the recovery area. Total Power 114 kJ Lasing time 16:12 Pathology: Prostate tissue Drains: Root catheter
== END 2025-04-11 11:06 | disposition home or self-care (01) ==
PROVIDERS: PCP Internal Medicine; Visit Provider Urology
PROC: (CPT 52648; principal; 2025-04-11 09:00)
DX: N40.1 Benign prostatic hyperplasia with lower urinary tract symptoms (principal); N32.0 Bladder-neck obstruction; R35.1 Nocturia; R35.0 Frequency of micturition; N30.10 Interstitial cystitis (chronic) without hematuria; N32.89 Other specified disorders of bladder; R33.8 Other retention of urine; Z87.442 Personal history of urinary calculi; I10 Essential (primary) hypertension; E78.5 Hyperlipidemia, unspecified; H91.91 Unspecified hearing loss, right ear; Z79.899 Other long term (current) drug therapy; Z98.890 Other specified postprocedural states
CPT/HCPCS: 52649; 88305; J1100; J1956; J2003; J2250; J2405; J2704; J3010

== ENCOUNTER → 2025-04-11 07:29 | Outpatient (BNV) | payer MEDICARE, SELFPAY | PROVIDERS: PCP Internal Medicine; Visit Provider Urology | DX: N32.0 Bladder-neck obstruction (principal) | CPT/HCPCS: 52649 ==

== ENCOUNTER → 2025-04-13 08:23 | Outpatient (BNVA) | payer MEDICARE, SELFPAY | PROVIDERS: PCP Internal Medicine; Visit Provider Urology | DX: N40.0 Benign prostatic hyperplasia without lower urinary tract symptoms (principal); Z98.890 Other specified postprocedural states | CPT/HCPCS: 51700; 51798 ==

== ENCOUNTER 2025-05-09 13:03 | Outpatient (REF) | payer MEDICARE, SELFPAY ==
[2025-05-09 14:05] LABS: Appearance Urine Clear; Glucose Urine UA Negative (Negative); PH 5.5 (5.0-9.0); Specific Gravity - Urine 1.025 (1.005-1.025); UMIC TRIGGER UA YES
== END 2025-05-09 13:04 | disposition home or self-care (01) ==
LOC: HO.HMGCLDS 13:03
PROVIDERS: PCP Internal Medicine; Visit Provider Urology
DX: R35.0 Frequency of micturition (principal)
CPT/HCPCS: 81001; 87086

== ENCOUNTER 2025-05-12 09:11 | Outpatient (AMB) | payer MEDICARE, SELFPAY ==
[2025-05-12 09:25] VITALS: BP 126/82; PULSE 51; RESP 17; TEMP 36.7; O2SAT 100; BMI 24.7
--- NOTE | 2025-05-12 09:25 | MHC.PC.OV ---
Vital Signs 05/12/25 09:25 Height 6 ft Weight 182 lb BMI 24.7 BP 126/82 Blood Pressure Location Lt brachial Position Sitting Respiration 17 Pulse 51 Pulse Source Pulse Oximeter Temp 98.0 F Temp Source Oral Pulse Oximetry (%) 100 Oxygen Delivery Method Room Air Intake Visit Reasons: PE - see comments Intake Note: Pt is here today for PE. Allergies No Known Allergies Allergy (Verified 05/12/25 09:26) Medication List - Last Reconciled 05/12/25 by Pattie Sierra MD finasteride 5 mg PO DAILY tamsulosin (Flomax) 0.4 mg PO BEDTIME valsartan 320 mg PO DAILY Tobacco use date assessed: 05/12/25 Fall risk assessment: No Falls in past year Last assessed Fall Risk: 05/12/25 Dental Screening Dental Screen Date: 08/30/24 HPI PE - see comments HPI Details Pt presents for PE. Pt had TURP [address] Zamora. Pt reports urgency to urinate and slight dysuria on and off since his surgery. Patient had UA and urine culture checked which were negative for the infection. He has an appointment with urologist next week [facility] Medical History (Updated 05/12/25 @ 11:36 by Pattie Sierra MD) Hyperlipemia Hypertension BPH (benign prostatic hyperplasia) Strain of left biceps Left rotator cuff tear Biceps muscle tear Hearing loss in right ear Surgical History History of prostate surgery S/P right rotator cuff repair H/O lateral meniscus repair of right knee Family History Brother S/P CABG x 4, Onset Age: 50 Brother Colon polyps Social History Household Members Other:: , retired, plays golf, no children, worked for [employer] 40 yrs Housing: House Alcohol intake: current Alcohol intake frequency: does not drink Comment: 1 to 2 drinks per week Patient Tobacco Use Status: Never used Tobacco e-Cigarette/Vaping Use: Never Used Second Hand Smoke Exposure: No service: No Current occupational status: retired Cognitive needs: No Hearing needs: No Vision needs: Yes Questionnaire PHQ-9 Over the last 2 weeks, how often have you been bothered by any of the following problems? 1. Little interest or pleasure in doing things: not at all 2. Feeling down, depressed, or hopeless: not at all 3. Trouble falling or staying asleep, or sleeping too much: not at all 4. Feeling tired or having little energy: not at all 5. Poor appetite or overeating: not at all 6. Feeling bad about yourself - or that you are a failure or have let yourself or your family down: not at all 7. Trouble concentrating on things, such as reading the newspaper or watching television: not at all 8. Moving or speaking so slowly that other people could have noticed. Or the opposite - being so fidgety or restless that you have been moving around a lot more than usual: not at all 9. Thoughts that you would be better off or of hurting yourself in some way: not at all Total score: 0 Depression Screening Interpretation: Negative Depression Screening Done: Yes Source: Developed by Drs. Dionicio Marino, Ashley Alford, Mckinley Dominguez and colleagues, with an educational magda from [employer]. Thrive Questionnaire Date Thrive assessed: 08/23/24 I am a: Patient What is your living situation today?: I have a steady place to live Within the past 12 months, did the food you bought not last and you didn't have the money to get more?: Never true Within the past 12 months, did you worry whether your food would run out before you got money to buy more?: Never true Do you have trouble paying for medicines?: No Do you have trouble getting transportation to medical appointments?: No Do you have trouble paying your heating and electricity bill?: No Do you have trouble taking care of your child, family member or friend?: No Do you have trouble with day-to-day activities such as bathing, preparing meals, shopping, managing finances, etc.?: No Are you currently unemployed and looking for a job?: No Are you interested in more education?: No Please select the resources that you would like help with: None Currently or been in a relationship where the following occur: No concerns reported THRIVE Score: 0 EVERETT-7 AMB Questionnaire EVERETT-7 Date EVERETT - 7 assessed: 08/30/24 Source: Developed by Drs. Dionicio Marino, Ashley Alford, Mckinley Dominguez and colleagues, with an educational magda from [employer]. Review of Systems Const All systems reviewed & are unremarkable except as noted in HPI and below Eyes Reports no additional complaints ENT Reports no additional complaints Card Reports no additional complaints Resp Reports no additional complaints GI Reports no additional complaints Reports no additional complaints Physical exam (Primary Care) Vital Signs: Last Vital Signs Temp 98.0 F 05/12/25 09:25 Pulse 51 05/12/25 09:25 Resp 17 05/12/25 09:25 BP 126/82 05/12/25 09:25 Pulse Ox 100 05/12/25 09:25 Oxygen Delivery Method Room Air 05/12/25 09:25 BMI result Body Mass Index 24.7 Tobacco/Smoking Status: Tobacco use Status Tobacco use date assessed 05/12/25 05/12/25 09:30 Patient Tobacco Use Status Never used Tobacco 05/12/25 09:30 e-Cigarette/Vaping Use Never Used 05/12/25 09:30 PHQ-9: PHQ-9 Score PHQ-9: Total score 0 05/12/25 09:38 Depression Screening Interpretation: Negative Thrive Assessment: Date of Thrive Assessment Date Thrive assessed 08/23/24 05/12/25 09:30 Currently or been in a relationship where the following occur: No concerns reported Const General: no acute distress HENMT Head: Yes normal to inspection Ears: TM's normal bilaterally Face and sinus: Yes normal facial exam Mouth: Normal oral and palatal mucosa present Throat: Yes posterior oropharynx normal Eyes General: appearance normal, both eyes and all related structures Neck Neck: Yes no lymphadenopathy and Yes supple Chest Chest palpation & inspection: normal inspection of the chest Resp Effort & Inspection: normal respiratory effort Auscultation: clear to auscultation bilaterally Cardio Rhythm: regular rhythm Heart sounds: S1 normal heart sound present and S2 normal heart sound present GI Inspection: Yes normal to inspection Palpation (GI): Soft to palpation Percussion: Yes normal to percussion Auscultation: normal bowel sounds Coding Level of Care Code Est Pt Prev Care >65y(96024) Diagnoses Hx of colonoscopy Z98.890 Hyperlipemia E78.5 Hypertension, unspecified type I10 Hypertension type: unspecified BPH (benign prostatic hyperplasia) N40.0 Annual physical exam Z00.00 Assessment & Plan Assessment & Plan (1) Hx of colonoscopy: Comment: 04/2021 2 polyps, in [facility], repeat 5 yrs Code(s): Z98.890 - Other specified postprocedural states Category: Surgical Plan: Patient is due for colonoscopy next year (2) Hyperlipemia: Code(s): E78.5 - Hyperlipidemia, unspecified Category: Medical Plan: Continue statin (3) Hypertension: Code(s): I10 - Essential (primary) hypertension Category: Medical Qualifiers: Hypertension type: unspecified Qualified Code(s): I10 - Essential (primary) hypertension Plan: Blood pressure is not well controlled on losartan and valsartan 320 mg will be started instead. Patient will follow-up in 1 month (4) BPH (benign prostatic hyperplasia): Comment: s/p TURP 03/[address] Zamora Code(s): N40.0 - Benign prostatic hyperplasia without lower urinary tract symptoms Category: Medical Plan: Follow-up with urology (5) Annual physical exam: Code(s): Z00.00 - Encounter for general adult medical examination without abnormal findings Category: Medical Plan: Well-balanced diet regular physical activity discussed with the patient. Orders: Orders Complete Blood Count Auto Diff 1 Month I10 - Essential (primary) hypertension Comprehensive [place]. Panel Fast 1 Month I10 - Essential (primary) hypertension Medications: New valsartan 320 mg PO DAILY 90 tabs 0RF Discontinued losartan Discontinued Reason: Doctor's Order 100 mg PO DAILY 90 tabs 1RF
== END 2025-05-12 11:37 | disposition home or self-care (01) ==
LOC: HO.HMCC 09:11
PROVIDERS: PCP Internal Medicine; Visit Provider Internal Medicine
DX: Z00.00 Encounter for general adult medical examination without abnormal findings (principal); E78.5 Hyperlipidemia, unspecified; I10 Essential (primary) hypertension; N40.0 Benign prostatic hyperplasia without lower urinary tract symptoms; Z98.890 Other specified postprocedural states

== ENCOUNTER → 2025-05-12 09:11 | Outpatient (BNVA) | payer MEDICARE, SELFPAY | PROVIDERS: PCP Internal Medicine; Visit Provider Internal Medicine | DX: Z00.00 Encounter for general adult medical examination without abnormal findings (principal); R30.0 Dysuria; N40.1 Benign prostatic hyperplasia with lower urinary tract symptoms; R39.15 Urgency of urination; E78.5 Hyperlipidemia, unspecified; I10 Essential (primary) hypertension; Z98.890 Other specified postprocedural states | CPT/HCPCS: 96127; 99397 ==

== ENCOUNTER 2025-05-20 13:07 | Outpatient (AMB) | payer MEDICARE, SELFPAY ==
--- NOTE | 2025-05-20 13:07 | A.OFFVIS_ITS ---
Intake Visit Reasons: Greenlight follow up Intake Note: Patient is present for Green Light follow up Urology Medication:FINASTERIDE,TAMSULOSIN Antibiotic Allergy:NONE Blood Thinner:NONE PVR:0 mls Behaviour Support Teacher Required: No Accompanied by: Self / Same As Patient Allergies No Known Allergies Allergy (Verified 05/20/25 13:08) HPI Comments Details: Anmol is a pleasant male. He is a patient of Dr. Sierra. He seen for the following urologic conditions - lower urinary tract symptoms GreenLight laser follow-up Performed 04/14 PVR 0 cc Has urgency and frequency post surgery Initiate oxybutynin for 2 months Follow-up three-month time with PSA Does notice improved emptying and improved flow 01/17/25--Here for cystoscopy. Cystoscopy findings: prostatic urethra trilobar enlargement, prominent median lobe, obstructive bulbous urethra WNL, no suspicious bladder lesions visualized Plan- Green light laser. 12/06/24--Anmol is a 64-year-old male who has been seen in the past for voiding dysfunction. He has history of prostate procedure over 15 years ago for BPH which he states did not work. He was last here in the office November of 2023 at [facility] time workup was done including urodynamics which noted sensory urgency. He was treated with combination therapy, an anticholinergic and alpha-konrad. He presents today due to ER admission for urinary retention and UTI. He states initially he was told that he did not have a UTI a Root catheter was placed. After few days he had chills and went back to the emergency room and received antibiotics. The antibiotics did not seem to work and he received another set of antibiotics at did work. Urine culture was sent on 10/08/24 resulting Klebsiella and Citrobacter, repeat urine culture on 10/18/2024 was E coli. The patient was started on Proscar and is continuing tamsulosin he states that his urine flow has improved. I want him to continue the Proscar and tamsulosin. I have discussed further evaluation with office cystoscopy. 12/05/23--Here for CMG/Urodynamics. Completed a 3 day voiding diary voids were between 50 and at the highest 200 mL average volume was 90 mL per void. Freque ncy on average every hour to every 2-1/2 hours. CMG parameters detailed below. Interpretation: During the filling phase 1st sensation, was 49; sensory urgency was noted, first desire was 66 mL and strong desire was noted at 92 mL significant detrusor contractions were not noted during the filling phase bladder capacity was less than average, the patient felt that he was at capacity at 217 mL. He was unable to void with urethral catheter in place. He voided 125 mL after catheters were removed. Leakage was not observed during cough. Findings consistent with less than average functional bladder capacity, and sensory urgency. EMG- Appropriate changes in the waveforms were noted through out the study. I have discussed treatment options to include therapy for improving bladder compliance and outlet relaxation. The patient states he had a procedure on the prostate over 10 years ago. I have reviewed medication therapies as well as Botox bladder injection and sacral neuromodulation. The patient is agreeable to trial an anticholinergic and alpha-konrad. Myrbetriq 50 mg qday, tamsulosin daily in the evening. Risks and benefits discussed including but not limited to dizziness and retrograde ejaculation. Discussed renal ultrasound 11/11/2023- kidneys within normal limits large postvoid residual, estimated prostate volume 34 mL. 10/23/23--Frankie is a 62-year-old male who is here with complaints of urinating frequently especially at nighttime. He states that he has seen urologist in the past dating back to about 10 years ago. He states that in the past he had a procedure on the prostate. He has been told that his prostate is not enlarged. He is up at night to urinate every 1-1/2-2 hours. He states he also goes frequently during the day. He admits to not drinking a lot of water, however he denies excessive caffeine intake. He denies history of nicotine use. He states that he thinks he passed a kidney stone in the past. AUA symptom score 30. He has not taking any prescribed medication. Labs reviewed-PSA 08/15/2023--0.81 ng/mL. Bladder scan PVR 27 mL. Urinalysis 0 leukocytes, 0 blood. Prostate exam-nontender smooth. Plan discussed voiding diary for 3 days, urodynamics, ultrasound retroperitoneum. [facility] Medical History (Updated 05/12/25 @ 11:36 by Pattie Sierra MD) Hyperlipemia Hypertension BPH (benign prostatic hyperplasia) Strain of left biceps Left rotator cuff tear Biceps muscle tear Hearing loss in right ear Surgical History History of prostate surgery S/P right rotator cuff repair H/O lateral meniscus repair of right knee Family History Brother S/P CABG x 4, Onset Age: 50 Brother Colon polyps Social History Household Members Other:: , retired, plays golf, no children, worked for [employer] 40 yrs Housing: House Alcohol intake: current Alcohol intake frequency: does not drink Comment: 1 to 2 drinks per week Patient Tobacco Use Status: Never used Tobacco e-Cigarette/Vaping Use: Never Used Second Hand Smoke Exposure: No service: No Current occupational status: retired Cognitive needs: No Hearing needs: No Vision needs: Yes Review of Systems Const Denies chills and Denies fever(s) Card Reports no additional complaints and Denies syncope Resp Denies cough GI Denies abdominal pain and Denies heartburn Reports as per HPI and Denies change in libido Neuro Denies syncope Psych Denies change in libido Endo Denies change in libido Physical Exam Const General: cooperative, healthy appearing, comfortable and no acute distress Orientation/consciousness: patient oriented x3 HEENT Face and sinus: Yes normal facial exam Mouth: moist mucous membranes Neck Neck: Yes normal visual inspection, Yes full ROM and Yes trachea midline Chest Chest palpation & inspection: normal inspection of the chest Resp Effort & Inspection: normal respiratory effort, able to speak in complete sentences and no respiratory distress GI Inspection: Yes normal to inspection Back/Spine/Pelvis Cervical Spine: normal cervical lordosis Thoracic/Lumbar Spine: thoracic and lumbar spine normal to inspection Skin General skin exam: no rashes or lesions noted Neuro General: patient oriented x3, gait normal, tone normal and moves all extremities Extrem General: Yes normal to inspection and Yes capillary refill normal Office Procedures Post Void Residual Post Residual Void Post Void Residual (PVR): [id number] Void Residual by ultrasound Assessment & Plan Assessment & Plan (1) BPH (benign prostatic hyperplasia): Comment: s/p TURP 03/[address] Zamora Code(s): N40.0 - Benign prostatic hyperplasia without lower urinary tract symptoms Category: Medical (2) Nephrolithiasis: Code(s): N20.0 - Calculus of kidney Category: Medical Plan Three-month follow-up PSA Orders: Orders Prostate Specific Antigen 3 Months N40.0 - Benign prostatic hyperplasia without lower urinary tract symptoms Medications: New oxybutynin chloride ER 5 mg PO DAILY 30 tabs 1RF 30 days R35.0 - Frequency of micturition Patient Instructions: This note is constructed using voice recognition software. While every effort has been made to ensure accuracy building construction inspector errors may have been included. Imaging studies, laboratory and physical exam results were discussed and reviewed in detail. No major barriers to patient understanding were identified. An opportunity to ask questions regarding the treatment plan was provided. All questions were answered. The patient expressed understanding and agreement with the above treatment plan. The patient is aware they should contact our office by phone for worsening of their current condition or the appearance of new urologic symptoms. Compliance is encouraged with any medications and followup testing that is ordered. It is a privilege to participate in the urologic care of your patient. If you have any questions or concerns regarding treatment for the above conditions, or other urologic issues, please do not hesitate to contact me. The office telephone contact is [phone]. Sincerely, Dr Teodoro Zamora MD, [facility] - Urology Compassionate Specialist Care for the Genitourinary System Coding Level of Care Code Est Pt Level 3 (84294) Diagnoses BPH (benign prostatic hyperplasia) N40.0 Nephrolithiasis N20.0 CPT Codes Post Residual Void - PVR CPT Code: 52225-Hxfq Void Residual by ultrasound ([id number])
--- OUTSIDE RECORDS SUMMARY | 2025-05-20 14:16 | XMS_ITS | Data Portability ---
Author Organization [place] - [facility], RONEY Jose PT Address [address] [place] [address] Care Team Providers Care Modeling Agent Name Role Phone GUIDO DEYANNA Primary Care Provider Assessment No assessment recorded. Plan of Treatment Reminders Order Date Submit Date Provider Last Modified By Organization Details Last Modified Time Details Appointments None recorded. Lab None recorded. Referral physical therapist referral - Dx: catarino knee OA eval & tx General non-impac t strengthe joslyn and flexibili ty program with proprioce ptive training. 2024 025 [facility]), [address] [facility], [place], [address], 5 07:13:55 Procedures None recorded. Surgeries None recorded. Imaging XR, knee, 4 or more view - 4v catarino knee. room 114 2024 025 [facility], [address], [facility] [address], [place], [address], 5 08:52:08 Medication Orders None recorded. Patient TargetsNo targets recorded. Patient InstructionsNo instructions recorded. Reason for Referral Physical Therapist Referral for Primary gonarthrosis, bilateral Dx: catarino knee OAeval & txGeneral non-impact strengthening and flexibility program with proprioceptive training. Referring Physician: Frankie Moeller, Orthopedic Surgery, Encounter Date: 03/15/2025 Results Created Date Observation Date Name Description Value Unit Range Abnormal Flag Note LastModifiedBy Organization Detail LastModifiedTime 03/15/2003/15/2025 XR, knee, 4 or more view http:/ [email or web address] ?Encry pted=s hAaTro YD8dLq bEUv6g %2BXZw aYqtaq 0bqfl% 2Fg9IQ a4ajBk vP9nXo QUaueC m3YtLR FvZlgJ JJ8mAn HZtai3 6s6449 AC0Klb 3iGV6S kKiQtr MwF INTERFACE [facility] Office [address], [place], [address], 03/15/2025 08:52:08 03/15/2003/15/2025 XR, knee, 4 or more view http:/ [email or web address] ?Encry pted=s hAaTro YD8dLq bEUv6g %2BXZw aYqtaq 0bqfl% 2Fg9IQ a4ajBk vP9nXo QUaueC m3YtLR FvZlgJ JJ8mAn HZtai3 5t4728 AC0Klb 3iGV6S kKiQtr MwF INTERFACE [facility] [address], [place], [address], 03/15/2025 08:52:09 Result Notes Documentation Provider Name and Address Organization Details Recorded Time Xr, Knee, 4 Or More View : [email or web address] Encrypted=bfWbGygXJ8vYftJ Uv6g%1URLnyEruhs7gfbv%2Fg 0WRx6jmRhfD4uElHIytyAw2Uo TIPdAlwULA7dJkJQmev30z313 6RT9Hvh1eME3KxCiReeMtM Not Available [facility] 03/15/2025 08:52: 08 Xr, Knee, 4 Or More View : [email or web address] Encrypted=gbThNaiVU5vOcjA Uv6g%9XBTtqLqumk5cxqv%2Fg 8XWv6reEdtN9uNtFPdvnZi3Lk OJUhOdrHGE7nEoIRbjw43b128 6BI8Akx2aKN1YhYgOeyGtO Not Available [facility] 03/15/2025 08:52: 10 Medical Equipment None Reported. Medications Name Sig Start Date Stop Date Status Note LastModified by Organization Details LastModified Time finasteride active Not Available Not A vailable Not Available Flomax active Not Available Not Availa ble Not Available losartan active Not Available Not Avai lable Not Available Vitals Date Recorded Body height Body mass index (BMI) Body weight Provider Name and Address Organization Details Last Updated DateTime 03/15/2025 182.88 cm 24.4 kg/m2 44558.63 g Alona Alex [place] - [facility] 03/15/2025 08:35:07 Social History None recorded. Functional Status None recorded. Mental Status None recorded. Family History Nothing Reported. Medical History Condition Response Allergies/Hayfever N Coronary Artery Disease N Anxiety/Depression N Breathing or lung disorders N Emphysema N Nerve Disorders N Thyroid Problems N COPD N Pacemaker N Anemia N Kidney/Bladder Problems N Vascular Disease N Heart Trouble N Heart Attack ([place]) N Gastrointestinal Disease N Cholesterol N Diabetes N Autoimmune disease N Bleeding Disorder N Inflammatory Joint disease N Orthotics N Arthritis Y Seizures/Epilepsy N Blood Clot N AIDS/HIV N Congestive Heart Failure (CHF) N Acid Reflux (GERD) N Cancer N Stroke N Asthma N Circulation Problems N Peripheral Vascular Disease N Sleep Apnea N Hepatitis N Heart Disease N Rheumatoid Arthritis N Arrhythmia N Pulmonary Embolism N Headaches N Fibromyalgia N Hypertension Y Osteoporosis N Past Encounters Encounter ID Performer Location Encounter Start Date Encounter Closed Date Diagnosis/Indication Diagnosis SNOMED-CT Code Diagnosis ICD10 Code Diagnosis IMO Codes Diagnosis Note [id number] [facility] [address] [place] [address] 03/15/2025 08:22:58 03/29/2025 15:15:35 Pain of bilateral knee regions [id number] 03821 M25.561 M25.562 [id number] Primary go narthrosis, bilateral 301983925 M17.0 [id number] Health Concerns Section Related Observation LastModified by Organization Detai ls LastModified Time None Recorded Concern Status LastModified by Organization Details LastModified Time None Recorded Advance Directives Directive None Recorded Payers Insurance Date Sequence Insurance Name Policy Number Policy Glez Covered Member ID Glez Member ID Guarantor Name 03/29/2025 1 [facility] (MEDICARE REPLACEMENT/A DVANTAGE - PPO) [id number] Frankie Ardon [id number] Frankie Ardon Notes Date Note Type Note Provider Name and Address Organization Details Recorded Time 03/15/2025 text/html ROS as noted in the HPI I am seeing the patient today under the supervision of Dr. Jackson who was available but who did not see the patient. HPI:Patient is a 64-year-old male who presents to the office today for bilateral knee pain. Patient's had bilateral knee pain for about 6 months. States that about 2 months ago he noticed significant decrease in pain after he became more active especially with swimming. Does still experience stiffness in both knees. He did previously have 3 arthroscopic surgeries on his right knee in [place] from 6713-8331. Has more pain and stiffness in the right than the left. At this point has no pain. Denies any catching or locking. Past family, medical, social history and review of systems has been reviewed, updated and is located in the patient s chart. Examination: Well-appearing 64-year-old male in no acute distress. Alert and oriented x 3. Ambulates with symmetric gait. Knees reveal no erythema, warmth ecchymosis, swelling. No tenderness over medial or lateral joint compartments. Range of motion of the right knee from 3-125 degrees. Range of motion of the left knee from 0-125 degrees. Right knee has mild laxity with valgus stress testing. Left knee no laxity with valgus or varus stress testing. Knee strength 5/5 against resistance bilaterally. Negative Jatin test bilaterally. Negative Arsh's maneuver bilaterally. Calf soft nontender. 4 views of the bilateral knees obtained and independently reviewed in the office today reveals right knee to have onaa-oj-pnrj articulation of the medial joint compartment with subchondral sclerosis and osteophyte formation. Left knee mild to moderate joint space narrowing of the medial joint compartment with subchondral sclerosis. Degenerative changes noted of the patellofemoral joints with the lateral patellar facet. No fracture. Impression:Bi-latera l Knee osteoarthritis Plan:We discussed the role of conservative management including medications, physical therapy, injection and bracing. Patient is done well from increased activity standpoint especially with swimming. Ultimately at this point we do not need to do anything for pain in terms of any injections or oral medications. Patient is interested in trying some formal outpatient physical therapy to learn how to do some of the exercises to do at home. Patient provided with PT prescription. Will continue to monitor symptoms and follow-up in the future as needed for continued conservative management versus surgical correction. Frankie Moeller PA-C [address] [facility] [address], [place], [address], [facility] - [facility] 03/15/2025 09:26:29
== END 2025-05-20 13:37 | disposition home or self-care (01) ==
LOC: HO.HUSH 13:09
PROVIDERS: PCP Internal Medicine; Visit Provider Urology
DX: N40.0 Benign prostatic hyperplasia without lower urinary tract symptoms (principal); N20.0 Calculus of kidney
CPT/HCPCS: 99024

== ENCOUNTER → 2025-05-20 13:07 | Outpatient (BNVA) | payer MEDICARE, SELFPAY | PROVIDERS: PCP Internal Medicine; Visit Provider Urology | DX: N40.0 Benign prostatic hyperplasia without lower urinary tract symptoms (principal) | CPT/HCPCS: 51798; 99212 ==

== ENCOUNTER 2025-06-22 08:27 | Outpatient (REF) | payer MEDICARE, SELFPAY ==
--- NOTE | ~2025-06-22 | XR_ITS ---
EXAMINATION: XR FOOT 1-2 VIEWS RIGHT HISTORY: M79.671 - Pain in right foot COMPARISON: There are no prior studies available for comparison. FINDINGS: Three views of the right foot are submitted. Osseous mineralization is normal. There is no fracture or dislocation. There is mild narrowing of the 1st MTP joint. The soft tissues are unremarkable. XR/XR foot RT 2V IMPRESSION: Mild narrowing of the 1st MTP joint. Electronically signed by: Dionicio Jensen MD 06/22/2025 09:32 AM EST
== END 2025-06-22 08:28 | disposition home or self-care (01) ==
LOC: HO.HMGCLDS 08:27
PROVIDERS: PCP Internal Medicine; Visit Provider Physician Assistant
DX: M79.671 Pain in right foot (principal)
CPT/HCPCS: 73620; 99212

== ENCOUNTER 2025-06-22 08:43 | Outpatient (AMB) | payer MEDICARE, SELFPAY ==
[2025-06-22 08:45] VITALS: BP 152/96; PULSE 74; TEMP 36.8; O2SAT 98; BMI 24.4
--- NOTE | 2025-06-22 08:45 | AM.OFFWIN_ITS ---
Intake Vital Signs 06/22/25 08:45 Height 6 ft Weight 81.647 kg BMI 24.4 BP 152/96 H Blood Pressure Location Lt brachial Position Sitting Pulse 74 Pulse Source Pulse Oximeter Temp 98.3 F Temp Source Oral Pulse Oximetry (%) 98 Oxygen Delivery Method Room Air Comment High BP: took his bp med 1hr ago, is working on BP with PCP. Provider aware Intake Visit Reasons: EP Dropped weight on right foot Intake Note: pt presents wtih right foot pain after dropping a 25lb weight on it yesterday Patient Tobacco Use Status: Never used Tobacco Allergies No Known Allergies Allergy (Verified 06/22/25 08:47) Do you need a note to return to daycare/school/sports/work: No HPI HPI Comments History of Present Illness Details Chief Complaint: ?I dropped a 25-pound weight on the top of my right foot.? History of Present Illness: Patient reports dropping a 25 lb dumbbell onto the mid-portion of his right foot yesterday morning (~24 hours ago). He experienced an immediate ?shock? reaction with transient loss of vision, followed by swelling and throbbing pain. Mid-day yesterday pain improved, but after shoveling snow it worsened significantly overnight. This morning the pain is much improved and currently absent at rest, though he describes marked tenderness over the dorsal midfoot. No other sites of pain. Denies inability to bear weight. No prior similar injuries. He is quite well otherwise and is purely active in the gym. Patient presents with right midfoot trauma from dropped weight; exam shows dorsal swelling/tenderness; X-ray ordered for evaluation. No signs of compartment syndorme or NV compromise Problem #1: Right midfoot injury ? rule out fracture Assessment: 24-hour-old blunt trauma to right midfoot with swelling and focal bony tenderness; no current pain at rest. Differential Diagnosis: * Metatarsal fracture * Lisfranc injury/fracture * Contusion/soft tissue injury * Bone bruise * Tendon or ligament injury (midfoot sprain) * Less likely: occult foreign body or infection Plan: * Obtain right foot X-ray today to evaluate for metatarsal or Lisfranc fracture. [facility] Medical History Hyperlipemia Hypertension BPH (benign prostatic hyperplasia) Strain of left biceps Left rotator cuff tear Biceps muscle tear Hearing loss in right ear Surgical History History of prostate surgery S/P right rotator cuff repair H/O lateral meniscus repair of right knee Family History Brother S/P CABG x 4, Onset Age: 50 Brother Colon polyps Social History Household Members Other:: , retired, plays golf, no children, worked for [employer] 40 yrs Housing: House Alcohol intake: current Alcohol intake frequency: does not drink Comment: 1 to 2 drinks per week Patient Tobacco Use Status: Never used Tobacco e-Cigarette/Vaping Use: Never Used Second Hand Smoke Exposure: No service: No Current occupational status: retired Cognitive needs: No Hearing needs: No Vision needs: Yes Physical Exam Exam Exam: General: ambulatory, well appearing Right Foot: Visible swelling and puffiness over the dorsum making pulse exam difficult; maximal point tenderness over the mid-dorsal aspect at the midfoot bone. Minimal tenderness elsewhere on the foot. Able to straighten and move foot. No open wounds noted. 2+ DP AT,PT equal and b/l. Normal distal sensation to LE b/l CV/Resp: no cardiopulmoary distress. Vital Signs: Last Vital Signs Temp 98.3 F 06/22/25 08:45 Pulse 74 06/22/25 08:45 BP 152/96 H 06/22/25 08:45 Pulse Ox 98 06/22/25 08:45 Oxygen Delivery Method Room Air 06/22/25 08:45 BMI result Body Mass Index 24.4 vss Assessment & Plan Assessment & Plan (1) Right foot pain: Code(s): M79.671 - Pain in right foot Plan Take your medications as prescribed. If you were prescribed antibiotics today, it is important that you take your medication to their entirety, do not skip any doses, do not finish them early. Follow-up with your primary care provider this week. Return to the emergency department with new or worsening symptoms. In case of emergency call 911 Orders: Orders XR foot RT 2V Today M79.671 - Pain in right foot Coding Level of Care Code Est Pt Level 3 (87166) Diagnoses Right foot pain M79.671
== END 2025-06-22 10:00 | disposition home or self-care (01) ==
PROVIDERS: PCP Internal Medicine; Visit Provider Physician Assistant
DX: M79.671 Pain in right foot (principal)

== ENCOUNTER → 2025-06-22 09:19 | Outpatient (BNV) | payer MEDICARE, SELFPAY | PROVIDERS: PCP Internal Medicine; Visit Provider Radiology Diagnostic Radiology | DX: M19.071 Primary osteoarthritis, right ankle and foot (principal) | CPT/HCPCS: 73620 ==

== ENCOUNTER 2025-06-30 09:49 | Outpatient (REF) | payer MEDICARE, SELFPAY ==
[2025-06-30 14:20] LABS: MANUAL DIFF FLAG NO
[2025-06-30 14:25] LABS: Hematocrit 43.1 % (42.0-52.0); Hemoglobin 14.2 g/dl (14.0-18.0); Imm Gran Abs Auto 0.01 X10*3/uL (0.00-0.03); Imm Gran Pct Auto 0.2 % (0.0-0.4); Lymphocytes Absolute Auto 1.6 X10*3/uL (1.2-4.9); Mean Corpuscular HGB Conc 32.9 g/dl (31.0-36.0); Mean Corpuscular Hemoglobin 31.4 pg (27.0-33.0); Mean Corpuscular Volume 95.4 fL (80.0-98.0); NRBC Abs Auto 0.000 X10*3/uL (0.0-0.012); NRBC Pct Auto 0.0 /100WBC (0.0-0.2); Platelet Count 279 X10*3/uL (160-400); Red Blood Count 4.52 X10*6/uL (4.60-5.80); White Blood Count 4.8 X10*3/uL (4.8-10.8)
[2025-06-30 14:55] LABS: Alanine Aminotransferase 12 U/L (0-40); Albumin Level 4.0 g/dL (3.5-5.0); Alkaline Phosphatase 42 U/L (39-117); Anion Gap 9 (12-20); Aspartate Amino Transferase 29 U/L (5-37); Blood Urea Nitrogen 30 mg/dL (9-16); Calcium 8.8 mg/dL (8.4-10.2); Carbon Dioxide 27 mmol/L (22-29); Chloride 107 mmol/L (96-108); Estimated Glomerular Filt Rate > 60; Potassium 4.3 mmol/L (3.3-5.1); Sodium 139 mmol/L (135-145); Total Protein 6.5 g/dL (6.5-8.0)
== END 2025-06-30 09:50 ==
LOC: HO.HMGCLDS 09:49
PROVIDERS: PCP Internal Medicine; Visit Provider Internal Medicine
DX: I10 Essential (primary) hypertension (principal)
CPT/HCPCS: 36415; 80053; 85025

== ENCOUNTER 2025-07-07 08:56 | Outpatient (AMB) | payer MEDICARE, SELFPAY ==
[2025-07-07 08:59] VITALS: BP 108/70; PULSE 63; RESP 17; TEMP 36.4; O2SAT 100; BMI 24.7
--- NOTE | 2025-07-07 08:59 | A.OFFPC_ITS ---
Vital Signs 07/07/25 08:59 Height 6 ft Weight 182 lb BMI 24.7 BP 108/70 Blood Pressure Location Rt brachial Position Sitting Respiration 17 Pulse 63 Pulse Source Pulse Oximeter Temp 97.5 F Temp Source Oral Pulse Oximetry (%) 100 Oxygen Delivery Method Room Air Intake Visit Reasons: EP 6 weeks f/u Intake Note: Pt is here today for 6 weeks follow up visit. Allergies No Known Allergies Allergy (Verified 07/07/25 09:03) Medication List - Last Reconciled 07/07/25 by Pattie Sierra MD finasteride 5 mg PO DAILY meloxicam 15 mg PO DAILY oxybutynin chloride ER 5 mg PO DAILY 30 days tamsulosin (Flomax) 0.4 mg PO BEDTIME valsartan 320 mg PO DAILY Tobacco use date assessed: 07/07/25 Dental Screening Dental Screen Date: 08/30/24 HPI EP 6 weeks f/u HPI Details Pt presents for HTN, BPH s/p TURP, f/u urology. Pt c/o constipation since started taking oxybutynin. Patient is still reports symptoms of urinary urgency on and off since his TURP surgery. [facility] Medical History (Updated 07/07/25 @ 09:33 by Pattie Sierra MD) Encounter for physical examination Hyperlipemia Hypertension BPH (benign prostatic hyperplasia) Strain of left biceps Left rotator cuff tear Biceps muscle tear Hearing loss in right ear Surgical History History of prostate surgery S/P right rotator cuff repair H/O lateral meniscus repair of right knee Family History Brother S/P CABG x 4, Onset Age: 50 Brother Colon polyps Social History Household Members Other:: , retired, plays golf, no children, worked for [employer] 40 yrs Housing: House Alcohol intake: current Alcohol intake frequency: does not drink Comment: 1 to 2 drinks per week Patient Tobacco Use Status: Never used Tobacco e-Cigarette/Vaping Use: Never Used Second Hand Smoke Exposure: No service: No Current occupational status: retired Cognitive needs: No Hearing needs: No Vision needs: Yes Questionnaire Thrive Questionnaire Date Thrive assessed: 08/23/24 I am a: Patient What is your living situation today?: I have a steady place to live Within the past 12 months, did the food you bought not last and you didn't have the money to get more?: Never true Within the past 12 months, did you worry whether your food would run out before you got money to buy more?: Never true Do you have trouble paying for medicines?: No Do you have trouble getting transportation to medical appointments?: No Do you have trouble paying your heating and electricity bill?: No Do you have trouble taking care of your child, family member or friend?: No Do you have trouble with day-to-day activities such as bathing, preparing meals, shopping, managing finances, etc.?: No Are you currently unemployed and looking for a job?: No Are you interested in more education?: No Please select the resources that you would like help with: None Currently or been in a relationship where the following occur: No concerns repor aaron THRIVE Score: 0 EVERETT-7 AMB Questionnaire EVERETT-7 Date EVERETT - 7 assessed: 08/30/24 Source: Developed by Drs. Dionicio aMrino, Ashley Alford, Mckinley Dominguez and colleagues, with an educational magda from [employer] Review of Systems Const All systems reviewed & are unremarkable except as noted in HPI and below ENT Reports no additional complaints Card Reports no additional complaints Resp Reports no additional complaints GI Reports no additional complaints Reports no additional complaints Physical exam (Primary Care) Vital Signs: Last Vital Signs Temp 97.5 F 07/07/25 08:59 Pulse 63 07/07/25 08:59 Resp 17 07/07/25 08:59 BP 108/70 07/07/25 08:59 Pulse Ox 100 07/07/25 08:59 Oxygen Delivery Method Room Air 07/07/25 08:59 BMI result Body Mass Index 24.7 Tobacco/Smoking Status: Tobacco use Status Tobacco use date assessed 07/07/25 07/07/25 09:09 Patient Tobacco Use Status Never used Tobacco 07/07/25 08:59 e-Cigarette/Vaping Use Never Used 07/07/25 08:59 Thrive Assessment: Date of Thrive Assessment Date Thrive assessed 08/23/24 07/07/25 08:59 Currently or been in a relationship where the following occur: No concerns reported Const General: no acute distress HENMT Mouth: Normal oral and palatal mucosa present Neck Neck: Yes supple Resp Effort & Inspection: normal respiratory effort Auscultation: clear to auscultation bilaterally Cardio Rhythm: regular rhythm Heart sounds: S1 normal heart sound present and S2 normal heart sound present GI Inspection: Yes normal to inspection Palpation (GI): Soft to palpation Coding Level of Care Code Est Pt Level 4 (18452) Diagnoses Hypertension, unspecified type I10 Hypertension type: unspecified BPH (benign prostatic hyperplasia) N40.0 Assessment & Plan Assessment & Plan (1) Hypertension: Code(s): I10 - Essential (primary) hypertension Category: Medical Qualifiers: Hypertension type: unspecified Qualified Code(s): I10 - Essential (primary) hypertension Plan: Continue valsartan low-sodium diet regular physical activity follow-up in 3 months (2) BPH (benign prostatic hyperplasia): Comment: s/p TURP 03/[address] Zamora Code(s): N40.0 - Benign prostatic hyperplasia without lower urinary tract symptoms Category: Medical Plan: Continue current medications follow-up with urology Orders: Orders Comprehensive Met. Panel 3 Months I10 - Essential (primary) hypertension Complete Blood Count Auto Diff 3 Months I10 - Essential (primary) hypertension Medications: Refilled valsartan 320 mg PO DAILY 90 tabs 3RF
--- OUTSIDE RECORDS SUMMARY | 2025-07-07 09:48 | XMS_ITS | Data Portability ---
Author Organization [place] - [facility], RONEY Jose PT Address [address] [place] [address] Care Team Providers Care Cash Surrender Calculator Name Role Phone GUIDO DEYANNA Primary Care Provider [phone] Assessment No assessment recorded. Plan of Treatment Reminders Order Date Submit Date Provider Last Modified By Organization Details Last Modified Time Details Appointments None recorded. Lab None recorded. Referral physical therapist referral - Dx: catarino knee OA eval & tx General non-impac t strengthe joslyn and flexibili ty program with proprioce ptive training. 2024 025 [facility]), [address] [facility], [place], [address], 5 07:13:55 Procedures None recorded. Surgeries None recorded. Imaging XR, knee, 4 or more view - 4v catarino knee. room 114 2024 025 [facility], [address], [facility] [address], [place], [address], 5 08:52:08 Medication Orders None recorded. Patient [...] a4ajBk vP9nXo QUaueC m3YtLR FvZlgJ JJ8mAn HZtai3 6l3188 AC0Klb 3iGV6S kKiQtr MwF INTERFACE [facility] Office [address], [place], [address], 03/15/2025 08:52:08 03/15/2003/15/2025 XR, knee, 4 or more view [email or web address] ?Encry pted=s hAaTro YD8dLq bEUv6g %2BXZw aYqtaq 0bqfl% 2Fg9IQ a4ajBk vP9nXo QUaueC m3YtLR FvZlgJ JJ8mAn HZtai3 4s1972 AC0Klb 3iGV6S kKiQtr MwF INTERFACE [facility] [address], [place], [address], 03/15/2025 08:52:09 Result Notes Documentation Provider Name and Address Organization Details Recorded Time Xr, Knee, 4 Or More View : [email or web address] Encrypted=byFxBciQB1dNwmY Uv6g%2WXUhrZulia1vylp%2Fg 8KRc1jcPafL6kToDZelgVo8Pm MZVgYwtJCN7jFnEZgsf94b407 8GO4Rac3hFL2MyYoEhdXiQ Not Available [facility] 03/15/2025 08:52: 08 Xr, Knee, 4 Or More View : [email or web address] Encrypted=fkFzWqwAR8jFwcA Uv6g%1EEUhaOldjy8kosk%2Fg 4SEx5fyBlsX6xSbCOoktHs1Je GKEfXpdOXK5wEgJLnzu66k614 0FZ4Nlb8lRP7ShYtSvhHdE Not Available [facility] 03/15/2025 08:52: 10 Medical Equipment None Reported. [...] Updated DateTime 03/15/2025 182.88 cm 24.4 kg/m2 57792.63 g Alona Alex [place] - [facility] 03/15/2025 08:35:07 Social History None recorded. Functional Status None recorded. Mental Status None recorded. Family History Nothing Reported. Medical History Condition Response Allergies/Hayfever N Coronary Artery Disease N Breathing or lung disorders N Anxiety/Depression N Emphysema N Nerve Disorders N Thyroid Problems N COPD N Pacemaker N Kidney/Bladder Problems N Anemia N Vascular Disease N Heart Trouble N Gastrointestinal Disease N Heart Attack ([place]) N Cholesterol N Diabetes N Autoimmune disease N Inflammatory Joint disease N Bleeding Disorder N Orthotics N Arthritis Y Seizures/Epilepsy N [...] ICD10 Code Diagnosis IMO Codes Diagnosis Note [id number] [facility] [address] [place] [address] 03/15/2025 08:22:58 03/29/2025 15:15:35 Pain of bilateral knee regions 1206194155 80724 M25.561 M25.562 [id number] Primary go narthrosis, bilateral [id number] M17.0 [id number] Health Concerns Section Related Observation LastModified by Organization Detai ls LastModified Time None Recorded Concern Status LastModified by Organization Details LastModified Time None Recorded Advance Directives Directive None Recorded Payers Insurance Date Sequence Insurance Name Policy Number Policy Glez Covered Member ID Glez Member ID Guarantor Name 03/29/2025 1 [facility] (MEDICARE REPLACEMENT/A DVANTAGE - PPO) [id number] Frankie Ardon [id number] Frankie Ardon Notes Date Note Type Note [...] arthroscopic surgeries on his right knee in [place] from 6959-4403. Has more pain and stiffness in the [...] office today reveals right knee to have xdjl-yi-ywpb articulation of the medial joint compartment with [...] versus surgical correction. Frankie Moeller PA-C [address] [facility] [address], [place], [address], [facility] - [facility] 03/15/2025 09:26:29
== END 2025-07-07 09:54 | disposition home or self-care (01) ==
LOC: HO.HMCC 08:57
PROVIDERS: PCP Internal Medicine; Visit Provider Internal Medicine
DX: I10 Essential (primary) hypertension (principal); N40.0 Benign prostatic hyperplasia without lower urinary tract symptoms

== ENCOUNTER → 2025-07-07 08:56 | Outpatient (BNVA) | payer MEDICARE, SELFPAY | PROVIDERS: PCP Internal Medicine; Visit Provider Internal Medicine | DX: I10 Essential (primary) hypertension (principal); N40.0 Benign prostatic hyperplasia without lower urinary tract symptoms; K59.00 Constipation, unspecified; R39.15 Urgency of urination; Z79.1 Long term (current) use of non-steroidal anti-inflammatories (NSAID) | CPT/HCPCS: 99212 ==